=== PATIENT | female | born 1960 | race African-American/Black ===

== ENCOUNTER 2019-07-03 13:18 | Inpatient (IN) | payer OTHER ==
[~2019-07-03] VITALS: Ht 152.4 cm; Wt 68.5 kg
[2019-07-03] MEDS ORDERED: PANTOPRAZOLE 40 MG 10ML VIAL IV STA (13:29)
[2019-07-03] MEDS ORDERED: SODIUM CHLORIDE 0.9% 500ML 500 ML IV STA ×2 (13:29→15:39)
[2019-07-03 14:27] LABS: BASOPHILS # (AUTO) 0.1 (0.0-0.1); EOSINOPHILS # (AUTO) 0.2 (0.0-0.4); EOSINOPHILS % 1.5 % (0.0-6.0); LYMPHOCYTES # (AUTO) 3.5 (1.0-3.2); MEAN CORPUSCULAR HEMOGLOBIN 28.1 pg (28-32); MEAN CORPUSCULAR HGB CONC 34.9 g/dL (31-35); MEAN CORPUSCULAR VOLUME 80.4 fL (81-99); MONOCYTES # (AUTO) 1.9 (0.2-0.8); MONOCYTES % 16.3 % (4.4-11.3); NEUTROPHILS % 50.9 % (38.7-80.0); PLATELET COUNT 153 x10e3/uL (140-360); RED BLOOD COUNT 2.35 x10e6/uL (3.6-5.1); RED CELL DISTRIBUTION WIDTH 21.1 % (11.7-14.4)
[2019-07-03 14:30] LABS: HEMOGLOBIN 6.6 g/dL (12.0-16.0); INR 1.86; PROTHROMBIN TIME 22.8 seconds (11.9-14.5)
[2019-07-03 14:31] LABS: HEMATOCRIT 18.9 % (34.2-44.1); PARTIAL THROMBOPLASTIN TIME 59.9 seconds (23.8-35.5)
[2019-07-03 14:39] LABS: ALBUMIN 1.8 g/dL (3.5-5.0); ALBUMIN/GLOBULIN RATIO 0.4 (0.8-2.0); ANION GAP 12.1 mmol/L (8-16); CALCIUM 8.9 mg/dL (8.4-10.2); CREATININE, SERUM 3.42 mg/dL (0.57-1.11); POTASSIUM 5.1 mmol/L (3.5-5.1)
[2019-07-03 14:45] LABS: CREATINE KINASE MB 11.3 ng/mL (0-5.0)
[2019-07-03] MEDS ORDERED: SODIUM CHLORIDE 0.9% 250ML 250 ML IV ONE (14:45)
[2019-07-03] MEDS ORDERED: ASPIR 8181 MG PO (14:57)
[2019-07-03] MEDS ORDERED: DOCUSATE SODIU100 MG PO (14:58)
[2019-07-03] MEDS ORDERED: CLONIDINE HCL0.1 MG PO (14:58)
[2019-07-03] MEDS ORDERED: ATORVASTATIN CA20 MG PO (14:58)
[2019-07-03] MEDS ORDERED: LOSARTAN POTAS100 MG PO (14:59)
[2019-07-03] MEDS ORDERED: ELIQUIS5 MG PO (14:59)
[2019-07-03] MEDS ORDERED: ONDANSETRON2 MG/1 ML PO (15:00)
[2019-07-03] MEDS ORDERED: METOPROLOL TART25 MG PO (15:00)
[2019-07-03] MEDS ORDERED: POLYETHYLENE GL17 GM PO (15:01)
[2019-07-03] MEDS ORDERED: POTASSIUM CHLO20 ME1 PO (15:02)
[2019-07-03] MEDS ORDERED: RYTARY ER 23.71 EACH PO (15:03)
[2019-07-03] MEDS ORDERED: SPIRONOLACTONE25 MG PO (15:03)
[2019-07-03] MEDS ORDERED: SODIUM CHLORIDE 0.9% 1000ML 1,000 ML IV STA (15:39)
[2019-07-03] MEDS ORDERED: SODIUM CHLORIDE 0.9% 50ML 50 ML ONE (16:00)
[2019-07-03] MEDS ORDERED: IOPAMIDOL 370 MG/ML 200 ML INFUS..BTL INJ ONE (16:00)
--- NOTE | 2019-07-03 17:02 | Diagnostic Imaging Report ---
EXAM: CT Abdomen and Pelvis WITH intravenous contrast INDICATION: Abdominal pain, rectal bleeding COMPARISON: None. TECHNIQUE: Abdomen and pelvis were scanned utilizing a multidetector helical scanner from the lung base to the pubic symphysis after administration of IV contrast. Coronal and sagittal reformations were obtained. Routine protocol was performed. Scan was performed during portal venous phase. IV CONTRAST: 100mL of Isovue 370 ORAL CONTRAST: Water RADIATION DOSE: Total DLP: 316 mGy*cm Dose modulation, iterative reconstruction, and/or weight based adjustment of the mA/kV was utilized to reduce the radiation dose to as low as reasonably achievable. FINDINGS: LOWER THORAX: Catheter tip in the right atrium. HEPATOBILIARY: No focal liver lesion. No biliary ductal dilation. Status post cholecystectomy. SPLEEN: No splenomegaly. PANCREAS: No focal masses or ductal dilatation. ADRENALS: 1.9 cm left adrenal nodule. 1.9 cm right adrenal nodule. KIDNEYS/URETERS: No hydronephrosis or renal calculi. Bilateral simple renal cysts. PELVIC ORGANS/BLADDER: Unremarkable. PERITONEUM / RETROPERITONEUM: No free air or fluid. LYMPH NODES: No lymphadenopathy. VESSELS: Mild atherosclerotic calcifications of the nonaneurysmal abdominal aorta and major branches. GI TRACT: No abnormal bowel thickening. No bowel obstruction. Normal appendix. BONES AND SOFT TISSUES: No acute osseous injury. No suspicious lytic or blastic lesions. Mild diffuse subcutaneous soft tissue edema. IMPRESSION: No acute findings in the abdomen or pelvis. Bilateral adrenal nodules. These nodules are indeterminate based on attenuation but most likely represent benign adenomas. Follow-up adrenal mass protocol is recommended in 12 months. If the nodules are stable at that time, no further follow-up imaging will be necessary. Signed by: Tete Borges MD on 07/03/2019 4:59 PM
--- OUTSIDE RECORDS SUMMARY | 2019-07-03 17:04 | XMS REPORT ---
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 Allergies, Adverse Reactions, Alerts Allergy Name Allergy Type Status Severity Reaction(s) Onset Date Inactive Date Treating Clinician Comments No Known Allergies DA Active U 2017-03-11 00:00:00 Medications This patient has no known medications. Results Test Description Test Time Test Comments Text Results Atomic Results Result Comments AB HEPATITIS A 2019-06-23 07:09:00 AB HEPATITIS A (test code=HAVAB) Negative Negative AB HEPATITIS A [id number] 07:09:00* Test Item Value Reference Range Comments AB HEPATITIS A IGM (test code=HAVMAB) AB HEPATITIS [id number] 07:09:00* Test Item Value Reference Range Comments AB HEPATITIS A (test code=HAVAB) Negative Negative AB HEPATITIS A [id number] 07:09:00* Test Item Value Reference Range Comments AB HEPATITIS A IGM (test code=HAVMAB) Negative Negative Performed At: [facility] [address] [id number] Lucio Augustin MD Ph:[phone] COMPREHENSIVE METABOLIC [id number] 06:11:00* Test Item Value Reference Range Comments SODIUM (test code=NA) 136 mmol/L 134-147 POTASSIUM (test code=K) 3.2 mmol/L 3.4-5.0 CHLORIDE (test code=CL) 103 mmol/L 100-108 CARBON DIOXIDE (test code=CO2) 25 mmol/L 21-32 ANION GAP (test code=GAP) 8.0 GAP calc 4.0-15.0 GLUCOSE (test code=GLU) 114 MG/DL 70-110 BLOOD UREA NITROGEN (test code=BUN) 30 MG/DL 7-18 GLOMERULAR FILTRATION RATE (test code=GFR) 24 estGFR >60 CREATININE (test code=CREAT) 2.6 MG/DL 0.6-1.0 TOTAL PROTEIN (test code=PROT) 6.3 G/DL 6.4-8.2 ALBUMIN (test code=ALB) 1.8 G/DL 3.4-5.0 GLOBULIN (test code=GLOB) 4.5 GM/dL ALBUMIN/GLOBULIN RATIO (test code=A/G) 0.4 RATIO 1.2-2.2 CALCIUM (test code=CA) 8.4 MG/DL 8.5-10.1 BILIRUBIN TOTAL (test code=BILT) 2.50 MG/DL 0.2-1.2 SGOT/AST (test code=AST) 1488 Unit/L 15-37 SGPT/ALT (test code=ALT) 1697 Unit/L 12-78 ALKALINE PHOSPHATASE TOTAL (test code=ALKP) 259 Unit/L 45-117 CBC W/AUTO [id number] 05:52:00* Test Item Value Reference Range Comments WHITE BLOOD CELL (test code=WBC) 7.9 K/mm3 3.5-11.0 RED BLOOD CELL (test code=RBC) 3.13 M/mm3 4.70-6.10 HEMOGLOBIN (test code=HGB) 8.9 G/DL 10.4-14.9 HEMATOCRIT (test code=HCT) 24.5 % 31.5-44.1 MEAN CELL VOLUME (test code=MCV) 78.3 Fl 84.5-98.6 MEAN CELL HGB (test code=MCH) 28.4 pg 27.0-34.2 MEAN CELL HGB CONCETRATION (test code=MCHC) 36.3 G/DL 31.5-34.0 RED CELL DISTRIBUTION WIDTH (test code=RDW) 20.6 SD 11.5-14.5 PLATELET COUNT (test code=PLT) 241.0 K/mm3 150-450 MEAN PLATELET VOLUME (test code=MPV) 10.90 fL 7.0-10.5 NEUTROPHIL % (test code=NT%) 58.5 % 40-76 LYMPHOCYTE % (test code=LY%) 20.0 % 20.5-51.1 MONOCYTE % (test code=MO%) 17.0 % 1.7-9.3 EOSINOPHIL % (test code=EO%) 3.5 % 0.0-6.0 BASOPHIL % (test code=BA%) 1.0 % 0.0-2.0 NEUTROPHIL # (test code=NT#) 4.62 K/mm3 1.8-7.6 LYMPHOCYTE # (test code=LY#) 1.6 K/mm3 0.6-3.2 MONOCYTE # (test code=MO#) 1.3 K/mm3 0.3-1.1 EOSINOPHIL # (test code=EO#) 0.3 K/mm3 0.0-0.4 BASOPHIL # (test code=BA#) 0.1 K/mm3 0.0-0.1 MANUAL DIFF REQUIRED (test code=MDIFF) NO DIFF/SCN CRITERIA - SP FLUORO GUID CTRL ACC [id number] 17:23:00 Name: KATY ESTES [facility] : 1960 Age/S: 59 / F [address] [address] [place] Unit #: [id number] Loc: [place] [address] Phys: Jama Osorio MD Acct: [id number] Dis Date: Status: ADM IN PHONE #: [phone] Exam Date: 06/19/2019 3038 FAX #: Reason: TUNNELED DIALYSIS CATH PLACEMENT EXAMS: CPT: [id number] SP FLUORO GUID CTRL ACC DEV 35800 Fluoro Time: :24 DAP (Gy m2): 45 Air Kerma (mGy): 2 EXAMINATION: TUNNELED CENTRAL VENOUS CATHETER PLACEMENT USING ULTRASOUND AND FLUOROSCOPIC GUIDANCE. LOCATION: S17. HISTORY: LUIS on CKD, hyperkalemia, request is made of tunneled dialysis catheter. COMPARISON: None. SEDATION: Moderate sedation was administered under the attending physician's direction and continuous monitoring by a trained nurse specialist who was independent from those actually performing the procedure. Total monitored intraservice sedation time was 25 minutes. RADIATION DOSE: 2 mGy. TECHNIQUE: The risks, benefits and alternatives were discussed and informed consent was obtained. Prior to beginning the procedure, [place] Protocol was used to confirm the patient's identity and planned procedure. Prior to the procedure, the central veins were evaluated by ultrasound, an image recorded and saved in PACS. Maximum sterile barriers including cap, mask, hand hygiene, sterile gloves, sterile gown, large sterile drape and cutaneous antisepsis were used. The skin over the right internal jugular vein was sterilely prepped, draped and infiltrated with 1% lidocaine. The vein was accessed with a 21 gauge needle using realtime ultrasound guidance. A guidewire and catheter were then passed centrally using fluoroscopic guidance. The intravascular irving th from the access site to the right atrium was then assessed. After infiltrating the skin in the subclavicular region with 1% lidoca ine, a short transverse incision was made and the 24 cm DuraMax was tunnel ed to the internal jugular access site and inserted through a peel-away sh eath. The catheter was flushed with 100U/ml heparin. The incision in the lower neck was closed using 3-0 Vicryl and Dermabond. A sterile dr essing was applied. ESTIMATED BLOOD LOSS: Less than 30 milliliter s. DISCHARGED TO: Recovery and then to inpatient unit. PAGE 1 Signed Report (CONTINUED) Norberto caass: KATY ESTES [facility] : Age/S: 59 / F [address] [facility] Unit #: [id number] Loc: [place] [address] Phys: Jenni Osorio MD Acct: [id number] Dis Da te: Status: ADM IN PHONE #: Exam Date: 06/19/2019 1414 FAX #: Reason: TUNNELED DIALYSIS CATH PLACEMENT EXAMS: CPT: [id number] SP FLUORO GUID CTRL ACC DEV 72534 Fluoro Time: :24 DAP (Gy m2): 45 Air Kerma (mGy): 2 <Continued> CONDITION: Stable. FINDINGS: Ultrasound image shows a patent vein in the lower neck. The final fluoroscopic image demonstrates the catheter with its tip in the right atrium. No complications are seen. IMPRESSION: Successful tunneled catheter placement. PLAN: The catheter is ready for immediate use. When treatment is completed, removal can be scheduled by calling VIR. at 1723 Reported and signed by: Juliocesar Demarco M.D. CC: Jama Osorio MD PAGE 2 Signed Report Name: [place] : 1960 Age/S: 59 / F [address] [address] [place] Unit #: [id number] Loc: [place] [address] Phys: Jama Osorio MD Acct: [id number] Dis Date: Status: ADM IN PHONE #: [phone] Exam Date: 06/19/2019 1415 FAX #: Reason: TUNNELED DIALYSIS CATH PLACEMENT EXAMS: CPT: [id number] SP FLUORO GUID CTRL ACC DEV 60800 Fluoro Time: :24 DAP (Gy m2): 45 Air Kerma (mGy): 2 <Continued> Technologist: Prashanth Rivas RT(R) Trnscb Date/Time: 06/19/2019 (1722) [email or web address] Orig Print D/T: S: 06/19/2019 (1725) PAGE 3 Signed Report CBC W/AUTO [id number] 05:41:00* Test Item Value Reference Range Comments WHITE BLOOD CELL (test code=WBC) 11.0 K/mm3 3.5-11.0 RED BLOOD CELL (test code=RBC) 3.32 M/mm3 4.70-6.10 HEMOGLOBIN (test code=HGB) 9.3 G/DL 10.4-14.9 HEMATOCRIT (test code=HCT) 26.0 % 31.5-44.1 MEAN CELL VOLUME (test code=MCV) 78.3 Fl 84.5-98.6 MEAN CELL HGB (test code=MCH) 28.0 pg 27.0-34.2 MEAN CELL HGB CONCETRATION (test code=MCHC) 35.8 G/DL 31.5-34.0 RED CELL DISTRIBUTION WIDTH (test code=RDW) 20.4 SD 11.5-14.5 PLATELET COUNT (test code=PLT) 261.0 K/mm3 150-450 MEAN PLATELET VOLUME (test code=MPV) 12.00 fL 7.0-10.5 NEUTROPHIL % (test code=NT%) 62.4 % 40-76 LYMPHOCYTE % (test code=LY%) 19.3 % 20.5-51.1 MONOCYTE % (test code=MO%) 14.7 % 1.7-9.3 EOSINOPHIL % (test code=EO%) 3.1 % 0.0-6.0 BASOPHIL % (test code=BA%) 0.5 % 0.0-2.0 NEUTROPHIL # (test code=NT#) 6.84 K/mm3 1.8-7.6 LYMPHOCYTE # (test code=LY#) 2.1 K/mm3 0.6-3.2 MONOCYTE # (test code=MO#) 1.6 K/mm3 0.3-1.1 EOSINOPHIL # (test code=EO#) 0.3 K/mm3 0.0-0.4 BASOPHIL # (test code=BA#) 0.1 K/mm3 0.0-0.1 MANUAL DIFF REQUIRED (test code=MDIFF) NO DIFF/SCN CRITERIA SLIDE REVIEW CONSISTANT WITH AUTO DIFFERENTIAL. CBC W/AUTO [id number] 05:41:00* Test Item Value Reference Range Comments WHITE BLOOD CELL (test code=WBC) 11.0 K/mm3 3.5-11.0 RED BLOOD CELL (test code=RBC) 3.32 M/mm3 4.70-6.10 HEMOGLOBIN (test code=HGB) 9.3 G/DL 10.4-14.9 HEMATOCRIT (test code=HCT) 26.0 % 31.5-44.1 MEAN CELL VOLUME (test code=MCV) 78.3 Fl 84.5-98.6 MEAN CELL HGB (test code=MCH) 28.0 pg 27.0-34.2 MEAN CELL HGB CONCETRATION (test code=MCHC) 35.8 G/DL 31.5-34.0 RED CELL DISTRIBUTION WIDTH (test code=RDW) 20.4 SD 11.5-14.5 PLATELET COUNT (test code=PLT) 261.0 K/mm3 150-450 MEAN PLATELET VOLUME (test code=MPV) 12.00 fL 7.0-10.5 NEUTROPHIL % (test code=NT%) 62.4 % 40-76 LYMPHOCYTE % (test code=LY%) 19.3 % 20.5-51.1 MONOCYTE % (test code=MO%) 14.7 % 1.7-9.3 EOSINOPHIL % (test code=EO%) 3.1 % 0.0-6.0 BASOPHIL % (test code=BA%) 0.5 % 0.0-2.0 NEUTROPHIL # (test code=NT#) 6.84 K/mm3 1.8-7.6 LYMPHOCYTE # (test code=LY#) 2.1 K/mm3 0.6-3.2 MONOCYTE # (test code=MO#) 1.6 K/mm3 0.3-1.1 EOSINOPHIL # (test code=EO#) 0.3 K/mm3 0.0-0.4 BASOPHIL # (test code=BA#) 0.1 K/mm3 0.0-0.1 MANUAL DIFF REQUIRED (test code=MDIFF) NO DIFF/SCN CRITERIA SLIDE REVIEW CONSISTANT WITH AUTO DIFFERENTIAL. RBC [id number] 05:41:00* Test Item Value Reference Range Comments ANISOCYTOSIS (test code=ANISO) TRACE NONE TARGET CELLS (test code=TGT) 1+ ON SCAN NONE PLATELET ESTIMATE (test code=PLTEST) ADEQUATE THOUSAND ADEQUATE PLATELET MORPHOLOGY (test code=PLTMORPH) NORMAL CBC W/AUTO [id number] 05:41:00* Test Item Value Reference Range Comments WHITE BLOOD CELL (test code=WBC) 11.0 K/mm3 3.5-11.0 RED BLOOD CELL (test code=RBC) 3.32 M/mm3 4.70-6.10 HEMOGLOBIN (test code=HGB) 9.3 G/DL 10.4-14.9 HEMATOCRIT (test code=HCT) 26.0 % 31.5-44.1 MEAN CELL VOLUME (test code=MCV) 78.3 Fl 84.5-98.6 MEAN CELL HGB (test code=MCH) 28.0 pg 27.0-34.2 MEAN CELL HGB CONCETRATION (test code=MCHC) 35.8 G/DL 31.5-34.0 RED CELL DISTRIBUTION WIDTH (test code=RDW) 20.4 SD 11.5-14.5 PLATELET COUNT (test code=PLT) 261.0 K/mm3 150-450 MEAN PLATELET VOLUME (test code=MPV) 12.00 fL 7.0-10.5 NEUTROPHIL % (test code=NT%) 62.4 % 40-76 LYMPHOCYTE % (test code=LY%) 19.3 % 20.5-51.1 MONOCYTE % (test code=MO%) 14.7 % 1.7-9.3 EOSINOPHIL % (test code=EO%) 3.1 % 0.0-6.0 BASOPHIL % (test code=BA%) 0.5 % 0.0-2.0 NEUTROPHIL # (test code=NT#) 6.84 K/mm3 1.8-7.6 LYMPHOCYTE # (test code=LY#) 2.1 K/mm3 0.6-3.2 MONOCYTE # (test code=MO#) 1.6 K/mm3 0.3-1.1 EOSINOPHIL # (test code=EO#) 0.3 K/mm3 0.0-0.4 BASOPHIL # (test code=BA#) 0.1 K/mm3 0.0-0.1 MANUAL DIFF REQUIRED (test code=MDIFF) NO DIFF/SCN CRITERIA SLIDE REVIEW CONSISTANT WITH AUTO DIFFERENTIAL. BASIC METABOLIC [id number] 05:33:00* Test Item Value Reference Range Comments SODIUM (test code=NA) 135 mmol/L 134-147 POTASSIUM (test code=K) 4.5 mmol/L 3.4-5.0 CHLORIDE (test code=CL) 104 mmol/L 100-108 CARBON DIOXIDE (test code=CO2) 22 mmol/L 21-32 ANION GAP (test code=GAP) 9.0 GAP calc 4.0-15.0 GLUCOSE (test code=GLU) 125 MG/DL 70-110 BLOOD UREA NITROGEN (test code=BUN) 73 MG/DL 7-18 GLOMERULAR FILTRATION RATE (test code=GFR) 12 estGFR >60 CREATININE (test code=CREAT) 4.7 MG/DL 0.6-1.0 CALCIUM (test code=CA) 8.9 MG/DL 8.5-10.1 COMPREHENSIVE METABOLIC [id number] 05:33:00* Test Item Value Reference Range Comments TOTAL PROTEIN (test code=PROT) 6.5 G/DL 6.4-8.2 ALBUMIN (test code=ALB) 1.8 G/DL 3.4-5.0 GLOBULIN (test code=GLOB) 4.7 GM/dL ALBUMIN/GLOBULIN RATIO (test code=A/G) 0.4 RATIO 1.2-2.2 BILIRUBIN TOTAL (test code=BILT) 2.20 MG/DL 0.2-1.2 SGOT/AST (test code=AST) 1219 Unit/L 15-37 SGPT/ALT (test code=ALT) 1464 Unit/L 12-78 ALKALINE PHOSPHATASE TOTAL (test code=ALKP) 271 Unit/L 45-117 PROTHROMBIN [id number] 05:13:00* Test Item Value Reference Range Comments PT PATIENT (test code=PTP) 21.1 SECONDS 9.3-12.9 INTERNATIONAL NORMAL RATIO (test code=INR) 1.84 INR Unit 0.8-1.2 THROMBOPLASTIN TIME [id number] 05:13:00* Test Item Value Reference Range Comments THROMBOPLASTIN TIME PARTIAL (test code=PTT) 31.9 SECONDS 26-35 CBC W/AUTO [id number] 05:07:00* Test Item Value Reference Range Comments WHITE BLOOD CELL (test code=WBC) 11.0 K/mm3 3.5-11.0 RED BLOOD CELL (test code=RBC) 3.32 M/mm3 4.70-6.10 HEMOGLOBIN (test code=HGB) 9.3 G/DL 10.4-14.9 HEMATOCRIT (test code=HCT) 26.0 % 31.5-44.1 MEAN CELL VOLUME (test code=MCV) 78.3 Fl 84.5-98.6 MEAN CELL HGB (test code=MCH) 28.0 pg 27.0-34.2 MEAN CELL HGB CONCETRATION (test code=MCHC) 35.8 G/DL 31.5-34.0 RED CELL DISTRIBUTION WIDTH (test code=RDW) 20.4 SD 11.5-14.5 PLATELET COUNT (test code=PLT) 261.0 K/mm3 150-450 MEAN PLATELET VOLUME (test code=MPV) 12.00 fL 7.0-10.5 NEUTROPHIL % (test code=NT%) % 40-76 LYMPHOCYTE % (test code=LY%) % 20.5-51.1 MONOCYTE % (test code=MO%) % 1.7-9.3 EOSINOPHIL % (test code=EO%) % 0.0-6.0 BASOPHIL % (test code=BA%) % 0.0-2.0 NEUTROPHIL # (test code=NT#) K/mm3 1.8-7.6 LYMPHOCYTE # (test code=LY#) K/mm3 0.6-3.2 MONOCYTE # (test code=MO#) K/mm3 0.3-1.1 EOSINOPHIL # (test code=EO#) K/mm3 0.0-0.4 BASOPHIL # (test code=BA#) K/mm3 0.0-0.1 MANUAL DIFF REQUIRED (test code=MDIFF) DIFF/SCN CRITERIA PROTHROMBIN [id number] 10:06:00* Test Item Value Reference Range Comments PT PATIENT (test code=PTP) 24.4 SECONDS 9.3-12.9 INTERNATIONAL NORMAL RATIO (test code=INR) 2.13 INR Unit 0.8-1.2 THROMBOPLASTIN TIME [id number] 10:06:00* Test Item Value Reference Range Comments THROMBOPLASTIN TIME PARTIAL (test code=PTT) 32.2 SECONDS 26-35 CBC W/AUTO [id number] 06:03:00* Test Item Value Reference Range Comments WHITE BLOOD CELL (test code=WBC) 11.4 K/mm3 3.5-11.0 RED BLOOD CELL (test code=RBC) 3.47 M/mm3 4.70-6.10 HEMOGLOBIN (test code=HGB) 9.5 G/DL 10.4-14.9 HEMATOCRIT (test code=HCT) 27.1 % 31.5-44.1 MEAN CELL VOLUME (test code=MCV) 78.1 Fl 84.5-98.6 MEAN CELL HGB (test code=MCH) 27.4 pg 27.0-34.2 MEAN CELL HGB CONCETRATION (test code=MCHC) 35.1 G/DL 31.5-34.0 RED CELL DISTRIBUTION WIDTH (test code=RDW) 20.2 SD 11.5-14.5 PLATELET COUNT (test code=PLT) 248.0 K/mm3 150-450 MEAN PLATELET VOLUME (test code=MPV) 11.30 fL 7.0-10.5 NEUTROPHIL % (test code=NT%) 64.2 % 40-76 LYMPHOCYTE % (test code=LY%) 18.0 % 20.5-51.1 MONOCYTE % (test code=MO%) 14.2 % 1.7-9.3 EOSINOPHIL % (test code=EO%) 3.0 % 0.0-6.0 BASOPHIL % (test code=BA%) 0.6 % 0.0-2.0 NEUTROPHIL # (test code=NT#) 7.31 K/mm3 1.8-7.6 LYMPHOCYTE # (test code=LY#) 2.1 K/mm3 0.6-3.2 MONOCYTE # (test code=MO#) 1.6 K/mm3 0.3-1.1 EOSINOPHIL # (test code=EO#) 0.3 K/mm3 0.0-0.4 BASOPHIL # (test code=BA#) 0.1 K/mm3 0.0-0.1 MANUAL DIFF REQUIRED (test code=MDIFF) NO DIFF/SCN CRITERIA SLIDE REVIEW CONSISTANT WITH AUTO DIFFERENTIAL. CBC W/AUTO [id number] 06:03:00* Test Item Value Reference Range Comments WHITE BLOOD CELL (test code=WBC) 11.4 K/mm3 3.5-11.0 RED BLOOD CELL (test code=RBC) 3.47 M/mm3 4.70-6.10 HEMOGLOBIN (test code=HGB) 9.5 G/DL 10.4-14.9 HEMATOCRIT (test code=HCT) 27.1 % 31.5-44.1 MEAN CELL VOLUME (test code=MCV) 78.1 Fl 84.5-98.6 MEAN CELL HGB (test code=MCH) 27.4 pg 27.0-34.2 MEAN CELL HGB CONCETRATION (test code=MCHC) 35.1 G/DL 31.5-34.0 RED CELL DISTRIBUTION WIDTH (test code=RDW) 20.2 SD 11.5-14.5 PLATELET COUNT (test code=PLT) 248.0 K/mm3 150-450 MEAN PLATELET VOLUME (test code=MPV) 11.30 fL 7.0-10.5 NEUTROPHIL % (test code=NT%) 64.2 % 40-76 LYMPHOCYTE % (test code=LY%) 18.0 % 20.5-51.1 MONOCYTE % (test code=MO%) 14.2 % 1.7-9.3 EOSINOPHIL % (test code=EO%) 3.0 % 0.0-6.0 BASOPHIL % (test code=BA%) 0.6 % 0.0-2.0 NEUTROPHIL # (test code=NT#) 7.31 K/mm3 1.8-7.6 LYMPHOCYTE # (test code=LY#) 2.1 K/mm3 0.6-3.2 MONOCYTE # (test code=MO#) 1.6 K/mm3 0.3-1.1 EOSINOPHIL # (test code=EO#) 0.3 K/mm3 0.0-0.4 BASOPHIL # (test code=BA#) 0.1 K/mm3 0.0-0.1 MANUAL DIFF REQUIRED (test code=MDIFF) NO DIFF/SCN CRITERIA SLIDE REVIEW CONSISTANT WITH AUTO DIFFERENTIAL. RBC [id number] 06:03:00* Test Item Value Reference Range Comments ANISOCYTOSIS (test code=ANISO) 1+ NONE MICROCYTOSIS (test code=MICR) 1+ ON SCAN NONE HYPERSEGMENTED POLYS (test code=HYPP) TRACE ON SCAN NONE PLATELET ESTIMATE (test code=PLTEST) ADEQUATE THOUSAND ADEQUATE PLATELET MORPHOLOGY (test code=PLTMORPH) NORMAL CBC W/AUTO [id number] 06:03:00* Test Item Value Reference Range Comments WHITE BLOOD CELL (test code=WBC) 11.4 K/mm3 3.5-11.0 RED BLOOD CELL (test code=RBC) 3.47 M/mm3 4.70-6.10 HEMOGLOBIN (test code=HGB) 9.5 G/DL 10.4-14.9 HEMATOCRIT (test code=HCT) 27.1 % 31.5-44.1 MEAN CELL VOLUME (test code=MCV) 78.1 Fl 84.5-98.6 MEAN CELL HGB (test code=MCH) 27.4 pg 27.0-34.2 MEAN CELL HGB CONCETRATION (test code=MCHC) 35.1 G/DL 31.5-34.0 RED CELL DISTRIBUTION WIDTH (test code=RDW) 20.2 SD 11.5-14.5 PLATELET COUNT (test code=PLT) 248.0 K/mm3 150-450 MEAN PLATELET VOLUME (test code=MPV) 11.30 fL 7.0-10.5 NEUTROPHIL % (test code=NT%) 64.2 % 40-76 LYMPHOCYTE % (test code=LY%) 18.0 % 20.5-51.1 MONOCYTE % (test code=MO%) 14.2 % 1.7-9.3 EOSINOPHIL % (test code=EO%) 3.0 % 0.0-6.0 BASOPHIL % (test code=BA%) 0.6 % 0.0-2.0 NEUTROPHIL # (test code=NT#) 7.31 K/mm3 1.8-7.6 LYMPHOCYTE # (test code=LY#) 2.1 K/mm3 0.6-3.2 MONOCYTE # (test code=MO#) 1.6 K/mm3 0.3-1.1 EOSINOPHIL # (test code=EO#) 0.3 K/mm3 0.0-0.4 BASOPHIL # (test code=BA#) 0.1 K/mm3 0.0-0.1 MANUAL DIFF REQUIRED (test code=MDIFF) NO DIFF/SCN CRITERIA SLIDE REVIEW CONSISTANT WITH AUTO DIFFERENTIAL. BASIC METABOLIC [id number] 05:10:00* Test Item Value Reference Range Comments SODIUM (test code=NA) 134 mmol/L 134-147 POTASSIUM (test code=K) 4.4 mmol/L 3.4-5.0 CHLORIDE (test code=CL) 103 mmol/L 100-108 CARBON DIOXIDE (test code=CO2) 22 mmol/L 21-32 ANION GAP (test code=GAP) 9.0 GAP calc 4.0-15.0 GLUCOSE (test code=GLU) 144 MG/DL 70-110 BLOOD UREA NITROGEN (test code=BUN) 62 MG/DL 7-18 GLOMERULAR FILTRATION RATE (test code=GFR) 12 estGFR >60 CREATININE (test code=CREAT) 4.7 MG/DL 0.6-1.0 CALCIUM (test code=CA) 8.7 MG/DL 8.5-10.1 CBC W/AUTO [id number] 05:06:00* Test Item Value Reference Range Comments WHITE BLOOD CELL (test code=WBC) 11.4 K/mm3 3.5-11.0 RED BLOOD CELL (test code=RBC) 3.47 M/mm3 4.70-6.10 HEMOGLOBIN (test code=HGB) 9.5 G/DL 10.4-14.9 HEMATOCRIT (test code=HCT) 27.1 % 31.5-44.1 MEAN CELL VOLUME (test code=MCV) 78.1 Fl 84.5-98.6 MEAN CELL HGB (test code=MCH) 27.4 pg 27.0-34.2 MEAN CELL HGB CONCETRATION (test code=MCHC) 35.1 G/DL 31.5-34.0 RED CELL DISTRIBUTION WIDTH (test code=RDW) 20.2 SD 11.5-14.5 PLATELET COUNT (test code=PLT) 248.0 K/mm3 150-450 MEAN PLATELET VOLUME (test code=MPV) 11.30 fL 7.0-10.5 NEUTROPHIL % (test code=NT%) % 40-76 LYMPHOCYTE % (test code=LY%) % 20.5-51.1 MONOCYTE % (test code=MO%) % 1.7-9.3 EOSINOPHIL % (test code=EO%) % 0.0-6.0 BASOPHIL % (test code=BA%) % 0.0-2.0 NEUTROPHIL # (test code=NT#) K/mm3 1.8-7.6 LYMPHOCYTE # (test code=LY#) K/mm3 0.6-3.2 MONOCYTE # (test code=MO#) K/mm3 0.3-1.1 EOSINOPHIL # (test code=EO#) K/mm3 0.0-0.4 BASOPHIL # (test code=BA#) K/mm3 0.0-0.1 MANUAL DIFF REQUIRED (test code=MDIFF) DIFF/SCN CRITERIA - US ABDOMEN [id number] 09:24:00 Name: KATY ESTES [facility] : 1960 Age/S: 59 / F [address] [address] [place] Unit #: [id number] Loc: [place] [address] Phys: Theodore Mitchell MD Acct: [id number] Dis Date: Status: ADM IN PHONE #: [phone] Exam Date: 06/17/2019 0830 FAX #: Reason: ELEVATED LFTS, ABDOMINAL PAIN EXAMS: CPT: [id number] US ABDOMEN COMPLETE [id number] EXAMINATION: - US ABDOMEN COMPLETE. LOCATION: S17. HISTORY: Elevated LFTs, abdominal pain, hyperkalemia, CKD. COMPARISON: US renal 06/10/2019. TECHNIQUE: Examination of the liver, spleen, kidneys, pancreas, gallbladder, bile ducts, aorta and inferior vena cava was performed. FINDINGS: The visualized liver parenchyma demonstrates diffusely increased echogenicity. The main portal vein is patent. Small amount of upper abdominal free fluid. There is no intra or extrahepatic biliary ductal dilatation. The common duct measures 4 mm. The gallbladder is surgically absent. The visualized pancreatic head and body appears unremarkable, evaluation of the tail is limited by overlying bowel gas. Spleen is unremarkable in size. The right and left kidney measure 10.1 cm and 8.1 cm respectively. There is no hydronephrosis. 2.1 cm cyst in lower pole of right kidney. 1 cm cyst in lower pole of left kidney. The visualized portions of abdominal aorta and IVC appear unremarkable. IMPRESSION: Cholecystec lewis. Diffusely increased echogenicity of liver parenchyma, no nspecific, most commonly described in the setting of hepatic steatosis v ersus underlying parenchymal process. Small upper abdo peggy free fluid. PAGE 1 Signed Report (CONTINUED) Name: KATY ESTES [place] : 1960 Age/S: 59 / F [id number] [address] [place] Unit #: [id number] Loc: [place] [address] Phys: Theodore Mitchell MD Acct: [id number] Dis Date: Status: ADM IN PHONE #: [phone] Exam Date: 06/17/2019 08 FAX #: Reason: ELEVATED LFTS, ABDOMINAL PAIN EXAMS: CPT: [id number] US ABDOMEN COMPLETE [id number] < Continued> at 0924 Reported and signed by: Juliocesar Demarco M.D. CC: Theodore Mitchell MD; Lizett BENAVIDEZ; Jama Osorio MD Technologist: Renetta Franco [facility] Date/Time: 06/17/2019 (923) [email or web address] PAGE 2 Signed Report Name: KATY ESTES [place] : 1960 Age/S: 59 / F [id number] [address] [place] Unit #: [id number] Loc: [place] [address] Phys: Theodore Mitchell MD Acct: [id number] Dis Date: Status: ADM IN PHONE #: [phone] Exam Date: 06/17/2019 0830 FAX #: Reason: ELEVATED LFTS, ABDOMINAL PAIN EXAMS: CPT: [id number] US ABDOMEN COMPLETE 16401 <Continued> Orig Print D/T: S: 06/17/2019 (926) Probe: PAGE 3 Signed Report COMPREHENSIVE METABOLIC [id number] 06:15:00* Test Item Value Reference Range Comments SODIUM (test code=NA) 134 mmol/L 134-147 POTASSIUM (test code=K) 4.7 mmol/L 3.4-5.0 CHLORIDE (test code=CL) 102 mmol/L 100-108 CARBON DIOXIDE (test code=CO2) 25 mmol/L 21-32 ANION GAP (test code=GAP) 7.0 GAP calc 4.0-15.0 GLUCOSE (test code=GLU) 283 MG/DL 70-110 BLOOD UREA NITROGEN (test code=BUN) 52 MG/DL 7-18 GLOMERULAR FILTRATION RATE (test code=GFR) 14 estGFR >60 CREATININE (test code=CREAT) 4.2 MG/DL 0.6-1.0 TOTAL PROTEIN (test code=PROT) 5.9 G/DL 6.4-8.2 ALBUMIN (test code=ALB) 1.7 G/DL 3.4-5.0 GLOBULIN (test code=GLOB) 4.2 GM/dL ALBUMIN/GLOBULIN RATIO (test code=A/G) 0.4 RATIO 1.2-2.2 CALCIUM (test code=CA) 8.5 MG/DL 8.5-10.1 BILIRUBIN TOTAL (test code=BILT) 1.90 MG/DL 0.2-1.2 SGOT/AST (test code=AST) 996 Unit/L 15-37 SGPT/ALT (test code=ALT) 1142 Unit/L 12-78 ALKALINE PHOSPHATASE TOTAL (test code=ALKP) 267 Unit/L 45-117 [id number] 06:15:00* Test Item Value Reference Range Comments LIPASE (test code=LIP) 4061 Unit/L 114-286 CBC W/AUTO [id number] 06:08:00* Test Item Value Reference Range Comments WHITE BLOOD CELL (test code=WBC) 12.8 K/mm3 3.5-11.0 RED BLOOD CELL (test code=RBC) 3.27 M/mm3 4.70-6.10 HEMOGLOBIN (test code=HGB) 9.1 G/DL 10.4-14.9 HEMATOCRIT (test code=HCT) 25.7 % 31.5-44.1 MEAN CELL VOLUME (test code=MCV) 78.6 Fl 84.5-98.6 MEAN CELL HGB (test code=MCH) 27.8 pg 27.0-34.2 MEAN CELL HGB CONCETRATION (test code=MCHC) 35.4 G/DL 31.5-34.0 RED CELL DISTRIBUTION WIDTH (test code=RDW) 20.0 SD 11.5-14.5 PLATELET COUNT (test code=PLT) 234.0 K/mm3 150-450 MEAN PLATELET VOLUME (test code=MPV) 11.60 fL 7.0-10.5 NEUTROPHIL % (test code=NT%) 70.7 % 40-76 LYMPHOCYTE % (test code=LY%) 15.2 % 20.5-51.1 MONOCYTE % (test code=MO%) 12.1 % 1.7-9.3 EOSINOPHIL % (test code=EO%) 1.5 % 0.0-6.0 BASOPHIL % (test code=BA%) 0.5 % 0.0-2.0 NEUTROPHIL # (test code=NT#) 9.05 K/mm3 1.8-7.6 LYMPHOCYTE # (test code=LY#) 2.0 K/mm3 0.6-3.2 MONOCYTE # (test code=MO#) 1.6 K/mm3 0.3-1.1 EOSINOPHIL # (test code=EO#) 0.2 K/mm3 0.0-0.4 BASOPHIL # (test code=BA#) 0.1 K/mm3 0.0-0.1 MANUAL DIFF REQUIRED (test code=MDIFF) NO DIFF/SCN CRITERIA SLIDE REVIEW CONSISTANT WITH AUTO DIFFERENTIAL. GLUCOSE BEDSIDE [id number] 05:38:00* Test Item Value Reference Range Comments GLUCOSE BEDSIDE TESTING (test code=GLUBED) 254 mg/dL 70-110 GLUCOSE BEDSIDE [id number] 05:38:00* Test Item Value Reference Range Comments GLUCOSE BEDSIDE TESTING (test code=GLUBED) 124 mg/dL 70-110 CBC W/AUTO [id number] 04:16:00* Test Item Value Reference Range Comments WHITE BLOOD CELL (test code=WBC) 12.8 K/mm3 3.5-11.0 RED BLOOD CELL (test code=RBC) 3.27 M/mm3 4.70-6.10 HEMOGLOBIN (test code=HGB) 9.1 G/DL 10.4-14.9 HEMATOCRIT (test code=HCT) 25.7 % 31.5-44.1 MEAN CELL VOLUME (test code=MCV) 78.6 Fl 84.5-98.6 MEAN CELL HGB (test code=MCH) 27.8 pg 27.0-34.2 MEAN CELL HGB CONCETRATION (test code=MCHC) 35.4 G/DL 31.5-34.0 RED CELL DISTRIBUTION WIDTH (test code=RDW) 20.0 SD 11.5-14.5 PLATELET COUNT (test code=PLT) 234.0 K/mm3 150-450 MEAN PLATELET VOLUME (test code=MPV) 11.60 fL 7.0-10.5 NEUTROPHIL % (test code=NT%) % 40-76 LYMPHOCYTE % (test code=LY%) % 20.5-51.1 MONOCYTE % (test code=MO%) % 1.7-9.3 EOSINOPHIL % (test code=EO%) % 0.0-6.0 BASOPHIL % (test code=BA%) % 0.0-2.0 NEUTROPHIL # (test code=NT#) K/mm3 1.8-7.6 LYMPHOCYTE # (test code=LY#) K/mm3 0.6-3.2 MONOCYTE # (test code=MO#) K/mm3 0.3-1.1 EOSINOPHIL # (test code=EO#) K/mm3 0.0-0.4 BASOPHIL # (test code=BA#) K/mm3 0.0-0.1 MANUAL DIFF REQUIRED (test code=MDIFF) DIFF/SCN CRITERIA NEUTROPHIL CYTOPLASMIC [id number] 15:09:00* Test Item Value Reference Range Comments AB ANTI-NEUTROPHIL CYTO C (test code=NEUTCABC) <1:20 titer Neg:<1:20 AB ANTI-NEUTROPHIL CYTO P (test code=NEUTCAB-P) <1:20 titer Neg:<1:20 The presence of positive fluorescence exhibiting P-ANCA orC-ANCA patterns alone is not specific for the diagnosis ofWegener's Granulomatosis (WG) or microscopic polyangiitis.Decisions about treatment should not be based solely onANCA IFA results. The [employer] ANCA Group Consensusrecommends follow up testing of positive sera with both WI-3 and MPO-ANCA enzyme immunoassays. As many as 5% serumsamples are positive only by EIA. Ref. AM J Clin [id number];111:507-513. ATYPICAL ANCA (test code=ANCACOM) <1:20 titer Neg:<1:20 The atypical pANCA pattern has been observed in asignificant percentage of patients with ulcerative colitis,primary sclerosing cholangitis and autoimmune hepatitis.Performed At: [facility] [id number] Sanjai MD Ph:[phone] COMPLEMENT [id number] 15:09:00* Test Item Value Reference Range Comments COMPLEMENT C3 (test code=COMC3) 87 mg/dL 82-167 Performed At: [facility] [id number] Augustin MD Ph:[phone] COMPLEMENT [id number] 15:09:00* Test Item Value Reference Range Comments COMPLEMENT C4 (test code=COMC4) 4 mg/dL 14-44 NEUTROPHIL CYTOPLASMIC [id number] 15:09:00* Test Item Value Reference Range Comments AB ANTI-NEUTROPHIL CYTO C (test code=NEUTCABC) <1:20 titer Neg:<1:20 AB ANTI-NEUTROPHIL CYTO P (test code=NEUTCAB-P) <1:20 titer Neg:<1:20 The presence of positive fluorescence exhibiting P-ANCA orC-ANCA patterns alone is not specific for the diagnosis ofWegener's Granulomatosis (WG) or microscopic polyangiitis.Decisions about treatment should not be based solely onANCA IFA results. The [employer] ANCA [employer] Consensusrecommends follow up testing of positive sera with both WI-3 and MPO-ANCA enzyme immunoassays. As many as 5% serumsamples are positive only by EIA. Ref. AM J Clin [id number];111:507-513. ATYPICAL ANCA (test code=ANCACOM) <1:20 titer Neg:<1:20 The atypical pANCA pattern has been observed in asignificant percentage of patients with ulcerative colitis,primary sclerosing cholangitis and autoimmune hepatitis.Performed At: [facility] [id number] Terry MD Ph:[phone] COMPLEMENT [id number] 15:09:00* Test Item Value Reference Range Comments COMPLEMENT C3 (test code=COMC3) 87 mg/dL 82-167 Performed At: [facility] [id number] Augustin MD Ph:[phone] COMPLEMENT [id number] 15:09:00* Test Item Value Reference Range Comments COMPLEMENT C4 (test code=COMC4) 4 mg/dL 14-44 ANTINUCLEAR ANTIBODIES [id number] 14:08:00* Test Item Value Reference Range Comments ESTELLA TITER (test code=ANATITR) Negative () Negative <1:80 Borderline 1:80 Positive >1:80Performed At: [facility] [id number] Augustin MD Ph:[phone] AG HEPATITIS B [id number] 14:08:00* Test Item Value Reference Range Comments AG HEPATITIS B SURFACE (test code=HBSAG) Negative Negative Performed At: [facility] [id number] Augustin MD Ph:[phone] AB HEPATITIS [id number] 14:08:00* Test Item Value Reference Range Comments AB HEPATITIS C (test code=HCVAB) 0.1 0.0-0.9 INFCE Result Units: s/co ratio Negative: < 0.8 Indeterminate: 0.8 - 0.9 Positive: > 0.9 The CDC recommends that a positive HCV antibody result be followed up with a HCV Nucleic Acid Amplification test (838991). NEUTROPHIL CYTOPLASMIC [id number] 14:08:00* Test Item Value Reference Range Comments AB ANTI-NEUTROPHIL CYTO C (test code=NEUTCABC) <1:20 titer Neg:<1:20 AB ANTI-NEUTROPHIL CYTO P (test code=NEUTCAB-P) <1:20 titer Neg:<1:20 The presence of positive fluorescence exhibiting P-ANCA orC-ANCA patterns alone is not specific for the diagnosis ofWegener's Granulomatosis (WG) or microscopic polyangiitis.Decisions about treatment should not be based solely onANCA IFA results. The [employer] ANCA Group Consensusrecommends follow up testing of positive sera with both WI-3 and MPO-ANCA enzyme immunoassays. As many as 5% serumsamples are positive only by EIA. Ref. AM J Clin [id number];111:507-513. ATYPICAL ANCA (test code=ANCACOM) <1:20 titer Neg:<1:20 The atypical pANCA pattern has been observed in asignificant percentage of patients with ulcerative colitis,primary sclerosing cholangitis and autoimmune hepatitis.Performed At: [facility] [id number] Sanjai MD Ph:[phone] AB DNA DOUBLE [id number] 14:08:00* Test Item Value Reference Range Comments AB DNA DOUBLE STRAND (test code=DNADSAB) 1 IU/mL 0-9 Negative <5 Equivocal 5 - 9 Positive >9Performed At: [facility] [address] [id number] Augustin MD Ph:[phone] COMPLEMENT [id number] 14:08:00* Test Item Value Reference Range Comments COMPLEMENT C3 (test code=COMC3) 67 mg/dL 82-167 Performed At: [facility] [address] [id number] Augustin MD Ph:[phone] COMPLEMENT [id number] 14:08:00* Test Item Value Reference Range Comments COMPLEMENT C4 (test code=COMC4) 3 mg/dL 14-44 NEUTROPHIL CYTOPLASMIC [id number] 08:09:00* Test Item Value Reference Range Comments AB ANTI-NEUTROPHIL CYTO C (test code=NEUTCABC) AB ANTI-NEUTROPHIL CYTO P (test code=NEUTCAB-P) ATYPICAL ANCA (test code=ANCACOM) COMPLEMENT [id number] 08:09:00* Test Item Value Reference Range Comments COMPLEMENT C3 (test code=COMC3) COMPLEMENT [id number] 08:09:00* Test Item Value Reference Range Comments COMPLEMENT C4 (test code=COMC4) 4 mg/dL 14-44 NEUTROPHIL CYTOPLASMIC [id number] 08:09:00* Test Item Value Reference Range Comments AB ANTI-NEUTROPHIL CYTO C (test code=NEUTCABC) AB ANTI-NEUTROPHIL CYTO P (test code=NEUTCAB-P) ATYPICAL ANCA (test code=ANCACOM) COMPLEMENT [id number] 08:09:00* Test Item Value Reference Range Comments COMPLEMENT C3 (test code=COMC3) 87 mg/dL 82-167 Performed At: [facility] [id number] Kyle L MD Ph:[phone] COMPLEMENT [id number] 08:09:00* Test Item Value Reference Range Comments COMPLEMENT C4 (test code=COMC4) 4 mg/dL 14-44 GLUCOSE BEDSIDE [id number] 07:26:00* Test Item Value Reference Range Comments GLUCOSE BEDSIDE TESTING (test code=GLUBED) 135 mg/dL 70-110 CBC W/AUTO [id number] 04:42:00* Test Item Value Reference Range Comments WHITE BLOOD CELL (test code=WBC) 13.7 K/mm3 3.5-11.0 RED BLOOD CELL (test code=RBC) 3.35 M/mm3 4.70-6.10 HEMOGLOBIN (test code=HGB) 9.1 G/DL 10.4-14.9 HEMATOCRIT (test code=HCT) 26.0 % 31.5-44.1 MEAN CELL VOLUME (test code=MCV) 77.6 Fl 84.5-98.6 MEAN CELL HGB (test code=MCH) 27.2 pg 27.0-34.2 MEAN CELL HGB CONCETRATION (test code=MCHC) 35.0 G/DL 31.5-34.0 RED CELL DISTRIBUTION WIDTH (test code=RDW) 19.5 SD 11.5-14.5 PLATELET COUNT (test code=PLT) 202.0 K/mm3 150-450 MEAN PLATELET VOLUME (test code=MPV) 10.40 fL 7.0-10.5 MANUAL DIFF REQUIRED (test code=MDIFF) YES DIFF/SCN CRITERIA WBC [id number] 04:42:00* Test Item Value Reference Range Comments SEGMENTED NEUTROPHILS (test code=SEG) % 40-75 LYMPHOCYTE (test code=LYMPH) % 18.7-40.6 CBC W/AUTO [id number] 04:42:00* Test Item Value Reference Range Comments WHITE BLOOD CELL (test code=WBC) 13.7 K/mm3 3.5-11.0 RED BLOOD CELL (test code=RBC) 3.35 M/mm3 4.70-6.10 HEMOGLOBIN (test code=HGB) 9.1 G/DL 10.4-14.9 HEMATOCRIT (test code=HCT) 26.0 % 31.5-44.1 MEAN CELL VOLUME (test code=MCV) 77.6 Fl 84.5-98.6 MEAN CELL HGB (test code=MCH) 27.2 pg 27.0-34.2 MEAN CELL HGB CONCETRATION (test code=MCHC) 35.0 G/DL 31.5-34.0 RED CELL DISTRIBUTION WIDTH (test code=RDW) 19.5 SD 11.5-14.5 PLATELET COUNT (test code=PLT) 202.0 K/mm3 150-450 MEAN PLATELET VOLUME (test code=MPV) 10.40 fL 7.0-10.5 MANUAL DIFF REQUIRED (test code=MDIFF) YES DIFF/SCN CRITERIA WBC [id number] 04:42:00* Test Item Value Reference Range Comments SEGMENTED NEUTROPHILS (test code=SEG) 78 % 40-75 LYMPHOCYTE (test code=LYMPH) 13 % 18.7-40.6 MONOCYTE (test code=MON) 8 % 3.8-11.4 EOSINOPHIL (test code=EOS) 1 % 0.0-4.1 ANISOCYTOSIS (test code=ANISO) 1+ NONE MICROCYTOSIS (test code=MICR) 1+ ON SCAN NONE TARGET CELLS (test code=TGT) 3+ ON SCAN NONE SCHISTOCYTES (test code=CONRAD) 1+ ON SCAN NONE PLATELET ESTIMATE (test code=PLTEST) ADEQUATE THOUSAND ADEQUATE PLATELET MORPHOLOGY (test code=PLTMORPH) NORMAL CBC W/AUTO [id number] 04:42:00* Test Item Value Reference Range Comments WHITE BLOOD CELL (test code=WBC) 13.7 K/mm3 3.5-11.0 RED BLOOD CELL (test code=RBC) 3.35 M/mm3 4.70-6.10 HEMOGLOBIN (test code=HGB) 9.1 G/DL 10.4-14.9 HEMATOCRIT (test code=HCT) 26.0 % 31.5-44.1 MEAN CELL VOLUME (test code=MCV) 77.6 Fl 84.5-98.6 MEAN CELL HGB (test code=MCH) 27.2 pg 27.0-34.2 MEAN CELL HGB CONCETRATION (test code=MCHC) 35.0 G/DL 31.5-34.0 RED CELL DISTRIBUTION WIDTH (test code=RDW) 19.5 SD 11.5-14.5 PLATELET COUNT (test code=PLT) 202.0 K/mm3 150-450 MEAN PLATELET VOLUME (test code=MPV) 10.40 fL 7.0-10.5 MANUAL DIFF REQUIRED (test code=MDIFF) YES DIFF/SCN CRITERIA WBC [id number] 04:42:00* Test Item Value Reference Range Comments SEGMENTED NEUTROPHILS (test code=SEG) % 40-75 LYMPHOCYTE (test code=LYMPH) % 18.7-40.6 COMPREHENSIVE METABOLIC [id number] 04:34:00* Test Item Value Reference Range Comments SODIUM (test code=NA) 137 mmol/L 134-147 POTASSIUM (test code=K) 4.5 mmol/L 3.4-5.0 CHLORIDE (test code=CL) 104 mmol/L 100-108 CARBON DIOXIDE (test code=CO2) 25 mmol/L 21-32 ANION GAP (test code=GAP) 8.0 GAP calc 4.0-15.0 GLUCOSE (test code=GLU) 155 MG/DL 70-110 BLOOD UREA NITROGEN (test code=BUN) 35 MG/DL 7-18 GLOMERULAR FILTRATION RATE (test code=GFR) 19 estGFR >60 CREATININE (test code=CREAT) 3.2 MG/DL 0.6-1.0 TOTAL PROTEIN (test code=PROT) 6.5 G/DL 6.4-8.2 ALBUMIN (test code=ALB) 1.9 G/DL 3.4-5.0 GLOBULIN (test code=GLOB) 4.6 GM/dL ALBUMIN/GLOBULIN RATIO (test code=A/G) 0.4 RATIO 1.2-2.2 CALCIUM (test code=CA) 8.5 MG/DL 8.5-10.1 BILIRUBIN TOTAL (test code=BILT) 2.10 MG/DL 0.2-1.2 SGOT/AST (test code=AST) 992 Unit/L 15-37 SGPT/ALT (test code=ALT) 1114 Unit/L 12-78 ALKALINE PHOSPHATASE TOTAL (test code=ALKP) 304 Unit/L 45-117 CBC W/AUTO [id number] 04:22:00* Test Item Value Reference Range Comments WHITE BLOOD CELL (test code=WBC) 13.7 K/mm3 3.5-11.0 RED BLOOD CELL (test code=RBC) 3.35 M/mm3 4.70-6.10 HEMOGLOBIN (test code=HGB) 9.1 G/DL 10.4-14.9 HEMATOCRIT (test code=HCT) 26.0 % 31.5-44.1 MEAN CELL VOLUME (test code=MCV) 77.6 Fl 84.5-98.6 MEAN CELL HGB (test code=MCH) 27.2 pg 27.0-34.2 MEAN CELL HGB CONCETRATION (test code=MCHC) 35.0 G/DL 31.5-34.0 RED CELL DISTRIBUTION WIDTH (test code=RDW) 19.5 SD 11.5-14.5 PLATELET COUNT (test code=PLT) 202.0 K/mm3 150-450 MEAN PLATELET VOLUME (test code=MPV) 10.40 fL 7.0-10.5 NEUTROPHIL % (test code=NT%) % 40-76 LYMPHOCYTE % (test code=LY%) % 20.5-51.1 MONOCYTE % (test code=MO%) % 1.7-9.3 EOSINOPHIL % (test code=EO%) % 0.0-6.0 BASOPHIL % (test code=BA%) % 0.0-2.0 NEUTROPHIL # (test code=NT#) K/mm3 1.8-7.6 LYMPHOCYTE # (test code=LY#) K/mm3 0.6-3.2 MONOCYTE # (test code=MO#) K/mm3 0.3-1.1 EOSINOPHIL # (test code=EO#) K/mm3 0.0-0.4 BASOPHIL # (test code=BA#) K/mm3 0.0-0.1 MANUAL DIFF REQUIRED (test code=MDIFF) DIFF/SCN CRITERIA CBC W/AUTO [id number] 06:35:00* Test Item Value Reference Range Comments WHITE BLOOD CELL (test code=WBC) 17.8 K/mm3 3.5-11.0 RED BLOOD CELL (test code=RBC) 3.46 M/mm3 4.70-6.10 HEMOGLOBIN (test code=HGB) 9.4 G/DL 10.4-14.9 HEMATOCRIT (test code=HCT) 26.8 % 31.5-44.1 MEAN CELL VOLUME (test code=MCV) 77.5 Fl 84.5-98.6 MEAN CELL HGB (test code=MCH) 27.2 pg 27.0-34.2 MEAN CELL HGB CONCETRATION (test code=MCHC) 35.1 G/DL 31.5-34.0 RED CELL DISTRIBUTION WIDTH (test code=RDW) 19.0 SD 11.5-14.5 PLATELET COUNT (test code=PLT) 190.0 K/mm3 150-450 NEUTROPHIL % (test code=NT%) 72.4 % 40-76 LYMPHOCYTE % (test code=LY%) 14.1 % 20.5-51.1 MONOCYTE % (test code=MO%) 11.1 % 1.7-9.3 EOSINOPHIL % (test code=EO%) 2.2 % 0.0-6.0 BASOPHIL % (test code=BA%) 0.2 % 0.0-2.0 NEUTROPHIL # (test code=NT#) 12.90 K/mm3 1.8-7.6 LYMPHOCYTE # (test code=LY#) 2.5 K/mm3 0.6-3.2 MONOCYTE # (test code=MO#) 2.0 K/mm3 0.3-1.1 EOSINOPHIL # (test code=EO#) 0.4 K/mm3 0.0-0.4 BASOPHIL # (test code=BA#) 0.0 K/mm3 0.0-0.1 MANUAL DIFF REQUIRED (test code=MDIFF) NO DIFF/SCN CRITERIA SLIDE REVIEW CONSISTANT WITH AUTO DIFFERENTIAL. CBC W/AUTO [id number] 06:35:00* Test Item Value Reference Range Comments WHITE BLOOD CELL (test code=WBC) 17.8 K/mm3 3.5-11.0 RED BLOOD CELL (test code=RBC) 3.46 M/mm3 4.70-6.10 HEMOGLOBIN (test code=HGB) 9.4 G/DL 10.4-14.9 HEMATOCRIT (test code=HCT) 26.8 % 31.5-44.1 MEAN CELL VOLUME (test code=MCV) 77.5 Fl 84.5-98.6 MEAN CELL HGB (test code=MCH) 27.2 pg 27.0-34.2 MEAN CELL HGB CONCETRATION (test code=MCHC) 35.1 G/DL 31.5-34.0 RED CELL DISTRIBUTION WIDTH (test code=RDW) 19.0 SD 11.5-14.5 PLATELET COUNT (test code=PLT) 190.0 K/mm3 150-450 NEUTROPHIL % (test code=NT%) 72.4 % 40-76 LYMPHOCYTE % (test code=LY%) 14.1 % 20.5-51.1 MONOCYTE % (test code=MO%) 11.1 % 1.7-9.3 EOSINOPHIL % (test code=EO%) 2.2 % 0.0-6.0 BASOPHIL % (test code=BA%) 0.2 % 0.0-2.0 NEUTROPHIL # (test code=NT#) 12.90 K/mm3 1.8-7.6 LYMPHOCYTE # (test code=LY#) 2.5 K/mm3 0.6-3.2 MONOCYTE # (test code=MO#) 2.0 K/mm3 0.3-1.1 EOSINOPHIL # (test code=EO#) 0.4 K/mm3 0.0-0.4 BASOPHIL # (test code=BA#) 0.0 K/mm3 0.0-0.1 MANUAL DIFF REQUIRED (test code=MDIFF) NO DIFF/SCN CRITERIA SLIDE REVIEW CONSISTANT WITH AUTO DIFFERENTIAL. RBC [id number] 06:35:00* Test Item Value Reference Range Comments PLATELET ESTIMATE (test code=PLTEST) ADEQUATE THOUSAND ADEQUATE PLATELET MORPHOLOGY (test code=PLTMORPH) NORMAL CBC W/AUTO [id number] 06:35:00* Test Item Value Reference Range Comments WHITE BLOOD CELL (test code=WBC) 17.8 K/mm3 3.5-11.0 RED BLOOD CELL (test code=RBC) 3.46 M/mm3 4.70-6.10 HEMOGLOBIN (test code=HGB) 9.4 G/DL 10.4-14.9 HEMATOCRIT (test code=HCT) 26.8 % 31.5-44.1 MEAN CELL VOLUME (test code=MCV) 77.5 Fl 84.5-98.6 MEAN CELL HGB (test code=MCH) 27.2 pg 27.0-34.2 MEAN CELL HGB CONCETRATION (test code=MCHC) 35.1 G/DL 31.5-34.0 RED CELL DISTRIBUTION WIDTH (test code=RDW) 19.0 SD 11.5-14.5 PLATELET COUNT (test code=PLT) 190.0 K/mm3 150-450 NEUTROPHIL % (test code=NT%) 72.4 % 40-76 LYMPHOCYTE % (test code=LY%) 14.1 % 20.5-51.1 MONOCYTE % (test code=MO%) 11.1 % 1.7-9.3 EOSINOPHIL % (test code=EO%) 2.2 % 0.0-6.0 BASOPHIL % (test code=BA%) 0.2 % 0.0-2.0 NEUTROPHIL # (test code=NT#) 12.90 K/mm3 1.8-7.6 LYMPHOCYTE # (test code=LY#) 2.5 K/mm3 0.6-3.2 MONOCYTE # (test code=MO#) 2.0 K/mm3 0.3-1.1 EOSINOPHIL # (test code=EO#) 0.4 K/mm3 0.0-0.4 BASOPHIL # (test code=BA#) 0.0 K/mm3 0.0-0.1 MANUAL DIFF REQUIRED (test code=MDIFF) NO DIFF/SCN CRITERIA SLIDE REVIEW CONSISTANT WITH AUTO DIFFERENTIAL. CBC W/AUTO [id number] 06:04:00* Test Item Value Reference Range Comments WHITE BLOOD CELL (test code=WBC) 17.8 K/mm3 3.5-11.0 RED BLOOD CELL (test code=RBC) 3.46 M/mm3 4.70-6.10 HEMOGLOBIN (test code=HGB) 9.4 G/DL 10.4-14.9 HEMATOCRIT (test code=HCT) 26.8 % 31.5-44.1 MEAN CELL VOLUME (test code=MCV) 77.5 Fl 84.5-98.6 MEAN CELL HGB (test code=MCH) 27.2 pg 27.0-34.2 MEAN CELL HGB CONCETRATION (test code=MCHC) 35.1 G/DL 31.5-34.0 RED CELL DISTRIBUTION WIDTH (test code=RDW) 19.0 SD 11.5-14.5 PLATELET COUNT (test code=PLT) 190.0 K/mm3 150-450 NEUTROPHIL % (test code=NT%) % 40-76 LYMPHOCYTE % (test code=LY%) % 20.5-51.1 MONOCYTE % (test code=MO%) % 1.7-9.3 EOSINOPHIL % (test code=EO%) % 0.0-6.0 BASOPHIL % (test code=BA%) % 0.0-2.0 NEUTROPHIL # (test code=NT#) K/mm3 1.8-7.6 LYMPHOCYTE # (test code=LY#) K/mm3 0.6-3.2 MONOCYTE # (test code=MO#) K/mm3 0.3-1.1 EOSINOPHIL # (test code=EO#) K/mm3 0.0-0.4 BASOPHIL # (test code=BA#) K/mm3 0.0-0.1 MANUAL DIFF REQUIRED (test code=MDIFF) DIFF/SCN CRITERIA BASIC METABOLIC [id number] 05:57:00* Test Item Value Reference Range Comments SODIUM (test code=NA) 136 mmol/L 134-147 POTASSIUM (test code=K) 3.9 mmol/L 3.4-5.0 CHLORIDE (test code=CL) 103 mmol/L 100-108 CARBON DIOXIDE (test code=CO2) 23 mmol/L 21-32 ANION GAP (test code=GAP) 10.0 GAP calc 4.0-15.0 GLUCOSE (test code=GLU) 195 MG/DL 70-110 BLOOD UREA NITROGEN (test code=BUN) 43 MG/DL 7-18 GLOMERULAR FILTRATION RATE (test code=GFR) 15 estGFR >60 CREATININE (test code=CREAT) 4.0 MG/DL 0.6-1.0 CALCIUM (test code=CA) 8.1 MG/DL 8.5-10.1 CBC W/AUTO [id number] 06:15:00* Test Item Value Reference Range Comments WHITE BLOOD CELL (test code=WBC) 16.5 K/mm3 3.5-11.0 RED BLOOD CELL (test code=RBC) 3.75 M/mm3 4.70-6.10 HEMOGLOBIN (test code=HGB) 10.2 G/DL 10.4-14.9 HEMATOCRIT (test code=HCT) 28.5 % 31.5-44.1 MEAN CELL VOLUME (test code=MCV) 76.0 Fl 84.5-98.6 MEAN CELL HGB (test code=MCH) 27.2 pg 27.0-34.2 MEAN CELL HGB CONCETRATION (test code=MCHC) 35.8 G/DL 31.5-34.0 RED CELL DISTRIBUTION WIDTH (test code=RDW) 18.7 SD 11.5-14.5 PLATELET COUNT (test code=PLT) 176.0 K/mm3 150-450 NEUTROPHIL % (test code=NT%) 73.2 % 40-76 LYMPHOCYTE % (test code=LY%) 13.7 % 20.5-51.1 MONOCYTE % (test code=MO%) 10.1 % 1.7-9.3 EOSINOPHIL % (test code=EO%) 2.8 % 0.0-6.0 BASOPHIL % (test code=BA%) 0.2 % 0.0-2.0 NEUTROPHIL # (test code=NT#) 12.05 K/mm3 1.8-7.6 LYMPHOCYTE # (test code=LY#) 2.3 K/mm3 0.6-3.2 MONOCYTE # (test code=MO#) 1.7 K/mm3 0.3-1.1 EOSINOPHIL # (test code=EO#) 0.5 K/mm3 0.0-0.4 BASOPHIL # (test code=BA#) 0.0 K/mm3 0.0-0.1 MANUAL DIFF REQUIRED (test code=MDIFF) NO DIFF/SCN CRITERIA SLIDE REVIEW CONSISTANT WITH AUTO DIFFERENTIAL. RBC [id number] 06:15:00* Test Item Value Reference Range Comments PLATELET ESTIMATE (test code=PLTEST) ADEQUATE THOUSAND ADEQUATE PLATELET MORPHOLOGY (test code=PLTMORPH) NORMAL CBC W/AUTO [id number] 06:14:00* Test Item Value Reference Range Comments WHITE BLOOD CELL (test code=WBC) 16.5 K/mm3 3.5-11.0 RED BLOOD CELL (test code=RBC) 3.75 M/mm3 4.70-6.10 HEMOGLOBIN (test code=HGB) 10.2 G/DL 10.4-14.9 HEMATOCRIT (test code=HCT) 28.5 % 31.5-44.1 MEAN CELL VOLUME (test code=MCV) 76.0 Fl 84.5-98.6 MEAN CELL HGB (test code=MCH) 27.2 pg 27.0-34.2 MEAN CELL HGB CONCETRATION (test code=MCHC) 35.8 G/DL 31.5-34.0 RED CELL DISTRIBUTION WIDTH (test code=RDW) 18.7 SD 11.5-14.5 PLATELET COUNT (test code=PLT) 176.0 K/mm3 150-450 NEUTROPHIL % (test code=NT%) 73.2 % 40-76 LYMPHOCYTE % (test code=LY%) 13.7 % 20.5-51.1 MONOCYTE % (test code=MO%) 10.1 % 1.7-9.3 EOSINOPHIL % (test code=EO%) 2.8 % 0.0-6.0 BASOPHIL % (test code=BA%) 0.2 % 0.0-2.0 NEUTROPHIL # (test code=NT#) 12.05 K/mm3 1.8-7.6 LYMPHOCYTE # (test code=LY#) 2.3 K/mm3 0.6-3.2 MONOCYTE # (test code=MO#) 1.7 K/mm3 0.3-1.1 EOSINOPHIL # (test code=EO#) 0.5 K/mm3 0.0-0.4 BASOPHIL # (test code=BA#) 0.0 K/mm3 0.0-0.1 MANUAL DIFF REQUIRED (test code=MDIFF) NO DIFF/SCN CRITERIA SLIDE REVIEW CONSISTANT WITH AUTO DIFFERENTIAL. CBC W/AUTO [id number] 06:14:00* Test Item Value Reference Range Comments WHITE BLOOD CELL (test code=WBC) 16.5 K/mm3 3.5-11.0 RED BLOOD CELL (test code=RBC) 3.75 M/mm3 4.70-6.10 HEMOGLOBIN (test code=HGB) 10.2 G/DL 10.4-14.9 HEMATOCRIT (test code=HCT) 28.5 % 31.5-44.1 MEAN CELL VOLUME (test code=MCV) 76.0 Fl 84.5-98.6 MEAN CELL HGB (test code=MCH) 27.2 pg 27.0-34.2 MEAN CELL HGB CONCETRATION (test code=MCHC) 35.8 G/DL 31.5-34.0 RED CELL DISTRIBUTION WIDTH (test code=RDW) 18.7 SD 11.5-14.5 PLATELET COUNT (test code=PLT) 176.0 K/mm3 150-450 NEUTROPHIL % (test code=NT%) 73.2 % 40-76 LYMPHOCYTE % (test code=LY%) 13.7 % 20.5-51.1 MONOCYTE % (test code=MO%) 10.1 % 1.7-9.3 EOSINOPHIL % (test code=EO%) 2.8 % 0.0-6.0 BASOPHIL % (test code=BA%) 0.2 % 0.0-2.0 NEUTROPHIL # (test code=NT#) 12.05 K/mm3 1.8-7.6 LYMPHOCYTE # (test code=LY#) 2.3 K/mm3 0.6-3.2 MONOCYTE # (test code=MO#) 1.7 K/mm3 0.3-1.1 EOSINOPHIL # (test code=EO#) 0.5 K/mm3 0.0-0.4 BASOPHIL # (test code=BA#) 0.0 K/mm3 0.0-0.1 MANUAL DIFF REQUIRED (test code=MDIFF) NO DIFF/SCN CRITERIA SLIDE REVIEW CONSISTANT WITH AUTO DIFFERENTIAL. BASIC METABOLIC [id number] 05:42:00* Test Item Value Reference Range Comments SODIUM (test code=NA) 134 mmol/L 134-147 POTASSIUM (test code=K) 4.6 mmol/L 3.4-5.0 CHLORIDE (test code=CL) 100 mmol/L 100-108 CARBON DIOXIDE (test code=CO2) 23 mmol/L 21-32 ANION GAP (test code=GAP) 11.0 GAP calc 4.0-15.0 GLUCOSE (test code=GLU) 143 MG/DL 70-110 BLOOD UREA NITROGEN (test code=BUN) 69 MG/DL 7-18 GLOMERULAR FILTRATION RATE (test code=GFR) 10 estGFR >60 CREATININE (test code=CREAT) 5.6 MG/DL 0.6-1.0 CALCIUM (test code=CA) 8.1 MG/DL 8.5-10.1 [id number] 05:42:00* Test Item Value Reference Range Comments PHOSPHOROUS (test code=PHOS) 5.9 MG/DL 2.5-4.9 [id number] 05:42:00* Test Item Value Reference Range Comments MAGNESIUM (test code=MAG) 2.3 MG/DL 1.8-2.4 CBC W/AUTO [id number] 05:37:00* Test Item Value Reference Range Comments WHITE BLOOD CELL (test code=WBC) 16.5 K/mm3 3.5-11.0 RED BLOOD CELL (test code=RBC) 3.75 M/mm3 4.70-6.10 HEMOGLOBIN (test code=HGB) 10.2 G/DL 10.4-14.9 HEMATOCRIT (test code=HCT) 28.5 % 31.5-44.1 MEAN CELL VOLUME (test code=MCV) 76.0 Fl 84.5-98.6 MEAN CELL HGB (test code=MCH) 27.2 pg 27.0-34.2 MEAN CELL HGB CONCETRATION (test code=MCHC) 35.8 G/DL 31.5-34.0 RED CELL DISTRIBUTION WIDTH (test code=RDW) 18.7 SD 11.5-14.5 PLATELET COUNT (test code=PLT) 176.0 K/mm3 150-450 NEUTROPHIL % (test code=NT%) % 40-76 LYMPHOCYTE % (test code=LY%) % 20.5-51.1 MONOCYTE % (test code=MO%) % 1.7-9.3 EOSINOPHIL % (test code=EO%) % 0.0-6.0 BASOPHIL % (test code=BA%) % 0.0-2.0 NEUTROPHIL # (test code=NT#) K/mm3 1.8-7.6 LYMPHOCYTE # (test code=LY#) K/mm3 0.6-3.2 MONOCYTE # (test code=MO#) K/mm3 0.3-1.1 EOSINOPHIL # (test code=EO#) K/mm3 0.0-0.4 BASOPHIL # (test code=BA#) K/mm3 0.0-0.1 MANUAL DIFF REQUIRED (test code=MDIFF) DIFF/SCN CRITERIA UR SODIUM [id number] 14:08:00* Test Item Value Reference Range Comments UR SODIUM RANDOM (test code=BENI) 27 MEQ/L () The Reference Range and Method Performance specificationshave not been established for this fluid. The test resultshould be correlated into the clinical context forinterpretation. UR POTASSIUM [id number] 14:08:00* Test Item Value Reference Range Comments UR POTASSIUM RANDOM (test code=KU) 67.8 MEQ/L () The Reference Range and Method Performance specificationshave not been established for this fluid. The test resultshould be correlated into the clinical context forinterpretation. UR CHLORIDE [id number] 14:08:00* Test Item Value Reference Range Comments UR CHLORIDE RANDOM (test code=CLU) < 20 mmol/L Not Estab. Performed At: [facility] [address] [id number] Augustin MD Ph:[phone] UR PROTEIN [id number] 14:08:00* Test Item Value Reference Range Comments UR PROTEIN TOTAL (test code=PROTU) 321.6 MG/DL 0.0-12.0 UR CREATININE [id number] 14:08:00* Test Item Value Reference Range Comments UR CREATININE RANDOM (test code=CREATU) 195.0 MG/DL 30-125 UR OSMOLALITY [id number] 14:08:00* Test Item Value Reference Range Comments UR OSMOLALITY RANDOM (test code=OSMOU) 323 () INFCE Result Units: mOsmol/kg 24 hr : 300 - 900 Random: 50 - 1400 After 12hr fluid restriction: >850Performed At: [facility] [address] [id number] Augustin MD Ph:[phone] UR SODIUM [id number] 12:08:00* Test Item Value Reference Range Comments UR SODIUM RANDOM (test code=BENI) 27 MEQ/L () The Reference Range and Method Performance specificationshave not been established for this fluid. The test resultshould be correlated into the clinical context forinterpretation. UR POTASSIUM [id number] 12:08:00* Test Item Value Reference Range Comments UR POTASSIUM RANDOM (test code=KU) 67.8 MEQ/L () The Reference Range and Method Performance specificationshave not been established for this fluid. The test resultshould be correlated into the clinical context forinterpretation. UR CHLORIDE [id number] 12:08:00* Test Item Value Reference Range Comments UR CHLORIDE RANDOM (test code=CLU) mmol/L >10 UR PROTEIN [id number] 12:08:00* Test Item Value Reference Range Comments UR PROTEIN TOTAL (test code=PROTU) 321.6 MG/DL 0.0-12.0 UR CREATININE [id number] 12:08:00* Test Item Value Reference Range Comments UR CREATININE RANDOM (test code=CREATU) 195.0 MG/DL 30-125 UR OSMOLALITY [id number] 12:08:00* Test Item Value Reference Range Comments UR OSMOLALITY RANDOM (test code=OSMOU) 323 () INFCE Result Units: mOsmol/kg 24 hr : 300 - 900 Random: 50 - 1400 After 12hr fluid restriction: >850Performed At: [facility] [address] [id number] Augustin MD Ph:[phone] ANTINUCLEAR ANTIBODIES [id number] 10:08:00* Test Item Value Reference Range Comments ESTELLA TITER (test code=ANATITR) Negative () Negative <1:80 Borderline 1:80 Positive >1:80Performed At: [facility] [id number] Augustin MD Ph:[phone] AG HEPATITIS B [id number] 10:08:00* Test Item Value Reference Range Comments AG HEPATITIS B SURFACE (test code=HBSAG) Negative Negative Performed At: [address] [id number] Augustin MD Ph:[phone] AB HEPATITIS [id number] 10:08:00* Test Item Value Reference Range Comments AB HEPATITIS C (test code=HCVAB) 0.1 0.0-0.9 INFCE Result Units: s/co ratio Negative: < 0.8 Indeterminate: 0.8 - 0.9 Positive: > 0.9 The CDC recommends that a positive HCV antibody result be followed up with a HCV Nucleic Acid Amplification test (468876). NEUTROPHIL CYTOPLASMIC [id number] 10:08:00* Test Item Value Reference Range Comments AB ANTI-NEUTROPHIL CYTO C (test code=NEUTCABC) AB ANTI-NEUTROPHIL CYTO P (test code=NEUTCAB-P) ATYPICAL ANCA (test code=ANCACOM) AB DNA DOUBLE [id number] 10:08:00* Test Item Value Reference Range Comments AB DNA DOUBLE STRAND (test code=DNADSAB) 1 IU/mL 0-9 Negative <5 Equivocal 5 - 9 Positive >9Performed At: [address] [id number] Augustin MD Ph:[phone] COMPLEMENT [id number] 10:08:00* Test Item Value Reference Range Comments COMPLEMENT C3 (test code=COMC3) 67 mg/dL 82-167 Performed At: [address] [id number] Augustin MD Ph:[phone] COMPLEMENT [id number] 10:08:00* Test Item Value Reference Range Comments COMPLEMENT C4 (test code=COMC4) 3 mg/dL 14-44 ANTINUCLEAR ANTIBODIES [id number] 09:09:00* Test Item Value Reference Range Comments ESTELLA TITER (test code=ANATITR) AG HEPATITIS B [id number] 09:09:00* Test Item Value Reference Range Comments AG HEPATITIS B SURFACE (test code=HBSAG) Negative Negative Performed At: [address] [id number] Augustin MD Ph:[phone] AB HEPATITIS [id number] 09:09:00* Test Item Value Reference Range Comments AB HEPATITIS C (test code=HCVAB) 0.1 0.0-0.9 INFCE Result Units: s/co ratio Negative: < 0.8 Indeterminate: 0.8 - 0.9 Positive: > 0.9 The CDC recommends that a positive HCV antibody result be followed up with a HCV Nucleic Acid Amplification test (779475). NEUTROPHIL CYTOPLASMIC [id number] 09:09:00* Test Item Value Reference Range Comments AB ANTI-NEUTROPHIL CYTO C (test code=NEUTCABC) AB ANTI-NEUTROPHIL CYTO P (test code=NEUTCAB-P) ATYPICAL ANCA (test code=ANCACOM) AB DNA DOUBLE [id number] 09:09:00* Test Item Value Reference Range Comments AB DNA DOUBLE STRAND (test code=DNADSAB) 1 IU/mL 0-9 Negative <5 Equivocal 5 - 9 Positive >9Performed At: [address] [id number] Augustin MD Ph:[phone] COMPLEMENT [id number] 09:09:00* Test Item Value Reference Range Comments COMPLEMENT C3 (test code=COMC3) 67 mg/dL 82-167 Performed At: [facility] [id number] Augustin MD Ph:[phone] COMPLEMENT [id number] 09:09:00* Test Item Value Reference Range Comments COMPLEMENT C4 (test code=COMC4) 3 mg/dL 14-44 ANTINUCLEAR ANTIBODIES [id number] 06:08:00* Test Item Value Reference Range Comments ESTELLA TITER (test code=ANATITR) AG HEPATITIS B [id number] 06:08:00* Test Item Value Reference Range Comments AG HEPATITIS B SURFACE (test code=HBSAG) Negative Negative Performed At: [address] [id number] Kyle L MD Ph:[phone] AB HEPATITIS [id number] 06:08:00* Test Item Value Reference Range Comments AB HEPATITIS C (test code=HCVAB) 0.1 0.0-0.9 INFCE Result Units: s/co ratio Negative: < 0.8 Indeterminate: 0.8 - 0.9 Positive: > 0.9 The CDC recommends that a positive HCV antibody result be followed up with a HCV Nucleic Acid Amplification test (506994). NEUTROPHIL CYTOPLASMIC [id number] 06:08:00* Test Item Value Reference Range Comments AB ANTI-NEUTROPHIL CYTO C (test code=NEUTCABC) AB ANTI-NEUTROPHIL CYTO P (test code=NEUTCAB-P) ATYPICAL ANCA (test code=ANCACOM) AB DNA DOUBLE [id number] 06:08:00* Test Item Value Reference Range Comments AB DNA DOUBLE STRAND (test code=DNADSAB) COMPLEMENT [id number] 06:08:00* Test Item Value Reference Range Comments COMPLEMENT C3 (test code=COMC3) COMPLEMENT [id number] 06:08:00* Test Item Value Reference Range Comments COMPLEMENT C4 (test code=COMC4) 3 mg/dL 14-44 ANTINUCLEAR ANTIBODIES [id number] 06:08:00* Test Item Value Reference Range Comments ESTELLA TITER (test code=ANATITR) AG HEPATITIS B [id number] 06:08:00* Test Item Value Reference Range Comments AG HEPATITIS B SURFACE (test code=HBSAG) Negative Negative Performed At: [facility] [address] [id number] Kyle L MD Ph:[phone] AB HEPATITIS [id number] 06:08:00* Test Item Value Reference Range Comments AB HEPATITIS C (test code=HCVAB) 0.1 0.0-0.9 INFCE Result Units: s/co ratio Negative: < 0.8 Indeterminate: 0.8 - 0.9 Positive: > 0.9 The CDC recommends that a positive HCV antibody result be followed up with a HCV Nucleic Acid Amplification test (376396). NEUTROPHIL CYTOPLASMIC [id number] 06:08:00* Test Item Value Reference Range Comments AB ANTI-NEUTROPHIL CYTO C (test code=NEUTCABC) AB ANTI-NEUTROPHIL CYTO P (test code=NEUTCAB-P) ATYPICAL ANCA (test code=ANCACOM) AB DNA DOUBLE [id number] 06:08:00* Test Item Value Reference Range Comments AB DNA DOUBLE STRAND (test code=DNADSAB) COMPLEMENT [id number] 06:08:00* Test Item Value Reference Range Comments COMPLEMENT C3 (test code=COMC3) 67 mg/dL 82-167 Performed At: [facility] [address] [id number] Augustin MD Ph:[phone] COMPLEMENT [id number] 06:08:00* Test Item Value Reference Range Comments COMPLEMENT C4 (test code=COMC4) 3 mg/dL 14-44 CBC W/AUTO [id number] 05:55:00* Test Item Value Reference Range Comments WHITE BLOOD CELL (test code=WBC) 17.6 K/mm3 3.5-11.0 RED BLOOD CELL (test code=RBC) 3.87 M/mm3 4.70-6.10 HEMOGLOBIN (test code=HGB) 10.5 G/DL 10.4-14.9 HEMATOCRIT (test code=HCT) 29.3 % 31.5-44.1 MEAN CELL VOLUME (test code=MCV) 75.7 Fl 84.5-98.6 MEAN CELL HGB (test code=MCH) 27.1 pg 27.0-34.2 MEAN CELL HGB CONCETRATION (test code=MCHC) 35.8 G/DL 31.5-34.0 RED CELL DISTRIBUTION WIDTH (test code=RDW) 18.6 SD 11.5-14.5 PLATELET COUNT (test code=PLT) 179.0 K/mm3 150-450 NEUTROPHIL % (test code=NT%) 73.8 % 40-76 LYMPHOCYTE % (test code=LY%) 13.5 % 20.5-51.1 MONOCYTE % (test code=MO%) 10.6 % 1.7-9.3 EOSINOPHIL % (test code=EO%) 1.8 % 0.0-6.0 BASOPHIL % (test code=BA%) 0.3 % 0.0-2.0 NEUTROPHIL # (test code=NT#) 12.99 K/mm3 1.8-7.6 LYMPHOCYTE # (test code=LY#) 2.4 K/mm3 0.6-3.2 MONOCYTE # (test code=MO#) 1.9 K/mm3 0.3-1.1 EOSINOPHIL # (test code=EO#) 0.3 K/mm3 0.0-0.4 BASOPHIL # (test code=BA#) 0.1 K/mm3 0.0-0.1 MANUAL DIFF REQUIRED (test code=MDIFF) NO DIFF/SCN CRITERIA SLIDE REVIEW CONSISTANT WITH AUTO DIFFERENTIAL. BASIC METABOLIC [id number] 05:47:00* Test Item Value Reference Range Comments SODIUM (test code=NA) 135 mmol/L 134-147 POTASSIUM (test code=K) 4.3 mmol/L 3.4-5.0 CHLORIDE (test code=CL) 101 mmol/L 100-108 CARBON DIOXIDE (test code=CO2) 23 mmol/L 21-32 ANION GAP (test code=GAP) 11.0 GAP calc 4.0-15.0 GLUCOSE (test code=GLU) 181 MG/DL 70-110 BLOOD UREA NITROGEN (test code=BUN) 51 MG/DL 7-18 GLOMERULAR FILTRATION RATE (test code=GFR) 13 estGFR >60 CREATININE (test code=CREAT) 4.6 MG/DL 0.6-1.0 CALCIUM (test code=CA) 8.0 MG/DL 8.5-10.1 CBC W/AUTO [id number] 05:38:00* Test Item Value Reference Range Comments WHITE BLOOD CELL (test code=WBC) 17.6 K/mm3 3.5-11.0 RED BLOOD CELL (test code=RBC) 3.87 M/mm3 4.70-6.10 HEMOGLOBIN (test code=HGB) 10.5 G/DL 10.4-14.9 HEMATOCRIT (test code=HCT) 29.3 % 31.5-44.1 MEAN CELL VOLUME (test code=MCV) 75.7 Fl 84.5-98.6 MEAN CELL HGB (test code=MCH) 27.1 pg 27.0-34.2 MEAN CELL HGB CONCETRATION (test code=MCHC) 35.8 G/DL 31.5-34.0 RED CELL DISTRIBUTION WIDTH (test code=RDW) 18.6 SD 11.5-14.5 PLATELET COUNT (test code=PLT) 179.0 K/mm3 150-450 NEUTROPHIL % (test code=NT%) % 40-76 LYMPHOCYTE % (test code=LY%) % 20.5-51.1 MONOCYTE % (test code=MO%) % 1.7-9.3 EOSINOPHIL % (test code=EO%) % 0.0-6.0 BASOPHIL % (test code=BA%) % 0.0-2.0 NEUTROPHIL # (test code=NT#) K/mm3 1.8-7.6 LYMPHOCYTE # (test code=LY#) K/mm3 0.6-3.2 MONOCYTE # (test code=MO#) K/mm3 0.3-1.1 EOSINOPHIL # (test code=EO#) K/mm3 0.0-0.4 BASOPHIL # (test code=BA#) K/mm3 0.0-0.1 MANUAL DIFF REQUIRED (test code=MDIFF) DIFF/SCN CRITERIA ANTINUCLEAR ANTIBODIES [id number] 04:07:00* Test Item Value Reference Range Comments ESTELLA TITER (test code=ANATITR) AG HEPATITIS B [id number] 04:07:00* Test Item Value Reference Range Comments AG HEPATITIS B SURFACE (test code=HBSAG) SCREEN NEGATIVE AB HEPATITIS [id number] 04:07:00* Test Item Value Reference Range Comments AB HEPATITIS C (test code=HCVAB) 0.1 0.0-0.9 INFCE Result Units: s/co ratio Negative: < 0.8 Indeterminate: 0.8 - 0.9 Positive: > 0.9 The CDC recommends that a positive HCV antibody result be followed up with a HCV Nucleic Acid Amplification test (794813). NEUTROPHIL CYTOPLASMIC [id number] 04:07:00* Test Item Value Reference Range Comments AB ANTI-NEUTROPHIL CYTO C (test code=NEUTCABC) AB ANTI-NEUTROPHIL CYTO P (test code=NEUTCAB-P) ATYPICAL ANCA (test code=ANCACOM) AB DNA DOUBLE [id number] 04:07:00* Test Item Value Reference Range Comments AB DNA DOUBLE STRAND (test code=DNADSAB) COMPLEMENT [id number] 04:07:00* Test Item Value Reference Range Comments COMPLEMENT C3 (test code=COMC3) COMPLEMENT [id number] 04:07:00* Test Item Value Reference Range Comments COMPLEMENT C4 (test code=COMC4) ANTINUCLEAR ANTIBODIES [id number] 04:07:00* Test Item Value Reference Range Comments ESTELLA TITER (test code=ANATITR) AG HEPATITIS B [id number] 04:07:00* Test Item Value Reference Range Comments AG HEPATITIS B SURFACE (test code=HBSAG) Negative Negative Performed At: [facility] [id number] Kyle L MD Ph:[phone] AB HEPATITIS [id number] 04:07:00* Test Item Value Reference Range Comments AB HEPATITIS C (test code=HCVAB) 0.1 0.0-0.9 INFCE Result Units: s/co ratio Negative: < 0.8 Indeterminate: 0.8 - 0.9 Positive: > 0.9 The CDC recommends that a positive HCV antibody result be followed up with a HCV Nucleic Acid Amplification test (158386). NEUTROPHIL CYTOPLASMIC [id number] 04:07:00* Test Item Value Reference Range Comments AB ANTI-NEUTROPHIL CYTO C (test code=NEUTCABC) AB ANTI-NEUTROPHIL CYTO P (test code=NEUTCAB-P) ATYPICAL ANCA (test code=ANCACOM) AB DNA DOUBLE [id number] 04:07:00* Test Item Value Reference Range Comments AB DNA DOUBLE STRAND (test code=DNADSAB) COMPLEMENT [id number] 04:07:00* Test Item Value Reference Range Comments COMPLEMENT C3 (test code=COMC3) COMPLEMENT [id number] 04:07:00* Test Item Value Reference Range Comments COMPLEMENT C4 (test code=COMC4) UR SODIUM [id number] 20:27:00* Test Item Value Reference Range Comments UR SODIUM RANDOM (test code=BENI) 27 MEQ/L The Reference Range and Method Performance specificationshave not been established for this fluid. The test resultshould be correlated into the clinical context forinterpretation. UR POTASSIUM [id number] 20:27:00* Test Item Value Reference Range Comments UR POTASSIUM RANDOM (test code=KU) 67.8 MEQ/L The Reference Range and Method Performance specificationshave not been established for this fluid. The test resultshould be correlated into the clinical context forinterpretation. UR SODIUM [id number] 20:27:00* Test Item Value Reference Range Comments UR SODIUM RANDOM (test code=BENI) 27 MEQ/L () The Reference Range and Method Performance specificationshave not been established for this fluid. The test resultshould be correlated into the clinical context forinterpretation. UR POTASSIUM [id number] 20:27:00* Test Item Value Reference Range Comments UR POTASSIUM RANDOM (test code=KU) 67.8 MEQ/L () The Reference Range and Method Performance specificationshave not been established for this fluid. The test resultshould be correlated into the clinical context forinterpretation. UR CHLORIDE [id number] 20:27:00* Test Item Value Reference Range Comments UR CHLORIDE RANDOM (test code=CLU) mmol/L >10 UR PROTEIN [id number] 20:27:00* Test Item Value Reference Range Comments UR PROTEIN TOTAL (test code=PROTU) 321.6 MG/DL 0.0-12.0 UR CREATININE [id number] 20:27:00* Test Item Value Reference Range Comments UR CREATININE RANDOM (test code=CREATU) 195.0 MG/DL 30-125 UR OSMOLALITY [id number] 20:27:00* Test Item Value Reference Range Comments UR OSMOLALITY RANDOM (test code=OSMOU) mOsm/KG - XR CHEST 1 [id number] 12:17:00 Name: KATY ESTES [facility] : 1960 Age/S: 59 / F [address] [facility] Unit #: [id number] Loc: [place] [id number] Phys: Rachel Henley MD Acct: [id number] Dis Date: Status: ADM IN PHONE #: [phone] Exam Date: 06/11/2019 1125 FAX #: Reason: VOMITING ON BIPAP EXAMS: CPT: [id number] XR CHEST 1 V 16124 Fluoro Time: DAP (Gy m2): Air Kerma (mGy): Site ID: [id number] EXAMINATION: - XR CHEST 1 V. HISTORY: VOMITING ON BIPAP. COMPARISON: June 09, 2019. Findings: There are mild bibasilar infiltrates improved on the left and slightly worse on the right side.. The heart size is normal. There is no effusion or pneumothorax. The mediastinum and tamiko appear unremarkable. Impression: Mild bibasilar infiltrates. at 1217 Reported and signed by: Sanchez Rodriges MD CC: Rachel Henley MD; Jama Osorio MD PAGE 1 Signed Report Name: KATY ESTES [place] : 1960 Age/S: 59 / F [address] [place] Unit #: [id number] Loc: [place] [address] Phys: Rachel Henley MD Acct: [id number] Dis Date: Status: ADM IN PHONE #: [phone] Exam Date: 06/11/2019 112 FAX #: Reason: VOMITING ON BIPAP EXAMS: CPT: [id number] XR CHEST 1 V 94192 Fluoro Time: DAP (Gy m2): Air Kerma (mGy): <Continued> Technologist: Deidre Velez, RT(R) Trnscb Date/Time: 06/11/2019 (1217) tOTTO Orig Print D/T: S: 06/11/2019 (2319) PAGE 2 Signed Report AB HEPATITIS B [id number] 07:10:00* Test Item Value Reference Range Comments AB HEPATITIS B SURFACE (test code=HBSAB) <3.1 mIU/mL Immunity>9.9 Status of Immunity Anti-HBs Level Inconsistent with Immunity 0.0 - 9.9Consistent with Immunity >9.9Performed At: [facility] [address] [id number] Lucio Augustin MD Ph:[phone] BASIC METABOLIC [id number] 06:26:00* Test Item Value Reference Range Comments SODIUM (test code=NA) 135 mmol/L 134-147 POTASSIUM (test code=K) 5.1 mmol/L 3.4-5.0 CHLORIDE (test code=CL) 104 mmol/L 100-108 CARBON DIOXIDE (test code=CO2) 21 mmol/L 21-32 ANION GAP (test code=GAP) 10.0 GAP calc 4.0-15.0 GLUCOSE (test code=GLU) 143 MG/DL 70-110 BLOOD UREA NITROGEN (test code=BUN) 75 MG/DL 7-18 GLOMERULAR FILTRATION RATE (test code=GFR) 9 estGFR >60 CREATININE (test code=CREAT) 6.1 MG/DL 0.6-1.0 CALCIUM (test code=CA) 8.3 MG/DL 8.5-10.1 CBC W/AUTO [id number] 06:23:00* Test Item Value Reference Range Comments WHITE BLOOD CELL (test code=WBC) 15.8 K/mm3 3.5-11.0 RED BLOOD CELL (test code=RBC) 4.18 M/mm3 4.70-6.10 HEMOGLOBIN (test code=HGB) 11.4 G/DL 10.4-14.9 HEMATOCRIT (test code=HCT) 31.1 % 31.5-44.1 MEAN CELL VOLUME (test code=MCV) 74.4 Fl 84.5-98.6 MEAN CELL HGB (test code=MCH) 27.3 pg 27.0-34.2 MEAN CELL HGB CONCETRATION (test code=MCHC) 36.7 G/DL 31.5-34.0 RED CELL DISTRIBUTION WIDTH (test code=RDW) 18.6 SD 11.5-14.5 PLATELET COUNT (test code=PLT) 148.0 K/mm3 150-450 NEUTROPHIL % (test code=NT%) 68.7 % 40-76 LYMPHOCYTE % (test code=LY%) 16.0 % 20.5-51.1 MONOCYTE % (test code=MO%) 13.4 % 1.7-9.3 EOSINOPHIL % (test code=EO%) 1.7 % 0.0-6.0 BASOPHIL % (test code=BA%) 0.2 % 0.0-2.0 NEUTROPHIL # (test code=NT#) 10.88 K/mm3 1.8-7.6 LYMPHOCYTE # (test code=LY#) 2.5 K/mm3 0.6-3.2 MONOCYTE # (test code=MO#) 2.1 K/mm3 0.3-1.1 EOSINOPHIL # (test code=EO#) 0.3 K/mm3 0.0-0.4 BASOPHIL # (test code=BA#) 0.0 K/mm3 0.0-0.1 MANUAL DIFF REQUIRED (test code=MDIFF) NO DIFF/SCN CRITERIA SLIDE REVIEW CONSISTANT WITH AUTO DIFFERENTIAL.PLATELET COUNT REVIEWED AND VERIFIED. CBC W/AUTO [id number] 06:12:00* Test Item Value Reference Range Comments WHITE BLOOD CELL (test code=WBC) 15.8 K/mm3 3.5-11.0 RED BLOOD CELL (test code=RBC) 4.18 M/mm3 4.70-6.10 HEMOGLOBIN (test code=HGB) 11.4 G/DL 10.4-14.9 HEMATOCRIT (test code=HCT) 31.1 % 31.5-44.1 MEAN CELL VOLUME (test code=MCV) 74.4 Fl 84.5-98.6 MEAN CELL HGB (test code=MCH) 27.3 pg 27.0-34.2 MEAN CELL HGB CONCETRATION (test code=MCHC) 36.7 G/DL 31.5-34.0 RED CELL DISTRIBUTION WIDTH (test code=RDW) 18.6 SD 11.5-14.5 PLATELET COUNT (test code=PLT) 148.0 K/mm3 150-450 NEUTROPHIL % (test code=NT%) % 40-76 LYMPHOCYTE % (test code=LY%) % 20.5-51.1 MONOCYTE % (test code=MO%) % 1.7-9.3 EOSINOPHIL % (test code=EO%) % 0.0-6.0 BASOPHIL % (test code=BA%) % 0.0-2.0 NEUTROPHIL # (test code=NT#) K/mm3 1.8-7.6 LYMPHOCYTE # (test code=LY#) K/mm3 0.6-3.2 MONOCYTE # (test code=MO#) K/mm3 0.3-1.1 EOSINOPHIL # (test code=EO#) K/mm3 0.0-0.4 BASOPHIL # (test code=BA#) K/mm3 0.0-0.1 MANUAL DIFF REQUIRED (test code=MDIFF) DIFF/SCN CRITERIA PARATHYROID HORMONE [id number] 19:20:00* Test Item Value Reference Range Comments PARATHYROID HORMONE INTACT (test code=PARAI) 458 PG/ML 26-72 UR SODIUM [id number] 18:26:00* Test Item Value Reference Range Comments UR SODIUM RANDOM (test code=BENI) MEQ/L UR POTASSIUM [id number] 18:26:00* Test Item Value Reference Range Comments UR POTASSIUM RANDOM (test code=KU) mmol/L >0 UR CHLORIDE [id number] 18:26:00* Test Item Value Reference Range Comments UR CHLORIDE RANDOM (test code=CLU) mmol/L >10 UR PROTEIN [id number] 18:26:00* Test Item Value Reference Range Comments UR PROTEIN TOTAL (test code=PROTU) 321.6 MG/DL 0.0-12.0 UR CREATININE [id number] 18:26:00* Test Item Value Reference Range Comments UR CREATININE RANDOM (test code=CREATU) 195.0 MG/DL 30-125 UR OSMOLALITY [id number] 18:26:00* Test Item Value Reference Range Comments UR OSMOLALITY RANDOM (test code=OSMOU) mOsm/KG - CT HEAD/BRAIN W/O [id number] 18:16:00 Name: KATY ESTES [facility] : 1960 Age/S: 59 / F [address] [place] Unit #: [id number] Loc: [place] [address] Phys: Jama Osorio MD Acct: [id number] Dis Date: Status: ADM IN PHONE #: [phone] Exam Date: 06/10/2019 8225 FAX #: Reason: AMS EXAMS: CPT: [id number] CT HEAD/BRAIN W/O CONT 09036 Examination: Head CT without contrast Location code: H60 Comparison: None Technique: Axial contiguous images through the brain were obtained without contrast media. All CT scans are performed using radiation dose reduction technique. Technical factors are evaluated and adjusted to insure appropriate moderation of exposure. Automated dose management technology is applied to adjust the radiation dose to minimize exposure while achieving a diagnostic quality image. Discussion: Clinical history is remarkable for change in mental status. There is no evidence of hydrocephalus, midline shift, extra-axial fluid collection, hemorrhage, acute infarction, or space-occupying mass lesion. The monzon-white matter differentiation is preserved. Chronic periventr icular small vessel ischemic changes identified. Old small lacunar infarc t is identified in the left basal ganglia. The calvarium and the p aranasal sinuses are within normal limits. Impression: 1. Chronic periventricular small vessel ischemic changes. 2. Small lacunar infarct involving the left basal ganglia. Electronical ly Signed by Saima Crandall on 06/10/2019 at 1816 Repor adelaida and signed by: Jerardo Crandall M.D. CC: Jama Osorio MD Technologist:Kevin Gaspar, RT(R)(CT); Stan CTDI: DLP: Trnscb Date/Time: 06/10/2019 (1815) [email or web address] Orig Print D/T: S: 06/10/2019 (1818) PAGE 1 Signed Report LACTIC [id number] 17:57:00* Test Item Value Reference Range Comments LACTIC ACID (test code=LACT) 1.8 mmol/L 0.4-2.0 [id number] 17:57:00* Test Item Value Reference Range Comments PHOSPHOROUS (test code=PHOS) 5.8 MG/DL 2.5-4.9 - US RETROPERITONEAL [id number] 16:56:00 Name: KATY ESTES [place] : 1960 Age/S: 59 / F [address] [place] Unit #: [id number] Loc: [place] [address] Phys: oJse Santoyo MD Acct: [id number] Dis Date: Status: ADM IN PHONE #: [phone] Exam Date: 06/10/2019 1631 FAX #: Reason: Luis on CKD EXAMS: CPT: [id number] US RETROPERITONEAL COM [id number] Site ID: [id number] EXAMINATION: - US RETROPERITONEAL COM. HISTORY: Luis on CKD COMPARISON: None. TECHNIQUE: Routine renal ultrasound was performed. FINDINGS: The right kidney measures 8 cm, and the left kidney measures 8.9 cm in length. Cortical echogenicity and thi ckness are within normal limits. No hydronephrosis. Simple cysts are seen up to 2.2 cm in the lower pole of the right kidney and 0.9 cm in the left kidney. The urinary bladder is decompressed with a Fischer's cathet er. IMPRESSION: No hydronephrosis. E lectronically Signed by Sanchez Rodriges MD on 06/10/2019 at 1656 Reported and signed by: Sanchez Rodriges MD CC: Jose Kelley MD; Jama Osorio MD Technologist: Keyla Albarran Trntxb Date/Time: 06/10/2019 (1656) Jose PAGE 1 Signed Report Name: KATY ESTES [place] : 1960 Age/S: 59 / F [id number] [address] [place] Unit #: [id number] Loc: [place] [address] Phys: Jose Santoyo MD Acct: [id number] Dis Date: Status: ADM IN PHONE #: [phone] Exam Date: 06/10/2019 1631 FAX #: Reason: Luis on CKD EXAMS: CPT: [id number] US RETROPERITONEAL [facility] [id number] <Continued> Orig Print D/T: S: 06/10/2019 (3420) Probe: PAGE 2 Signed Report BASIC METABOLIC [id number] 15:45:00* Test Item Value Reference Range Comments SODIUM (test code=NA) 136 mmol/L 134-147 POTASSIUM (test code=K) 4.6 mmol/L 3.4-5.0 CHLORIDE (test code=CL) 105 mmol/L 100-108 CARBON DIOXIDE (test code=CO2) 21 mmol/L 21-32 ANION GAP (test code=GAP) 10.0 GAP calc 4.0-15.0 GLUCOSE (test code=GLU) 155 MG/DL 70-110 BLOOD UREA NITROGEN (test code=BUN) 62 MG/DL 7-18 GLOMERULAR FILTRATION RATE (test code=GFR) 12 estGFR >60 CREATININE (test code=CREAT) 4.8 MG/DL 0.6-1.0 CALCIUM (test code=CA) 8.0 MG/DL 8.5-10.1 RESPIRATORY VIRUS PANEL [id number] 11:14:00* Test Item Value Reference Range Comments RSV A PCR (test code=RSV A) Negative Negative RSV B PCR (test code=RSV B) Negative Negative INFLUENZA A (test code=FLUAPCR) Negative Negative INFLUENZA A SUBTYPE H1 (test code=FLUAH1) Negative Negative INFLUENZA A SUBTYPE H3 (test code=FLUAH3) Negative Negative INFLUENZA B (test code=FLUBPCR) Negative Negative PARAINFLUENZA TYPE 1 PCR (test code=PIF1) Negative Negative PARAINFLUENZA TYPE 2 PCR (test code=PIF2) Negative Negative PARAINFLUENZA TYPE 3 PCR (test code=PIF3) Negative Negative PARAINFLUENZA TYPE 4 PCR (test code=PIF4) Negative Negative RHINOVIRUS PCR (test code=RHINO) Negative Negative METAPNEUMOVIRUS PCR (test code=METAPNEU) Negative Negative ADENOVIRUS PCR (test code=ADENOPCR) Negative Negative BORDETELLA PERTUSSIS DNA PCR (test code=BORDPERDNA) Negative Negative B PARAPERTUSSIS BY PCR (test code=BPARAPCR) Negative Negative BORDETELLA HOLMESII (test code=BORDHOLM) Negative Negative Testing was performed using nucleic acid amplificationincluding Bordetella parapertussis/brochiseptica, Bordetella holmesii, and Bordetella pertussis. RVP RESULT COMMENT (test code=RVPCOMM) RVP Comment Comment Testing was performed using nucleic acid amplificationincluding influenza A, influenza A H1, influenza A H3,influenza B, RSV-A, RSV-B, Adenovirus, HumanMetapneumovirus, Parainfluenza 1,2,3 and 4, Rhinovirus, Bordetella parapertussis/brochiseptica, Bordetella holmesii, and Bordetella pertussis. RESPIRATORY VIRUS PANEL [id number] 11:14:00* Test Item Value Reference Range Comments RSV A PCR (test code=RSV A) Negative Negative RSV B PCR (test code=RSV B) Negative Negative INFLUENZA A PCR (test code=FLUAPCR) Negative Negative INFLUENZA B PCR (test code=FLUBPCR) Negative Negative PARAINFLUENZA TYPE 1 PCR (test code=PIF1) Negative Negative PARAINFLUENZA TYPE 2 PCR (test code=PIF2) Negative Negative PARAINFLUENZA TYPE 3 PCR (test code=PIF3) Negative Negative PARAINFLUENZA TYPE 4 PCR (test code=PIF4) Negative Negative RHINOVIRUS PCR (test code=RHINO) Negative Negative METAPNEUMOVIRUS PCR (test code=METAPNEU) Negative Negative ADENOVIRUS PCR (test code=ADENOPCR) Negative Negative BORDETELLA PERTUSSIS DNA PCR (test code=BORDPERDNA) Negative Negative B PARAPERTUSSIS BY PCR (test code=BPARAPCR) Negative Negative AG HEPATITIS B [id number] 06:08:00* Test Item Value Reference Range Comments AG HEPATITIS B SURFACE (test code=HBSAG) Negative Negative AB HEPATITIS B [id number] 06:08:00* Test Item Value Reference Range Comments AB HEPATITIS B CORE (test code=HBCAB) AG HEPATITIS B [id number] 06:08:00* Test Item Value Reference Range Comments AG HEPATITIS B SURFACE (test code=HBSAG) Negative Negative AB HEPATITIS B [id number] 06:08:00* Test Item Value Reference Range Comments AB HEPATITIS B CORE (test code=HBCAB) Negative Negative Performed At: [facility] [address] [id number] Kyle L MD Ph:[phone] CBC W/AUTO [id number] 06:06:00* Test Item Value Reference Range Comments WHITE BLOOD CELL (test code=WBC) 13.3 K/mm3 3.5-11.0 RED BLOOD CELL (test code=RBC) 4.05 M/mm3 4.70-6.10 HEMOGLOBIN (test code=HGB) 10.9 G/DL 10.4-14.9 HEMATOCRIT (test code=HCT) 29.6 % 31.5-44.1 MEAN CELL VOLUME (test code=MCV) 73.1 Fl 84.5-98.6 MEAN CELL HGB (test code=MCH) 26.9 pg 27.0-34.2 MEAN CELL HGB CONCETRATION (test code=MCHC) 36.8 G/DL 31.5-34.0 RED CELL DISTRIBUTION WIDTH (test code=RDW) 18.1 SD 11.5-14.5 PLATELET COUNT (test code=PLT) 124.0 K/mm3 150-450 NEUTROPHIL % (test code=NT%) 65.9 % 40-76 LYMPHOCYTE % (test code=LY%) 14.0 % 20.5-51.1 MONOCYTE % (test code=MO%) 17.3 % 1.7-9.3 EOSINOPHIL % (test code=EO%) 2.6 % 0.0-6.0 BASOPHIL % (test code=BA%) 0.2 % 0.0-2.0 NEUTROPHIL # (test code=NT#) 8.77 K/mm3 1.8-7.6 LYMPHOCYTE # (test code=LY#) 1.9 K/mm3 0.6-3.2 MONOCYTE # (test code=MO#) 2.3 K/mm3 0.3-1.1 EOSINOPHIL # (test code=EO#) 0.3 K/mm3 0.0-0.4 BASOPHIL # (test code=BA#) 0.0 K/mm3 0.0-0.1 MANUAL DIFF REQUIRED (test code=MDIFF) NO DIFF/SCN CRITERIA SLIDE REVIEW CONSISTANT WITH AUTO DIFFERENTIAL.PLATELET COUNT REVIEWED AND VERIFIED. BASIC METABOLIC [id number] 05:47:00* Test Item Value Reference Range Comments SODIUM (test code=NA) 135 mmol/L 134-147 POTASSIUM (test code=K) 5.6 mmol/L 3.4-5.0 CHLORIDE (test code=CL) 106 mmol/L 100-108 CARBON DIOXIDE (test code=CO2) 18 mmol/L 21-32 ANION GAP (test code=GAP) 11.0 GAP calc 4.0-15.0 GLUCOSE (test code=GLU) 173 MG/DL 70-110 BLOOD UREA NITROGEN (test code=BUN) 86 MG/DL 7-18 GLOMERULAR FILTRATION RATE (test code=GFR) 9 estGFR >60 CREATININE (test code=CREAT) 6.3 MG/DL 0.6-1.0 CALCIUM (test code=CA) 7.9 MG/DL 8.5-10.1 [id number] 05:47:00* Test Item Value Reference Range Comments PHOSPHOROUS (test code=PHOS) 6.5 MG/DL 2.5-4.9 [id number] 05:47:00* Test Item Value Reference Range Comments MAGNESIUM (test code=MAG) 2.4 MG/DL 1.8-2.4 CBC W/AUTO [id number] 05:37:00* Test Item Value Reference Range Comments WHITE BLOOD CELL (test code=WBC) 13.3 K/mm3 3.5-11.0 RED BLOOD CELL (test code=RBC) 4.05 M/mm3 4.70-6.10 HEMOGLOBIN (test code=HGB) 10.9 G/DL 10.4-14.9 HEMATOCRIT (test code=HCT) 29.6 % 31.5-44.1 MEAN CELL VOLUME (test code=MCV) 73.1 Fl 84.5-98.6 MEAN CELL HGB (test code=MCH) 26.9 pg 27.0-34.2 MEAN CELL HGB CONCETRATION (test code=MCHC) 36.8 G/DL 31.5-34.0 RED CELL DISTRIBUTION WIDTH (test code=RDW) 18.1 SD 11.5-14.5 PLATELET COUNT (test code=PLT) 124.0 K/mm3 150-450 NEUTROPHIL % (test code=NT%) % 40-76 LYMPHOCYTE % (test code=LY%) % 20.5-51.1 MONOCYTE % (test code=MO%) % 1.7-9.3 EOSINOPHIL % (test code=EO%) % 0.0-6.0 BASOPHIL % (test code=BA%) % 0.0-2.0 NEUTROPHIL # (test code=NT#) K/mm3 1.8-7.6 LYMPHOCYTE # (test code=LY#) K/mm3 0.6-3.2 MONOCYTE # (test code=MO#) K/mm3 0.3-1.1 EOSINOPHIL # (test code=EO#) K/mm3 0.0-0.4 BASOPHIL # (test code=BA#) K/mm3 0.0-0.1 MANUAL DIFF REQUIRED (test code=MDIFF) DIFF/SCN CRITERIA BASIC METABOLIC [id number] 10:36:00* Test Item Value Reference Range Comments SODIUM (test code=NA) 137 mmol/L 134-147 POTASSIUM (test code=K) 4.8 mmol/L 3.4-5.0 CHLORIDE (test code=CL) 109 mmol/L 100-108 CARBON DIOXIDE (test code=CO2) 20 mmol/L 21-32 ANION GAP (test code=GAP) 8.0 GAP calc 4.0-15.0 GLUCOSE (test code=GLU) 141 MG/DL 70-110 BLOOD UREA NITROGEN (test code=BUN) 69 MG/DL 7-18 GLOMERULAR FILTRATION RATE (test code=GFR) 11 estGFR >60 CREATININE (test code=CREAT) 5.0 MG/DL 0.6-1.0 CALCIUM (test code=CA) 7.5 MG/DL 8.5-10.1 [id number] 07:26:00* Test Item Value Reference Range Comments TROPONIN-I (test code=TROPI) 0.770 NG/ML 0.000-0.045 Negative: </=0.045 Positive: >/=0.046 Correlation with serial results, other cardiac markers, and clinical findings is necessary to determine the clinical significance of this result. Quantitative results using different methodologies should not be compared to one another as numerical results may varyby method. Completed by Nursing: [id number] 04:13:00* Test Item Value Reference Range Comments TROPONIN-I (test code=TROPI) 0.739 NG/ML 0.000-0.045 Negative: </=0.045 Positive: >/=0.046 Correlation with serial results, other cardiac markers, and clinical findings is necessary to determine the clinical significance of this result. Quantitative results using different methodologies should not be compared to one another as numerical results may varyby method. Completed by Nursing: NOBASIC METABOLIC [id number] 04:06:00* Test Item Value Reference Range Comments SODIUM (test code=NA) 133 mmol/L 134-147 POTASSIUM (test code=K) 8.1 mmol/L 3.4-5.0 CHLORIDE (test code=CL) 113 mmol/L 100-108 CARBON DIOXIDE (test code=CO2) 9 mmol/L 21-32 ANION GAP (test code=GAP) 11.0 GAP calc 4.0-15.0 GLUCOSE (test code=GLU) 227 MG/DL 70-110 BLOOD UREA NITROGEN (test code=BUN) 134 MG/DL 7-18 GLOMERULAR FILTRATION RATE (test code=GFR) 6 estGFR >60 CREATININE (test code=CREAT) 8.3 MG/DL 0.6-1.0 CALCIUM (test code=CA) 7.5 MG/DL 8.5-10.1 UA RFLX MICR CULT IF [id number] 02:33:00* Test Item Value Reference Range Comments UA COLOR (test code=COLU) YELLOW discript YEL/STRAW UA APPEARANCE (test code=APPU) TURBID discript CLEAR UA GLUCOSE DIPSTICK (test code=DGLUU) NEGATIVE mg/dL NEG UA BILIRUBIN DIPSTICK (test code=BILU) NEGATIVE mg/dL NEG UA KETONE DIPSTICK (test code=KETU) NEGATIVE mg/dL NEG UA SPECIFIC GRAVITY (test code=SGU) 1.020 SG 1.005-1.030 UA BLOOD DIPSTICK (test code=OLIVIA) 3+ mg/DL NEG UA PH DIPSTICK (test code=CARIN) <=5.0 pH UNITS 5.0-7.0 UA PROTEIN DIPSTICK (test code=PROU) 2+ mg/dL NEG UA UROBILINIOGEN DIPSTICK (test code=URO) 0.2 mg/dL <2.0 UA NITRITE DIPSTICK (test code=ELIZABETH) NEGATIVE SCREEN NEG UA LEUKOCYTE ESTERASE DIPSTICK (test code=LEUU) NEGATIVE Leuk/mcL NEGATIVE UA CULTURE NEEDED? (test code=UACULT) Criteria Culture CHK SOURCE OF URINE: CLEAN CATCHIndication for culture: Delirium-if no other src UA RFLX MICR CULT IF [id number] 02:33:00* Test Item Value Reference Range Comments UA COLOR (test code=COLU) YELLOW discript YEL/STRAW UA APPEARANCE (test code=APPU) TURBID discript CLEAR UA GLUCOSE DIPSTICK (test code=DGLUU) NEGATIVE mg/dL NEG UA BILIRUBIN DIPSTICK (test code=BILU) NEGATIVE mg/dL NEG UA KETONE DIPSTICK (test code=KETU) NEGATIVE mg/dL NEG UA SPECIFIC GRAVITY (test code=SGU) 1.020 SG 1.005-1.030 UA BLOOD DIPSTICK (test code=OLIVIA) 3+ mg/DL NEG UA PH DIPSTICK (test code=CARIN) <=5.0 pH UNITS 5.0-7.0 UA PROTEIN DIPSTICK (test code=PROU) 2+ mg/dL NEG UA UROBILINIOGEN DIPSTICK (test code=URO) 0.2 mg/dL <2.0 UA NITRITE DIPSTICK (test code=ELIZABETH) NEGATIVE SCREEN NEG UA LEUKOCYTE ESTERASE DIPSTICK (test code=LEUU) NEGATIVE Leuk/mcL NEGATIVE UA WBC (test code=WBCU) 1-3 #WBC/HPF 0-3 UA RBC (test code=RBCU) 0-1 #RBC/HPF 0-3 UA BACTERIA (test code=BACU) 4+ /HPF NONE-TRACE UA SQUAMOUS CELLS (test code=SQU) TRACE /HPF NONE UA CULTURE NEEDED? (test code=UACULT) NO, WBC<10 Criteria Culture CHK SOURCE OF URINE: CLEAN CATCHIndication for culture: Delirium-if no other src CBC W/AUTO [id number] 02:01:00* Test Item Value Reference Range Comments WHITE BLOOD CELL (test code=WBC) 16.1 K/mm3 3.5-11.0 RED BLOOD CELL (test code=RBC) 4.47 M/mm3 4.70-6.10 HEMOGLOBIN (test code=HGB) 12.1 G/DL 10.4-14.9 HEMATOCRIT (test code=HCT) 32.3 % 31.5-44.1 MEAN CELL VOLUME (test code=MCV) 72.3 Fl 84.5-98.6 MEAN CELL HGB (test code=MCH) 27.1 pg 27.0-34.2 MEAN CELL HGB CONCETRATION (test code=MCHC) 37.5 G/DL 31.5-34.0 RED CELL DISTRIBUTION WIDTH (test code=RDW) 17.8 SD 11.5-14.5 PLATELET COUNT (test code=PLT) 161.0 K/mm3 150-450 NEUTROPHIL % (test code=NT%) 76.4 % 40-76 LYMPHOCYTE % (test code=LY%) 10.8 % 20.5-51.1 MONOCYTE % (test code=MO%) 12.0 % 1.7-9.3 EOSINOPHIL % (test code=EO%) 0.7 % 0.0-6.0 BASOPHIL % (test code=BA%) 0.1 % 0.0-2.0 NEUTROPHIL # (test code=NT#) 12.30 K/mm3 1.8-7.6 LYMPHOCYTE # (test code=LY#) 1.7 K/mm3 0.6-3.2 MONOCYTE # (test code=MO#) 1.9 K/mm3 0.3-1.1 EOSINOPHIL # (test code=EO#) 0.1 K/mm3 0.0-0.4 BASOPHIL # (test code=BA#) 0.0 K/mm3 0.0-0.1 MANUAL DIFF REQUIRED (test code=MDIFF) NO DIFF/SCN CRITERIA SLIDE REVIEW CONSISTANT WITH AUTO DIFFERENTIAL. [id number] 02:00:00* Test Item Value Reference Range Comments TROPONIN-I (test code=TROPI) 0.766 NG/ML 0.000-0.045 Negative: </=0.045 Positive: >/=0.046 Correlation with serial results, other cardiac markers, and clinical findings is necessary to determine the clinical significance of this result. Quantitative results using different methodologies should not be compared to one another as numerical results may varyby method. Completed by Nursing: NOCOMPREHENSIVE METABOLIC [id number] 01:30:00* Test Item Value Reference Range Comments SODIUM (test code=NA) 131 mmol/L 134-147 POTASSIUM (test code=K) 8.6 mmol/L 3.4-5.0 CHLORIDE (test code=CL) 110 mmol/L 100-108 CARBON DIOXIDE (test code=CO2) 9 mmol/L 21-32 ANION GAP (test code=GAP) 12.0 GAP calc 4.0-15.0 GLUCOSE (test code=GLU) 123 MG/DL 70-110 BLOOD UREA NITROGEN (test code=BUN) 140 MG/DL 7-18 GLOMERULAR FILTRATION RATE (test code=GFR) 6 estGFR >60 CREATININE (test code=CREAT) 8.9 MG/DL 0.6-1.0 TOTAL PROTEIN (test code=PROT) 7.6 G/DL 6.4-8.2 ALBUMIN (test code=ALB) 2.6 G/DL 3.4-5.0 GLOBULIN (test code=GLOB) 5.0 GM/dL ALBUMIN/GLOBULIN RATIO (test code=A/G) 0.5 RATIO 1.2-2.2 CALCIUM (test code=CA) 8.3 MG/DL 8.5-10.1 BILIRUBIN TOTAL (test code=BILT) 1.90 MG/DL 0.2-1.2 SGOT/AST (test code=AST) 1006 Unit/L 15-37 SGPT/ALT (test code=ALT) 270 Unit/L 12-78 ALKALINE PHOSPHATASE TOTAL (test code=ALKP) 357 Unit/L 45-117 [id number] 01:30:00* Test Item Value Reference Range Comments MAGNESIUM (test code=MAG) 3.1 MG/DL 1.8-2.4 NT PRO-BRAIN NATRIURETIC [id number] 01:30:00* Test Item Value Reference Range Comments NT PRO-BRAIN NATRIURETIC PEPTI (test code=PROBNP) 909 PG/ML 0-100 LACTIC [id number] 01:27:00* Test Item Value Reference Range Comments LACTIC ACID (test code=LACT) 1.5 mmol/L 0.4-2.0 - XR CHEST 1 [id number] 01:12:00 Name: KATY ESTES [facility] : 1960 Age/S: 59 / F [address] [address] [place] Unit #: [id number] Loc: [place] [address] Phys: Angela Cummings MD Acct: [id number] Dis Date: Status: REG PHONE #: [phone] Exam Date: 06/09/2019 0108 FAX #: Reason: Suspected Sepsis EXAMS: CPT: [id number] XR CHEST 1 V 78054 Fluoro Time: DAP (Gy m2): Air Kerma (mGy): EXAMINATION: - XR CHEST 1 V LOCATION: 1 INDICATION/CLINICAL HISTORY: Suspected Sepsis COMPARISON: Chest x-ray 03/13/2017. TECHNIQUE: Frontal view of the chest. FINDINGS: Cardiomediastinal silhouette: Cardiac silhouette is normal in size. There is mild aortic arch atherosclerotic calcification. Pulmonary vasculature: Not congested. Lungs/pleura: New patchy left basilar consolidation. Linear densities in the right lung base may reflect atelectasis or infiltrates. No pneumothorax or pleural effusion. Upper abdomen: Cholecystectomy clips in the right upper quadrant. No subdiaphragmatic free air. Regional osseous structures: Intact. IMPRESSION: Left basilar consolidation which may reflect pneumonia in the appropriate clinical setting. at 0112 Reported and signed by: Saeid Boyer M.D. CC: Angela Cummings MD PAGE 1 Signed Report Name: KATY ESTES [place] : 1960 Age/S: 59 / F [address] [address] [place] [place] Unit #: [id number] Loc: [place] [address] Phys: Angela Cummings MD Acct: [id number] Dis Date: Status: REG ER PHONE #: [phone] Exam Date: 06/09/2019 0108 FAX #: Reason: Suspected Sepsis EXAMS: CPT: [id number] XR CHEST 1 V [id number] Fluoro Time: DAP (Gy m2): Air Kerma (mGy): <Continued> Technologist: Brady Roy, RT(R)(CT) Trnscb Date/Time: 06/09/2019 (011) t.SDR.TH15 Orig Print D/T: S: 06/09/2019 (0115) PAGE 2 Signed Report CBC W/AUTO [id number] 01:07:00* Test Item Value Reference Range Comments WHITE BLOOD CELL (test code=WBC) 16.1 K/mm3 3.5-11.0 RED BLOOD CELL (test code=RBC) 4.47 M/mm3 4.70-6.10 HEMOGLOBIN (test code=HGB) 12.1 G/DL 10.4-14.9 HEMATOCRIT (test code=HCT) 32.3 % 31.5-44.1 MEAN CELL VOLUME (test code=MCV) 72.3 Fl 84.5-98.6 MEAN CELL HGB (test code=MCH) 27.1 pg 27.0-34.2 MEAN CELL HGB CONCETRATION (test code=MCHC) 37.5 G/DL 31.5-34.0 RED CELL DISTRIBUTION WIDTH (test code=RDW) 17.8 SD 11.5-14.5 PLATELET COUNT (test code=PLT) 161.0 K/mm3 150-450 NEUTROPHIL % (test code=NT%) % 40-76 LYMPHOCYTE % (test code=LY%) % 20.5-51.1 MONOCYTE % (test code=MO%) % 1.7-9.3 EOSINOPHIL % (test code=EO%) % 0.0-6.0 BASOPHIL % (test code=BA%) % 0.0-2.0 NEUTROPHIL # (test code=NT#) K/mm3 1.8-7.6 LYMPHOCYTE # (test code=LY#) K/mm3 0.6-3.2 MONOCYTE # (test code=MO#) K/mm3 0.3-1.1 EOSINOPHIL # (test code=EO#) K/mm3 0.0-0.4 BASOPHIL # (test code=BA#) K/mm3 0.0-0.1 MANUAL DIFF REQUIRED (test code=MDIFF) DIFF/SCN CRITERIA PROTEIN ELECTROPHORESIS [id number] 15:14:00* Test Item Value Reference Range Comments TOTAL PROTEIN (test code=PROTE) 5.8 g/dL 6.0-8.5 ALBUMIN (test code=ALBE) 2.9 g/dL 2.9-4.4 [id number]-3-[id number] (test code=A1G) 0.2 g/dL 0.0-0.4 [id number]-1-[id number] (test code=A2G) 0.6 g/dL 0.4-1.0 BETA GLOBULIN (test code=BG) 0.8 g/dL 0.7-1.3 GAMMA GLOBULIN (test code=GG) 1.3 g/dL 0.4-1.8 M-SPIKE,SERUM (test code=MSPIKES) Not Observed g/dL Not Observed GLOBULIN ELECT (test code=GLOBE) 2.9 g/dL 2.2-3.9 ALBUMIN/GLOBULIN RATIO (test code=AGE) 1.0 0.7-1.7 PROT.ELECTROPH.INTERPRETATION (test code=ELEINT) Comment () Protein electrophoresis scan will follow via computer,mail, or parimutuel clerk delivery.Performed At: [facility] [address] [id number] Kyle L MD Ph:[phone] At: DA [facility] [address] [facility] [address] [place], [place] [id number] CN MD Ph:[phone] BASIC METABOLIC [id number] 05:27:00* Test Item Value Reference Range Comments SODIUM (test code=NA) 145 mmol/L 134-147 POTASSIUM (test code=K) 4.3 mmol/L 3.4-5.0 CHLORIDE (test code=CL) 112 mmol/L 100-108 CARBON DIOXIDE (test code=CO2) 28 mmol/L 21-32 ANION GAP (test code=GAP) 5.0 GAP calc 4.0-15.0 GLUCOSE (test code=GLU) 92 MG/DL 70-110 BLOOD UREA NITROGEN (test code=BUN) 23 MG/DL 7-18 GLOMERULAR FILTRATION RATE (test code=GFR) 37 estGFR >60 CREATININE (test code=CREAT) 1.8 MG/DL 0.6-1.0 CALCIUM (test code=CA) 8.4 MG/DL 8.5-10.1 CBC W/AUTO [id number] 05:21:00* Test Item Value Reference Range Comments WHITE BLOOD CELL (test code=WBC) 4.8 K/mm3 3.5-11.0 RED BLOOD CELL (test code=RBC) 3.95 M/mm3 4.70-6.10 HEMOGLOBIN (test code=HGB) 11.1 G/DL 10.4-14.9 HEMATOCRIT (test code=HCT) 32.1 % 31.5-44.1 MEAN CELL VOLUME (test code=MCV) 81.3 Fl 84.5-98.6 MEAN CELL HGB (test code=MCH) 28.1 pg 27.0-34.2 MEAN CELL HGB CONCETRATION (test code=MCHC) 34.6 G/DL 31.5-34.0 RED CELL DISTRIBUTION WIDTH (test code=RDW) 16.0 SD 11.5-14.5 PLATELET COUNT (test code=PLT) 266.0 K/mm3 150-450 MEAN PLATELET VOLUME (test code=MPV) 9.80 fL 7.0-10.5 NEUTROPHIL % (test code=NT%) 41.6 % 40-76 LYMPHOCYTE % (test code=LY%) 38.4 % 20.5-51.1 MONOCYTE % (test code=MO%) 13.9 % 1.7-9.3 EOSINOPHIL % (test code=EO%) 5.7 % 0.0-6.0 BASOPHIL % (test code=BA%) 0.4 % 0.0-2.0 NEUTROPHIL # (test code=NT#) 1.98 K/mm3 1.8-7.6 LYMPHOCYTE # (test code=LY#) 1.8 K/mm3 0.6-3.2 MONOCYTE # (test code=MO#) 0.7 K/mm3 0.3-1.1 EOSINOPHIL # (test code=EO#) 0.3 K/mm3 0.0-0.4 BASOPHIL # (test code=BA#) 0.0 K/mm3 0.0-0.1 MANUAL DIFF REQUIRED (test code=MDIFF) NO DIFF/SCN CRITERIA - US RETRO [id number] 15:37:00 Name: KATY ESTES : 1960 Age/S: 58 / F [address] [address] [place] Unit #: [id number] Loc: [place] [address] Phys: Sayra Schultz MD Acct: [id number] Dis Date: Status: ADM IN PHONE #: [phone] Exam Date: 06/03/2018 1410 FAX #: Reason: LUIS on CKD-III EXAMS: CPT: [id number] US RETRO LTD 75500 EXAM: RENAL ULTRASOUND INDICATION: LUIS on CKD-III COMPARISON: None available TECHNIQUE: Routine grayscale and color Doppler ultrasound examination of the kidneys was obtained. FINDINGS: The right kidney measures 8.9 x 3.8 x 4.7 cm and the left kidney measures 8.7 x 4.1 x 4.3 cm. The kidneys are normal in appearance with normal cortical thickness and cortical echogenicity. There are small cysts within the inferior right kidney measuring 1.5 x 1.5 x 1.5 cm and mid left kidney measuring 0.8 x 0.9 x 0.9 cm. No hydronephrosis or nephrolithiasis. The urinary bladder is normal in appearance. IMPRESSION: Simple renal cysts noted within both kidneys. No hydronephrosis. LOCATION: A1 at 1537 Reported and signed by: Hailey Burton M.D. CC: Sayra Schultz MD; Theodore Mitchell MD Technologist: Keyla Albarran [facility] Date/Time: 06/03/2018 (1537) 16 PAGE 1 Signed Report Name: KATY ESTES : 1960 Age/S: 58 / F [address] [address] [place] [place] Unit #: [id number] Loc: [place] [address] Phys: Sayra Schultz MD Acct: [id number] Dis Date: Status: ADM IN PHONE #: [phone] Exam Date: 06/03/2018 1410 FAX #: Reason: LUIS on CKD-III EXAMS: CPT: [id number] RETRO LTD [id number] <Continued > Orig Print D/T: S: 06/03/2018 (8159) Probe: PAGE 2 Signed Report UR SODIUM [id number] 12:58:00* Test Item Value Reference Range Comments UR SODIUM RANDOM (test code=BENI) 20 MEQ/L The Reference Range and Method Performance specificationshave not been established for this fluid. The test resultshould be correlated into the clinical context forinterpretation. URINALYSIS [id number] 12:58:00* Test Item Value Reference Range Comments UA COLOR (test code=COLU) YELLOW DESCRIPT YELLOW UA APPEARANCE (test code=APPU) CLEAR DESCRIPT CLEAR UA GLUCOSE DIPSTICK (test code=DGLUU) NEGATIVE mg/dL NEG UA BILIRUBIN DIPSTICK (test code=BILU) NEGATIVE mg/dL NEG UA KETONE DIPSTICK (test code=KETU) NEGATIVE mg/dL NEG UA SPECIFIC GRAVITY (test code=SGU) 1.010 SG 1.005-1.030 UA BLOOD DIPSTICK (test code=OLIVIA) NEGATIVE mg/DL NEG UA PH DIPSTICK (test code=CARIN) 6.5 pH UNITS 5.0-7.0 UA PROTEIN DIPSTICK (test code=PROU) 2+ mg/dL NEG UA UROBILINIOGEN DIPSTICK (test code=URO) NORMAL mg/dL <2.0 UA NITRITE DIPSTICK (test code=ELIZABETH) NEGATIVE SCREEN NEG UA LEUKOCYTE ESTERASE DIPSTICK (test code=LEUU) TRACE Leuk/mcL NEGATIVE UA WBC (test code=WBCU) 1-3 #WBC/HPF 0-3 UA RBC (test code=RBCU) NONE SEEN #RBC/HPF 0-3 UA BACTERIA (test code=BACU) 1+ /HPF NONE-TRACE UR SODIUM [id number] 12:58:00* Test Item Value Reference Range Comments UR SODIUM RANDOM (test code=BENI) 20 MEQ/L () The Reference Range and Method Performance specificationshave not been established for this fluid. The test resultshould be correlated into the clinical context forinterpretation. UR PROTEIN [id number] 12:58:00* Test Item Value Reference Range Comments UR PROTEIN TOTAL (test code=PROTU) 255.7 MG/DL 0.0-12.0 UR CREATININE [id number] 12:58:00* Test Item Value Reference Range Comments UR CREATININE RANDOM (test code=CREATU) 256.0 MG/DL 30-125 URINALYSIS [id number] 06:59:00* Test Item Value Reference Range Comments UA COLOR (test code=COLU) YELLOW DESCRIPT YELLOW UA APPEARANCE (test code=APPU) CLEAR DESCRIPT CLEAR UA GLUCOSE DIPSTICK (test code=DGLUU) NEGATIVE mg/dL NEG UA BILIRUBIN DIPSTICK (test code=BILU) NEGATIVE mg/dL NEG UA KETONE DIPSTICK (test code=KETU) NEGATIVE mg/dL NEG UA SPECIFIC GRAVITY (test code=SGU) 1.010 SG 1.005-1.030 UA BLOOD DIPSTICK (test code=OLIVIA) NEGATIVE mg/DL NEG UA PH DIPSTICK (test code=CARIN) 6.5 pH UNITS 5.0-7.0 UA PROTEIN DIPSTICK (test code=PROU) 2+ mg/dL NEG UA UROBILINIOGEN DIPSTICK (test code=URO) NORMAL mg/dL <2.0 UA NITRITE DIPSTICK (test code=ELIZABETH) NEGATIVE SCREEN NEG UA LEUKOCYTE ESTERASE DIPSTICK (test code=LEUU) TRACE Leuk/mcL NEGATIVE UA WBC (test code=WBCU) 1-3 #WBC/HPF 0-3 UA RBC (test code=RBCU) NONE SEEN #RBC/HPF 0-3 UA BACTERIA (test code=BACU) 1+ /HPF NONE-TRACE UR SODIUM [id number] 06:59:00* Test Item Value Reference Range Comments UR SODIUM RANDOM (test code=BENI) MEQ/L UR PROTEIN [id number] 06:59:00* Test Item Value Reference Range Comments UR PROTEIN TOTAL (test code=PROTU) 255.7 MG/DL 0.0-12.0 UR CREATININE [id number] 06:59:00* Test Item Value Reference Range Comments UR CREATININE RANDOM (test code=CREATU) 256.0 MG/DL 30-125 URINALYSIS [id number] 04:45:00* Test Item Value Reference Range Comments UA COLOR (test code=COLU) YELLOW DESCRIPT YELLOW UA APPEARANCE (test code=APPU) CLEAR DESCRIPT CLEAR UA GLUCOSE DIPSTICK (test code=DGLUU) NEGATIVE mg/dL NEG UA BILIRUBIN DIPSTICK (test code=BILU) NEGATIVE mg/dL NEG UA KETONE DIPSTICK (test code=KETU) NEGATIVE mg/dL NEG UA SPECIFIC GRAVITY (test code=SGU) 1.010 SG 1.005-1.030 UA BLOOD DIPSTICK (test code=OLIVIA) NEGATIVE mg/DL NEG UA PH DIPSTICK (test code=CARIN) 6.5 pH UNITS 5.0-7.0 UA PROTEIN DIPSTICK (test code=PROU) 2+ mg/dL NEG UA UROBILINIOGEN DIPSTICK (test code=URO) NORMAL mg/dL <2.0 UA NITRITE DIPSTICK (test code=ELIZABETH) NEGATIVE SCREEN NEG UA LEUKOCYTE ESTERASE DIPSTICK (test code=LEUU) TRACE Leuk/mcL NEGATIVE UR SODIUM [id number] 04:45:00* Test Item Value Reference Range Comments UR SODIUM RANDOM (test code=BENI) MEQ/L UR PROTEIN [id number] 04:45:00* Test Item Value Reference Range Comments UR PROTEIN TOTAL (test code=PROTU) 255.7 MG/DL 0.0-12.0 UR CREATININE [id number] 04:45:00* Test Item Value Reference Range Comments UR CREATININE RANDOM (test code=CREATU) 256.0 MG/DL 30-125 URINALYSIS [id number] 04:33:00* Test Item Value Reference Range Comments UA COLOR (test code=COLU) YELLOW DESCRIPT YELLOW UA APPEARANCE (test code=APPU) CLEAR DESCRIPT CLEAR UA GLUCOSE DIPSTICK (test code=DGLUU) NEGATIVE mg/dL NEG UA BILIRUBIN DIPSTICK (test code=BILU) NEGATIVE mg/dL NEG UA KETONE DIPSTICK (test code=KETU) NEGATIVE mg/dL NEG UA SPECIFIC GRAVITY (test code=SGU) 1.010 SG 1.005-1.030 UA BLOOD DIPSTICK (test code=OLIVIA) NEGATIVE mg/DL NEG UA PH DIPSTICK (test code=CARIN) 6.5 pH UNITS 5.0-7.0 UA PROTEIN DIPSTICK (test code=PROU) 2+ mg/dL NEG UA UROBILINIOGEN DIPSTICK (test code=URO) NORMAL mg/dL <2.0 UA NITRITE DIPSTICK (test code=ELIZABETH) NEGATIVE SCREEN NEG UA LEUKOCYTE ESTERASE DIPSTICK (test code=LEUU) TRACE Leuk/mcL NEGATIVE UR SODIUM [id number] 04:33:00* Test Item Value Reference Range Comments UR SODIUM RANDOM (test code=BENI) MEQ/L UR PROTEIN [id number] 04:33:00* Test Item Value Reference Range Comments UR PROTEIN TOTAL (test code=PROTU) MG/DL 0.0-12.0 UR CREATININE [id number] 04:33:00* Test Item Value Reference Range Comments UR CREATININE RANDOM (test code=CREATU) MG/DL 30-125 RENAL FUNCTION [id number] 04:04:00* Test Item Value Reference Range Comments SODIUM (test code=NA) 145 mmol/L 134-147 POTASSIUM (test code=K) 3.3 mmol/L 3.4-5.0 CHLORIDE (test code=CL) 111 mmol/L 100-108 CARBON DIOXIDE (test code=CO2) 26 mmol/L 21-32 GLUCOSE (test code=GLU) 109 MG/DL 70-110 BLOOD UREA NITROGEN (test code=BUN) 27 MG/DL 7-18 GLOMERULAR FILTRATION RATE (test code=GFR) 30 estGFR >60 CREATININE (test code=CREAT) 2.2 MG/DL 0.6-1.0 ALBUMIN (test code=ALB) 2.6 G/DL 3.4-5.0 CALCIUM (test code=CA) 8.5 MG/DL 8.5-10.1 PHOSPHOROUS (test code=PHOS) 3.7 MG/DL 2.5-4.9 URIC [id number] 04:04:00* Test Item Value Reference Range Comments URIC ACID (test code=URIC) 6.7 MG/DL 2.6-6.0 [id number] 04:04:00* Test Item Value Reference Range Comments MAGNESIUM (test code=MAG) 2.2 MG/DL 1.8-2.4 CBC W/AUTO [id number] 03:44:00* Test Item Value Reference Range Comments WHITE BLOOD CELL (test code=WBC) 4.6 K/mm3 3.5-11.0 RED BLOOD CELL (test code=RBC) 3.97 M/mm3 4.70-6.10 HEMOGLOBIN (test code=HGB) 11.2 G/DL 10.4-14.9 HEMATOCRIT (test code=HCT) 32.1 % 31.5-44.1 MEAN CELL VOLUME (test code=MCV) 80.9 Fl 84.5-98.6 MEAN CELL HGB (test code=MCH) 28.2 pg 27.0-34.2 MEAN CELL HGB CONCETRATION (test code=MCHC) 34.9 G/DL 31.5-34.0 RED CELL DISTRIBUTION WIDTH (test code=RDW) 15.9 SD 11.5-14.5 PLATELET COUNT (test code=PLT) 280.0 K/mm3 150-450 MEAN PLATELET VOLUME (test code=MPV) 9.50 fL 7.0-10.5 NEUTROPHIL % (test code=NT%) 47.9 % 40-76 LYMPHOCYTE % (test code=LY%) 32.7 % 20.5-51.1 MONOCYTE % (test code=MO%) 14.4 % 1.7-9.3 EOSINOPHIL % (test code=EO%) 4.8 % 0.0-6.0 BASOPHIL % (test code=BA%) 0.2 % 0.0-2.0 NEUTROPHIL # (test code=NT#) 2.20 K/mm3 1.8-7.6 LYMPHOCYTE # (test code=LY#) 1.5 K/mm3 0.6-3.2 MONOCYTE # (test code=MO#) 0.7 K/mm3 0.3-1.1 EOSINOPHIL # (test code=EO#) 0.2 K/mm3 0.0-0.4 BASOPHIL # (test code=BA#) 0.0 K/mm3 0.0-0.1 MANUAL DIFF REQUIRED (test code=MDIFF) NO DIFF/SCN CRITERIA CPK-MB [id number] 19:40:00* Test Item Value Reference Range Comments CREATINE KINASE (CK) (test code=CK) 96 Unit/L 26-192 CKMB (test code=CKMBT) 1.8 NG/ML 0.0-4.9 RELATIVE % INDEX (test code=REL%) 1.8 % 0.0-2.5 Completed by Nursing: [id number] 19:40:00* Test Item Value Reference Range Comments TROPONIN-I (test code=TROPI) 0.080 NG/ML 0.000-0.045 Negative: </=0.045 Positive: >/=0.046 Correlation with serial results, other cardiac markers, and clinical findings is necessary to determine the clinical significance of this result. Quantitative results using different methodologies should not be compared to one another as numerical results may varyby method. Completed by Nursing: NOCPK-MB [id number] 13:12:00* Test Item Value Reference Range Comments CREATINE KINASE (CK) (test code=CK) 113 Unit/L 26-192 CKMB (test code=CKMBT) 1.9 NG/ML 0.0-4.9 RELATIVE % INDEX (test code=REL%) 1.6 % 0.0-2.5 Completed by Nursing: [id number] 13:12:00* Test Item Value Reference Range Comments TROPONIN-I (test code=TROPI) 0.066 NG/ML 0.000-0.045 Negative: </=0.045 Positive: >/=0.046 Correlation with serial results, other cardiac markers, and clinical findings is necessary to determine the clinical significance of this result. Quantitative results using different methodologies should not be compared to one another as numerical results may varyby method. Completed by Nursing: KAYLA SALCIDO NE [id number] 11:54:00* Test Item Value Reference Range Comments CREATINE KINASE (CK) (test code=CK) 105 Unit/L 26-192 TROPONIN-I (test code=TROPI) 0.078 NG/ML 0.000-0.045 Negative: </=0.045 Positive: >/=0.046 Correlation with serial results, other cardiac markers, and clinical findings is necessary to determine the clinical significance of this result. Quantitative results using different methodologies should not be compared to one another as numerical results may varyby method. COMPREHENSIVE METABOLIC [id number] 05:03:00* Test Item Value Reference Range Comments SODIUM (test code=NA) 143 mmol/L 134-147 POTASSIUM (test code=K) 3.4 mmol/L 3.4-5.0 CHLORIDE (test code=CL) 109 mmol/L 100-108 CARBON DIOXIDE (test code=CO2) 26 mmol/L 21-32 ANION GAP (test code=GAP) 8.0 GAP calc 4.0-15.0 GLUCOSE (test code=GLU) 110 MG/DL 70-110 BLOOD UREA NITROGEN (test code=BUN) 22 MG/DL 7-18 GLOMERULAR FILTRATION RATE (test code=GFR) 28 estGFR >60 CREATININE (test code=CREAT) 2.3 MG/DL 0.6-1.0 TOTAL PROTEIN (test code=PROT) 6.6 G/DL 6.4-8.2 ALBUMIN (test code=ALB) 2.7 G/DL 3.4-5.0 GLOBULIN (test code=GLOB) 3.9 GM/dL ALBUMIN/GLOBULIN RATIO (test code=A/G) 0.7 RATIO 1.2-2.2 CALCIUM (test code=CA) 8.7 MG/DL 8.5-10.1 BILIRUBIN TOTAL (test code=BILT) 0.30 MG/DL 0.2-1.2 SGOT/AST (test code=AST) 12 Unit/L 15-37 SGPT/ALT (test code=ALT) 14 Unit/L 12-78 ALKALINE PHOSPHATASE TOTAL (test code=ALKP) 90 Unit/L 45-117 Comment: FASTING IN AMLIPID PROFILE (CORONARY RISK)2018-06-02 05:03:00* Test Item Value Reference Range Comments TRIGLYCERIDES (test code=TRIG) 82 MG/DL 0-150 CHOLESTEROL (test code=CHOL) 165 MG/DL 133-200 CHOLESTEROL/HDL RATIO (test code=CHOLHDL) 2.58 RATIO >0 HDL CHOLESTEROL (test code=HDL) 64 MG/DL 40-59 NON-HDL CHOLESTEROL (test code=NHDL) 101 mg/dL <130 LIPOPROTEIN LDL (test code=LDL) 91 MG/DL 0-129 LDL/HDL (test code=LDL/HDL) 1.42 Ratio 1.48-3.22 Avg Comment: FASTING IN [facility] W/AUTO [id number] 04:55:00* Test Item Value Reference Range Comments WHITE BLOOD CELL (test code=WBC) 4.8 K/mm3 3.5-11.0 RED BLOOD CELL (test code=RBC) 4.19 M/mm3 4.70-6.10 HEMOGLOBIN (test code=HGB) 11.9 G/DL 10.4-14.9 HEMATOCRIT (test code=HCT) 33.3 % 31.5-44.1 MEAN CELL VOLUME (test code=MCV) 79.5 Fl 84.5-98.6 MEAN CELL HGB (test code=MCH) 28.4 pg 27.0-34.2 MEAN CELL HGB CONCETRATION (test code=MCHC) 35.7 G/DL 31.5-34.0 RED CELL DISTRIBUTION WIDTH (test code=RDW) 15.6 SD 11.5-14.5 PLATELET COUNT (test code=PLT) 303.0 K/mm3 150-450 MEAN PLATELET VOLUME (test code=MPV) 9.40 fL 7.0-10.5 NEUTROPHIL % (test code=NT%) 52.1 % 40-76 LYMPHOCYTE % (test code=LY%) 32.2 % 20.5-51.1 MONOCYTE % (test code=MO%) 12.8 % 1.7-9.3 EOSINOPHIL % (test code=EO%) 2.7 % 0.0-6.0 BASOPHIL % (test code=BA%) 0.2 % 0.0-2.0 NEUTROPHIL # (test code=NT#) 2.47 K/mm3 1.8-7.6 LYMPHOCYTE # (test code=LY#) 1.5 K/mm3 0.6-3.2 MONOCYTE # (test code=MO#) 0.6 K/mm3 0.3-1.1 EOSINOPHIL # (test code=EO#) 0.1 K/mm3 0.0-0.4 BASOPHIL # (test code=BA#) 0.0 K/mm3 0.0-0.1 MANUAL DIFF REQUIRED (test code=MDIFF) NO DIFF/SCN CRITERIA - MRI BRAIN W/O [id number] 22:14:00 FAX: Theodore Mitchell MD [phone] Camps: PM St: [facility]: [facility] Age/S: 58/F [address] [address] [place] Unit #: [id number] Loc: L.ICU0 [place] [address] Phys: Theodore Mitchell MD Acct: [id number] Dis Date: Status: ADM IN PHONE #: [phone] Exam Date: 06/01/2018 1530 FAX #: Reason: ISCHEMIC STROKE EXAMS: CPT: [id number] MRI BRAIN W/O CONTRAST 32283 Location: T 18 MRI BRAIN: 06/01/18 COMPARISON EXAM: MRA assessment of the he ad and neck of 06/01/[address] exam of 05/31/18. The exam is also warren ng correlated with remote head CT exam of 03/11/17 TECHNIQUE : MRI examination of the brain without contrast was performed on a high fi eld magnet . Multiplanar and multisequence technique utilized. CLINICAL HISTORY: Ischemic stroke. FINDINGS: No positive mass-effect, midline shift, extra-axial collection, or acute intracranial hemorrhage seen. No acute territorial infarction is seen. There is no intra or extra-axial masses. Assessment of skull base unremark able. There is no acute restriction or acute vascular insult on DW I 1000 B imaging. On gradient echo imaging there are numerou s tiny punctate areas of magnetic susceptibility artifact. These extensive ly involve the thalami but also was seen within the white matter and in th e basal ganglia. The may be due to tiny areas of hypertensive hemorrhage versus amyloid angiopathy. Patient noted to have significant confluent chronic microvascular changes in the supratentorium particular the frontal lobes. As noted on the prior head CT exams there is atrophy stated age. Old peripheral infarct in the right thalamus. Atrophy involving both cerebellar hemispheres. Do not see a subacute area of infarction. No chronic areas of large territorial infarction. Tiny old lacunar infarcts in the thalami. . Normal signal void in the basilar artery and carotid siphons are seen. PAGE 1 Signed Report (CONTINUED) FAX: Theodore Mitchell MD [phone] Camps: PM St: ADM Name: KATY ESTES [place] : 1960 Age/S: 58/F [address] [address] [facility] Unit #: [id number] Loc: L.ICU0 [place] [address] Phys: Theodore Mitchell MD Acct: [id number] Dis Date: Status: ADM IN PHONE #: [phone] Exam Date: 06/01/2018 1530 FAX #: Reason: ISCHEMIC STROKE EXAMS: CPT: [id number] MRI BRAIN W/O CONTRAST 19901 <Continued> IMPRESSION: No acute vascular insult is seen in this patient. There is atrophy for stated age with significant but chronic-appearing confluent microvascular changes in the supratentorium.. There are multiple tiny punctate areas of old hemorrhage possibly due to prior hypertensive microhemorrhage versus amyloid angiopathy. No acute hemorrhage is seen. Multiple small old lacunar infarcts identified as noted above without large territorial infarction at 4944 Reported and signed by: Mag Michael M.D. CC: Theodore Mitchell MD Technologist: RT Jessica(R)(MR) Transcribed Date/Time/By: 06/01/2018 (2213) :[email or web address] Orig Print D/T: S: 06/01/2018 (5657) PAGE 2 Signed Report - MRA NECK W/O [id number] 17:17:00 FAX: Theodore Mitchell MD [phone] Camps: PM St: ADM Name: KATY RAHMAN [place] : 1 Age/S: 58/F [address] [address] [place] Unit #: [id number] Loc: L.ICU0 [place] [address] Phys: Theodore Mitchell MD Acct: [id number] Dis Date: Status: ADM IN PHONE #: [phone] Exam Date: 06/01/2018 1545 FAX #: Reason: CVA EXAMS: CPT: [id number] MRA NECK W/O CONT 14578 CLINICAL INFORMATION: CVA evalua tion. Dictation location: J9 COMPARISON: No prior Technique: Srkk-wu-siwfgj study was viewed in the rotating frame of reference. Findings: Motion artifact reduces sensitivity of some of the scan slices. All stenoses are estimated using NACSET criteria . Carotid circulation: Stairstep artifact from breathing or swallo wing partially obscures the carotid system. Both common carotid arteries and bifurcations appear patent with adequate internal and external ca rotid runoff. Vertebral circulation: The vertebral arteries are co dominant and patent to the formation of the basilar artery. IMPRESSION: 1. Moderate motion artifact reduces sensitivity of the sca n. 2. No hemodynamically significant lesion identified. at 1717 Reported and signed by: Manny Jay M.D. CC: Theodore Mitchell MD Technologist: RT Jessica(R)(MR) Transcribed Date/Time/By: 06/01/2018 (4564) :Alam Delia Orig Print D/T: S: 06/01/2018 (8611) PAGE 1 Signed Report - MRA HEAD [id number] 17:15:00 FAX: Theodore Mitchell MD [phone] Camps: PM St: ADM Name: KATY RAHMAN [place] : 1 Age/S: 58/F [address] [address] Unit #: [id number] Loc: L.ICU0 [place] [address] Phys: Theodore Mitchell MD Acct: [id number] Dis Date: Status: ADM IN PHONE #: [phone] Exam Date: 06/01/2018 1530 FAX #: Reason: CVA EXAMS: CPT: [id number] MRA HEAD W/CONT 28885 CLINICAL INFORMATION: CVA.. Dictation Location: B2 COMPARISON: Head CT 05/31/2018 reported no acute finding Technique: Slzm-nk-calsia study was viewed in the rotating and tumbled frame of reference. FINDINGS: Anterior circulation: The carotid arteries, bifurcations, and the anterior and middle cerebral runoff appears unremarkable. The region of the an terior communicating artery appeared unremarkable. Posterior circu lation: Posterior communicating arteries are present. The vertebral arteri es, basilar artery and bifurcation, and the posterior cerebral and superio r cerebellar runoff appeared maintained. IMPRESSION: No aneurysm or hemodynamically significant lesion identified. Electronically Signed by Saima Jay on at 9835 Reported and signed by: Micah Jay M.D. CC: Theodore Mitchell MD Technologist: RT Jessica(R)(MR) Transcribed Date/Time/By: 06/01/2018 (1607) :MarthaV Orig Print D/T: S: 06/01/2018 (2086) PAGE 1 Signed Report GLUCOSE BEDSIDE [id number] 12:17:00* Test Item Value Reference Range Comments GLUCOSE BEDSIDE TESTING (test code=GLUBED) 108 mg/dL 70-110 BASIC METABOLIC [id number] 05:40:00* Test Item Value Reference Range Comments SODIUM (test code=NA) 142 mmol/L 134-147 POTASSIUM (test code=K) 3.1 mmol/L 3.4-5.0 CHLORIDE (test code=CL) 111 mmol/L 100-108 CARBON DIOXIDE (test code=CO2) 25 mmol/L 21-32 ANION GAP (test code=GAP) 6.0 GAP calc 4.0-15.0 GLUCOSE (test code=GLU) 98 MG/DL 70-110 BLOOD UREA NITROGEN (test code=BUN) 19 MG/DL 7-18 GLOMERULAR FILTRATION RATE (test code=GFR) 37 estGFR >60 CREATININE (test code=CREAT) 1.8 MG/DL 0.6-1.0 CALCIUM (test code=CA) 8.8 MG/DL 8.5-10.1 CBC W/AUTO [id number] 05:28:00* Test Item Value Reference Range Comments WHITE BLOOD CELL (test code=WBC) 4.6 K/mm3 3.5-11.0 RED BLOOD CELL (test code=RBC) 4.12 M/mm3 4.70-6.10 HEMOGLOBIN (test code=HGB) 11.7 G/DL 10.4-14.9 HEMATOCRIT (test code=HCT) 32.8 % 31.5-44.1 MEAN CELL VOLUME (test code=MCV) 79.6 Fl 84.5-98.6 MEAN CELL HGB (test code=MCH) 28.4 pg 27.0-34.2 MEAN CELL HGB CONCETRATION (test code=MCHC) 35.7 G/DL 31.5-34.0 RED CELL DISTRIBUTION WIDTH (test code=RDW) 15.5 SD 11.5-14.5 PLATELET COUNT (test code=PLT) 300.0 K/mm3 150-450 MEAN PLATELET VOLUME (test code=MPV) 9.40 fL 7.0-10.5 NEUTROPHIL % (test code=NT%) 56.9 % 40-76 LYMPHOCYTE % (test code=LY%) 26.8 % 20.5-51.1 MONOCYTE % (test code=MO%) 11.5 % 1.7-9.3 EOSINOPHIL % (test code=EO%) 4.6 % 0.0-6.0 BASOPHIL % (test code=BA%) 0.2 % 0.0-2.0 NEUTROPHIL # (test code=NT#) 2.61 K/mm3 1.8-7.6 LYMPHOCYTE # (test code=LY#) 1.2 K/mm3 0.6-3.2 MONOCYTE # (test code=MO#) 0.5 K/mm3 0.3-1.1 EOSINOPHIL # (test code=EO#) 0.2 K/mm3 0.0-0.4 BASOPHIL # (test code=BA#) 0.0 K/mm3 0.0-0.1 MANUAL DIFF REQUIRED (test code=MDIFF) NO DIFF/SCN CRITERIA RULE OUT NE [id number] 02:07:00* Test Item Value Reference Range Comments CREATINE KINASE (CK) (test code=CK) 180 Unit/L 26-192 TROPONIN-I (test code=TROPI) 0.065 NG/ML 0.000-0.045 Negative: </=0.045 Positive: >/=0.046 Correlation with serial results, other cardiac markers, and clinical findings is necessary to determine the clinical significance of this result. Quantitative results using different methodologies should not be compared to one another as numerical results may varyby method. CPK-MB [id number] 23:07:00* Test Item Value Reference Range Comments CREATINE KINASE (CK) (test code=CK) 180 Unit/L 26-192 CKMB (test code=CKMBT) 3.4 NG/ML 0.0-4.9 RELATIVE % INDEX (test code=REL%) 1.8 % 0.0-2.5 Completed by Nursing: [id number] 23:07:00* Test Item Value Reference Range Comments TROPONIN-I (test code=TROPI) 0.057 NG/ML 0.000-0.045 Negative: </=0.045 Positive: >/=0.046 Correlation with serial results, other cardiac markers, and clinical findings is necessary to determine the clinical significance of this result. Quantitative results using different methodologies should not be compared to one another as numerical results may varyby method. Completed by Nursing: NOPROTHROMBIN [id number] 18:45:00* Test Item Value Reference Range Comments PT PATIENT (test code=PTP) 11.7 SECONDS 9.3-12.9 INTERNATIONAL NORMAL RATIO (test code=INR) 1.02 INR Unit 0.8-1.2 THROMBOPLASTIN TIME [id number] 18:45:00* Test Item Value Reference Range Comments THROMBOPLASTIN TIME PARTIAL (test code=PTT) 33.0 SECONDS 26-35 TROPONIN I [id number] 18:43:00* Test Item Value Reference Range Comments TROPONIN I RAPID (test code=TROPIRAP) 0.04 ng/mL 0.00-0.08 - The use of serial sampling and testing protocol is a recommended practice- An elevated troponin level alone is often not sufficient for diagnosis of myocardial infarction. CBC W/O [id number] 18:34:00* Test Item Value Reference Range Comments WHITE BLOOD CELL (test code=WBC) 5.4 K/mm3 3.5-11.0 RED BLOOD CELL (test code=RBC) 4.22 M/mm3 4.70-6.10 HEMOGLOBIN (test code=HGB) 11.9 G/DL 10.4-14.9 HEMATOCRIT (test code=HCT) 33.8 % 31.5-44.1 MEAN CELL VOLUME (test code=MCV) 80.1 Fl 84.5-98.6 MEAN CELL HGB (test code=MCH) 28.2 pg 27.0-34.2 MEAN CELL HGB CONCETRATION (test code=MCHC) 35.2 G/DL 31.5-34.0 RED CELL DISTRIBUTION WIDTH (test code=RDW) 15.7 SD 11.5-14.5 PLATELET COUNT (test code=PLT) 317.0 K/mm3 150-450 MEAN PLATELET VOLUME (test code=MPV) 9.60 fL 7.0-10.5 CHEMISTRY 8 [id number] 18:32:00* Test Item Value Reference Range Comments ISTAT-SODIUM (test code=NAP) mmol/L 135-146 ISTAT-POTASSIUM (test code=KP) mmol/L 3.5-4.9 ISTAT-CHLORIDE (test code=CLP) mmol/L 98-109 ISTAT-CARBON DIOXIDE (test code=ISTAT-CO2) mmol/L 24-29 ISTAT CALCIUM IONIZED (test code=ISTAT-ALEM) mmol/L 1.12-1.32 ISTAT-GLUCOSE (test code=GLUP) mg/dL 70-105 ISTAT-BUN (test code=BUNP) mg/dL 8-26 BEDSIDE CREATININE (test code=CREATBED) mg/dL 0.6-1.3 GLOMERULAR FILTRATION RATE POC (test code=GFRBED) 28 51-120 CHEMISTRY 8 [id number] 18:32:00* Test Item Value Reference Range Comments ISTAT-SODIUM (test code=NAP) 143 mmol/L 135-146 ISTAT-POTASSIUM (test code=KP) 3.7 mmol/L 3.5-4.9 ISTAT-CHLORIDE (test code=CLP) 103 mmol/L 98-109 ISTAT-CARBON DIOXIDE (test code=ISTAT-CO2) 27 mmol/L 24-29 ISTAT CALCIUM IONIZED (test code=ISTAT-ALEM) 1.23 mmol/L 1.12-1.32 ISTAT-GLUCOSE (test code=GLUP) 130 mg/dL 70-105 ISTAT-BUN (test code=BUNP) 23 mg/dL 8-26 BEDSIDE CREATININE (test code=CREATBED) 2.3 mg/dL 0.6-1.3 GLOMERULAR FILTRATION RATE POC (test code=GFRBED) 28 51-120 - CT HEAD/BRAIN W/O [id number] 18:30:00 Name: KATY ESTES [facility] : 1960 Age/S: 58 / F [address] [address] [place] Unit #: [id number] Loc: [place] [address] Phys: Sabrina Grove MD Acct: [id number] Dis Date: Status: PRE ER PHONE #: [phone] Exam Date: 05/31/2018 5353 FAX #: Reason: Code Stroke EXAMS: CPT: [id number] CT HEAD/BRAIN W/O CONT 34516 Location: T18 CT head, 05/31/18 COMPARISON EXAMS:Head CT exam of 03/11/17 TECHNIQUE: CT examination of the brain was performed without contrast on a helical scanner. Scanning conducted from skull base to vertex in the axial plane acquiring contiguous 5mm slice thickness . The examination was performed on a [facility] at helical CT scanner utilizing low-dose radiation technique. Automatic exposure control timing was utilized to minimize radiation dose. CLINICAL HISTORY: Code stroke FINDINGS: There is atrophy for stated age with significant but chronic-appearing microvascular changes having a confluent appearance in the supratentorium. Atrophy also seen of both cerebellar hemispheres involving both lateral hemispheres. These findings appear similar to the prior exam performed in February 2017 without evolving space-occupying process or definite acute area of infarction. There is no evolving midline shift or int racranial hemorrhages seen. In particular, no subarachnoid hemorrhage is i dentified. No intra or extra-axial masses. Bone windows unremarkable. No s ignificant sinus disease is noted. No acute territorial infarction is seen . IMPRESSION: Atrophy and significant chronic microvascular changes. No definite evolving territorial infarction, spac e-occupying processes or intracranial hemorrhage Findings have been discussed with the Dr Grove in the emergency ro om on 05/31/18 at 6:29 PM. at 1830 Reported and signed by: Mag billy M.D. PAGE 1 Signed Report ( CONTINUED) Name: KATY ESTES : 1960 Age/S: 58 / F [address] [address] [place] U nit #: [id number] Loc: [place] [address] Phys: Sabrina Grove MD Acct: [id number] Dis Date: Status: PRE ER PHONE #: [phone] Exam Date: 05/31/2018 1811 FAX #: Reason: Code Stroke EXAMS: CPT: [id number] CT HEAD/BRAIN W/O CONT [id number] <Continued> CC: Sabrina Grove MD Technologist:Wilner Torrez, RT(R)(MR) CTDI: DLP: Trnscb Date/Time: 05/31/2018 (1829) t.[email or web address] Orig Print D/T: S: 05/31/2018 (1833) CTDI: DLP: PAGE 2 Signed Report RAD, SHOULDER, COMPLETE (MIN 2 VIEWS), [id number] 10:34:00Reason for exam:->FALLIs the patient ?->NoShould this be performed at the bedside?->NoFINAL REPORT Radiograph of the left shoulder Reason for exam: FALL Comparison: No priors Discussion: There is mild degenerative change at the left AC joint, and left glenohumeral joint. No displaced fracture, or di slocation is identified. Visualized soft tissues are unremarkable. Impressions: No acute osseous abnormality is identified. Signed: León Mcpherson Verified Date/Time: 05/22/2018 10:34:18 Reading Location: [facility]
[2019-07-03 18:16] LABS: CREATINE KINASE MB 9.9 ng/mL (0-5.0)
[2019-07-03] MEDS ORDERED: VITAMIN D35000 UNI2 PO (20:41)
[2019-07-04] VITALS (11 sets, daily range): BP systolic 107–137; BP diastolic 66–95
[2019-07-04] MEDS ORDERED: ONDANSETRON HCL INJ 2MG/ML 2ML 2 MG/ML VIAL IV PRN (00:30)
[2019-07-04] MEDS ORDERED: ACETAMINOPHEN 325 MG TAB PO PRN (00:30)
[2019-07-04] MEDS ORDERED: SODIUM CHLORIDE 0.9% 1000ML 1,000 ML ONE (00:49)
[2019-07-04] MEDS: SODIUM CHLORIDE 0.9% 1000ML 1,000 ML IV SCH ×3 (00:49→21:15)
[2019-07-04 05:23] LABS: HEMOGLOBIN 7.4 g/dL (12.0-16.0)
[2019-07-04 05:33] LABS: HEMATOCRIT 21.1 % (34.2-44.1)
[2019-07-04] MEDS ORDERED: RYTARY PO SCH (06:00)
[2019-07-04] MEDS: CLONIDINE HCL 0.1 MG TAB PO SCH ×3 (06:00→21:24)
[2019-07-04] MEDS ORDERED: [UNRECOGNIZED DRUG - OTHER] PO SCH (06:00)
[2019-07-04] MEDS: PANTOPRAZOLE 40 MG 10ML VIAL IV SCH ×2 (08:07→21:15)
[2019-07-04] MEDS: LOSARTAN POTASSIUM 100 MG TAB PO SCH (08:29)
[2019-07-04] MEDS: METOPROLOL TARTRATE 25 MG TAB PO SCH ×2 (08:29→21:15)
[2019-07-04] MEDS ORDERED: PANTOPRAZOLE 40 MG 10ML VIAL IV SCH (09:00)
[2019-07-04] MEDS ORDERED: SODIUM CHLORIDE 0.9% 250ML 250 ML IV NR (09:15)
[2019-07-04 09:51] LABS: BASOPHILS # (AUTO) 0.1 (0.0-0.1); BASOPHILS % 1.2 % (0.0-1.0); EOSINOPHILS # (AUTO) 0.4 (0.0-0.4); EOSINOPHILS % 3.1 % (0.0-6.0); HEMOGLOBIN 7.4 g/dL (12.0-16.0); LYMPHOCYTES # (AUTO) 3.7 (1.0-3.2); LYMPHOCYTES % 33.2 % (18.0-39.1); MEAN CORPUSCULAR HEMOGLOBIN 28.4 pg (28-32); MEAN CORPUSCULAR HGB CONC 35.4 g/dL (31-35); MEAN CORPUSCULAR VOLUME 80.1 fL (81-99); MONOCYTES # (AUTO) 2.1 (0.2-0.8); MONOCYTES % 18.9 % (4.4-11.3); NEUTROPHILS # (AUTO) 4.9 (2.1-6.9); NEUTROPHILS % 43.3 % (38.7-80.0); PLATELET COUNT 121 x10e3/uL (140-360); RED BLOOD COUNT 2.61 x10e6/uL (3.6-5.1); RED CELL DISTRIBUTION WIDTH 18.2 % (11.7-14.4)
[2019-07-04 09:57] LABS: HEMATOCRIT 20.9 % (34.2-44.1)
[2019-07-04 10:09] LABS: ALBUMIN 1.7 g/dL (3.5-5.0); ALBUMIN/GLOBULIN RATIO 0.4 (0.8-2.0); ANION GAP 10.5 mmol/L (8-16); CALCIUM 8.7 mg/dL (8.4-10.2); CREATININE, SERUM 3.98 mg/dL (0.57-1.11); POTASSIUM 4.5 mmol/L (3.5-5.1)
--- NOTE | 2019-07-04 10:36 | History and Physical ---
CHIEF COMPLAINT: "I have rectal bleeding." HISTORY OF PRESENT ILLNESS: This is a 59-year-old woman, who presents to [facility] Emergency Room with a 2-day history of bloody stools. The patient is on Eliquis and aspirin therapy. The patient states a month ago she had a stroke and since then it affected her memory. The patient was actually transferred from a local care home facility, namely the [facility] to [facility] because of rectal bleeding. In the emergency room, the patient was found to have a hemoglobin 6.6 g/dL; the patient was transfused 2 units of packed red blood cells, then today at 7.4 g/dL. Also, in the emergency room, the patient is found to have potassium 5.1. BUN and creatinine were 19 and 3.42 respectively. The patient has end-stage renal disease and undergoes hemodialysis 3 times a week. The patient's AST and ALT on admission were 689 and 471 respectively. Alkaline phosphatase level was 265. Creatine kinase level was 907 yesterday. Bilirubin is elevated at 3.3. Albumin was low at 1.8. On admission, she underwent a CT of the abdomen and pelvis with contrast that did not reveal any acute findings, but did reveal evidence of previous cholecystectomy. A 12-lead EKG performed in the emergency room, revealed a normal sinus rhythm. REVIEW OF SYSTEMS: GENERAL: Weight is stable. The patient states she has been more forgetful since her stroke a month ago. Denies any fever or chills. HEENT: No headaches. No visual changes. CARDIOVASCULAR/RESPIRATORY: Denies any chest pain, short of breath, or cough. GI: Complains of bloody stools for the last 2 days. Denies abdominal pain. : No UTI symptoms. The patient states urinates minimally since she is on dialysis. NEUROMUSCULAR: No limb weakness or numbness, but the patient states she has not walked in at least a month since her stroke. ALLERGIES: NO KNOWN DRUG ALLERGIES. PAST MEDICAL HISTORY: 1. Cerebrovascular disease (recent stroke). 2. Parkinson disease. 3. Mild cognitive impairment. 4. Paroxysmal atrial fibrillation. 5. Hypertensive heart disease. 6. End-stage renal disease. 7. Dyslipidemia. 8. Anemia, secondary to chronic kidney disease. 9. Chronic constipation, resolved. FAMILY HISTORY: Multiple members hypertensive heart disease, but no family members with end-stage renal disease. SOCIAL HISTORY: This woman is single. She lives with adult niece. She is disabled. No history of tobacco or alcohol use. The patient was hospitalized at [facility] for a week and then transferred to [facility] according to the patient. SURGICAL HISTORY: 1. Cholecystectomy. 2. Right subclavian hemodialysis catheter placement. MEDICATIONS: 1. Apixaban 5 mg b.i.d. 2. Aspirin 81 mg daily. 3. Atorvastatin 80 mg at bedtime. 4. Carbidopa/levodopa 23.75/95 one q.6 hours. 5. Vitamin D3 5000 units daily. 6. Clonidine 0.1 q.8 hours. 7. Colace 100 mg daily. 8. Losartan 100 mg daily. 9. Metoprolol tartrate 25 mg b.i.d. 10. Ondansetron 4 mg q.4 hours p.r.n. nausea, vomiting. 11. Polyethylene glycol 17 g daily. 12. Potassium chloride 20 mEq b.i.d. 13. Spironolactone 25 mg b.i.d. PHYSICAL EXAMINATION: GENERAL: She is awake, alert, and oriented. Seems to get confused easily, but she is very pleasant and cooperative. She does not appeared to be in any distress. VITAL SIGNS: Height 5 feet 0 inches, weight 135 pounds, BMI 26. Blood pressure is 120/80, pulse 76, respiratory rate 16, oxygen 99%, and temperature 98.7. INTEGUMENT: Skin is warm and dry. Slight pallor. No jaundice or diaphoresis. HEENT: Anicteric sclerae. Moist mucous membranes. NECK: Supple. CARDIOVASCULAR: Distant heart sounds. Regular rate and rhythm with a holosystolic murmur 4/6 intensity. S3 gallop appreciated. LUNGS: No rales. No rhonchi or wheezes. ABDOMEN: Soft. Normal bowel sounds. Nontender. EXTREMITIES: No deformity. NEUROLOGIC: She is bedbound. She seems to have right facial drooping, but no other focal deficits appreciated. DIAGNOSES: 1. Upxff-lf-uuolkiv anemia, secondary to gastrointestinal bleeding. 2. Acute gastrointestinal bleeding. 3. End-stage renal disease. 4. Hypertensive heart disease. 5. Rhabdomyolysis. 6. Obstructive jaundice. 7. Elevated hepatic transaminases. 8. Elevated troponin I level. 9. Parkinson disease. 10. Cerebrovascular accident (history of recent stroke according to the patient). PLAN: 1. Hold aspirin and apixaban since the patient having acute gastrointestinal bleeding. 2. Transfused another 2 units packed red blood cells. 3. Consult Nephrology since the patient will need hemodialysis today. 4. Consult Cardiology since she has had elevated troponin I levels. 5. Consult Gastroenterology for acute gastrointestinal bleeding. 6. We will hold spironolactone, losartan, and potassium chloride since the patient has mild hyperkalemia. 7. Restart carbidopa/levodopa for Parkinson disease. 8. Hold atorvastatin since the patient has elevated hepatic transaminases. 9. Order chest x-ray. 10. We will follow creatine kinase level. 11. Follow hemoglobin/hematocrit. 12. We will obtain records from [facility]. I spent 45 minutes in the care of this patient. MD JOHN Bangura/DANII /[id number] MTDD
--- NOTE | 2019-07-04 10:54 | Diagnostic Imaging Report ---
EXAMINATION: CHEST SINGLE (PORTABLE) INDICATION: ESRD and possible non elevated ST myocardial infarction COMPARISON: None FINDINGS: TUBES and LINES: Right IJ tunneled hemodialysis catheter terminates at the cavoatrial junction. LUNGS: Low lung volumes with central vascular congestion and mild interstitial opacities. No evidence of lobar pneumonia. PLEURA: No pleural effusion or pneumothorax. HEART AND MEDIASTINUM: The cardiomediastinal silhouette is unremarkable. There are atherosclerotic calcifications within the aorta. BONES AND SOFT TISSUES: No acute osseous lesion. Soft tissues are unremarkable. UPPER ABDOMEN: No free air under the diaphragm. IMPRESSION: Mild pulmonary interstitial edema. Signed by: Dr. Rush Crandall MD on 07/04/2019 10:50 AM
--- NOTE | 2019-07-04 11:20 | Consultation ---
DATE OF CONSULTATION: 07/04/2019 Nephrology Consultation Note REASON FOR CONSULTATION: ESRD. REFERRING PHYSICIAN: ER physician. HISTORY OF PRESENT ILLNESS: This is a 59-year-old female with past medical history of ESRD on hemodialysis on Saturday, , Saturday schedule with last dialysis two days ago; hypertension, was admitted with bleeding from rectum. Her hemoglobin was noted to be 6.6. At the time of my examination, she appeared in no acute distress and denied any headache, blurring of vision, chest pain, shortness of breath, cough, phlegm, fever, chills, abdominal pain, skin rash, joint pains, or any focal weakness, but did complain of bleeding for a couple of days now. PAST MEDICAL AND SURGICAL HISTORY: As above. PERSONAL AND SOCIAL HISTORY: No history of alcohol or tobacco. CURRENT MEDICATIONS: See the medication sheet that was reviewed. PHYSICAL EXAMINATION: GENERAL: She appeared in no acute distress. VITAL SIGNS: Blood pressure was 119/78, respirations 16, heart rate 75, temperature 98.7. HEENT: Head was atraumatic and normocephalic. Pupils were reactive to light. Mouth, oral mucosa was moist. NECK: Supple. CHEST: Revealed fair air entry. HEART: S1 and S2. ABDOMEN: Soft. Bowel sounds were positive. EXTREMITIES: Trace edema. TOUR ESCORT: She was awake and alert. Cranial nerves are intact. There was no gross motor deficit noted. LABS: White cell count 11.2, hemoglobin 7.4, it was 6.6 yesterday, hematocrit 20.9, platelets 121. Sodium 140, potassium 4.5, chloride 112, CO2 of 22, BUN 27, creatinine 3.9. IMPRESSION: 1. End-stage renal disease, on hemodialysis on Saturday, , Saturday schedule with no evidence of volume overload or hyperkalemia. 2. Gastrointestinal bleed with anemia. PLAN: Strict I's and O's. Hepatitis surface antigen, CBC and BMP in a.m. Epogen 10,000 units subcu after dialysis later today. She will be dialyzed for 3-1/2 hours. 140 sodium, 35 bicarbonate, 2 potassium, 2.5 calcium, 350-400 blood flow, 700-800 dialysis flow with UF of about 2 L as tolerated. She will also receive 2 units of packed RBCs on dialysis. Further recommendations to follow. Thank you for the consultation. MD NYA Cabrera /[id number]
[2019-07-04] MEDS: CARBIDOPA PO SCH ×3 (12:00→23:52)
[2019-07-04] MEDS: LEVODOPA PO SCH ×3 (12:00→23:52)
[2019-07-04 12:34] LABS: EOSINOPHILS % (MANUAL) 2 % (0-7); LYMPHOCYTES % (MANUAL) 30 % (19-48); MONOCYTES % (MANUAL) 15 % (3.4-9.0); NEUTROPHILS % (MANUAL) 53 % (40-74)
[2019-07-04] MEDS ORDERED: HEPARIN 500 UNITS/5ML MDV INJ PRN (15:15)
[2019-07-04] MEDS ORDERED: EPOETIN ALFA-EPBX 10,000 UNIT/ML VIAL SC SCH (18:00)
[2019-07-04 18:42] LABS: HEMOGLOBIN 10.8 g/dL (12.0-16.0)
[2019-07-04 18:58] LABS: INR 1.44; PROTHROMBIN TIME 18.5 seconds (11.9-14.5)
--- NOTE | 2019-07-04 19:07 | Consultation ---
DATE OF CONSULTATION: 07/04/2019 Cardiology Consultation REQUESTING PHYSICIAN: Tomas Perez MD REASON FOR CONSULTATION: Elevated troponin. HISTORY OF PRESENT ILLNESS: This is a 59-year-old woman with recent cerebrovascular accident, paroxysmal atrial fibrillation, hypertensive heart disease, hyperlipidemia, end-stage renal disease, on hemodialysis, who was transferred to [facility] due to rectal bleeding. In the ER, she was found to have a hemoglobin of 6.6, AST of 689, ALT of 471, and alkaline phosphatase of 265. Troponin was mildly elevated at 0.549 for which Cardiology is consulted for evaluation. The patient denies any chest pain, palpitations, or lightheadedness. She does report shortness of breath, but denies any fever or chills. REVIEW OF SYSTEMS: Negative except as per HPI. PAST MEDICAL HISTORY: 1. History of recent cerebrovascular accident. 2. Paroxysmal atrial fibrillation. 3. Hypertensive heart disease. 4. Hyperlipidemia. 5. End-stage renal disease, on hemodialysis. PAST SURGICAL HISTORY: 1. Cholecystectomy. 2. Dialysis catheter insertion. ALLERGIES: PLEASE SEE EMR. MEDICATIONS: Please see medication list. SOCIAL HISTORY: No tobacco or alcohol use. PHYSICAL EXAMINATION: VITAL SIGNS: Temperature 97.8 degrees, pulse 107, respiratory rate 20, blood pressure 123/95, and oxygen saturation 100% on room air. GENERAL: Awake, alert, well developed, well nourished, in no acute distress. HEENT: Normocephalic, atraumatic. Pupils are equal. No scleral icterus. NECK: Supple. No thyromegaly or cervical lymphadenopathy. No carotid bruits. LUNGS: Clear to auscultation bilaterally. No wheezes or crackles. CARDIOVASCULAR: Normal rate, regular rhythm. Normal S1, S2. ABDOMEN: Soft, nontender. EXTREMITIES: No edema. SKIN: Intact. LABORATORY DATA: WBC 11.25, hemoglobin 7.4, hematocrit 20.9, and platelets 121. Sodium 140, potassium 4.5, chloride 112, CO2 of 22, BUN 27, and creatinine 3.98. Troponin I 0.570. EKG normal sinus rhythm with prolonged QT. Chest x-ray, mild pulmonary interstitial edema. IMPRESSION: 1. Elevated troponin. 2. Mtmnk-xm-tdcogdf anemia, secondary to gastrointestinal bleeding. 3. Acute gastrointestinal bleeding. 4. Paroxysmal atrial fibrillation. 5. Hypertensive heart disease. 6. Hyperlipidemia. 7. End-stage renal disease, on hemodialysis. 8. Elevated LFTs. 9. History of cerebrovascular accident. RECOMMENDATIONS: Given the patient's acute bleeding. Hold anti-platelet therapy and anticoagulation. The patient's elevated troponin is not consistent with ACS, possibly secondary to acute anemia as well as end-stage renal disease. Obtain echocardiogram. Transfuse patient. Further evaluation of bleeding per GI. Check BNP. The patient would likely benefit from further ultrafiltration, given finding of pulmonary edema on chest x-ray. Volume management per Nephrology due to dialysis. Continue atorvastatin and metoprolol. Thank you for this consult. We will continue to follow. Sherly Avila MD ABS/MODL /[id number]
[2019-07-04 19:19] LABS: BLOOD UREA NITROGEN 12 mg/dL (7-26); BUN/CREATININE RATIO 6 (6-25); CARBON DIOXIDE 21 mmol/L (22-29); CHLORIDE 98 mmol/L (98-107); CREATININE, SERUM 2.08 mg/dL (0.57-1.11); EST GLOMERULAR FILTRATION RATE 30 ML/MIN (60-); GLUCOSE 60 mg/dL (74-118); SODIUM 138 mmol/L (136-145)
[2019-07-04 20:02] LABS: POTASSIUM > 10.0 mmol/L (3.5-5.1)
[2019-07-04 20:04] LABS: CALCIUM < 2.0 mg/dL (8.4-10.2)
[2019-07-04] MEDS ORDERED: ATORVASTATIN 20 MG TAB PO SCH (21:00)
[2019-07-04 22:13] LABS: ANION GAP 11.4 mmol/L (8-16); CALCIUM 8.3 mg/dL (8.4-10.2); CREATININE, SERUM 2.3 mg/dL (0.57-1.11); POTASSIUM 3.4 mmol/L (3.5-5.1)
[2019-07-04] MEDS ORDERED: DEXTROSE 50% SYRINGE 50 ML IV STA (23:05)
[2019-07-04] MEDS ORDERED: POTASSIUM CHLORIDE 20 MEQ TAB CR PO STA (23:05)
[2019-07-05] VITALS (10 sets, daily range): BP systolic 112–132; BP diastolic 70–90
[2019-07-05 00:13] LABS: HEMATOCRIT 27.7 % (34.2-44.1); HEMOGLOBIN 9.9 g/dL (12.0-16.0)
[2019-07-05] MEDS: LEVODOPA PO SCH ×4 (05:26→23:16)
[2019-07-05] MEDS: CARBIDOPA PO SCH ×4 (05:26→23:16)
[2019-07-05] MEDS: CLONIDINE HCL 0.1 MG TAB PO SCH ×3 (05:26→21:11)
[2019-07-05 06:17] LABS: HEMATOCRIT 25.9 % (34.2-44.1)
[2019-07-05 06:45] LABS: ALBUMIN 1.7 g/dL (3.5-5.0); ALBUMIN/GLOBULIN RATIO 0.4 (0.8-2.0); ANION GAP 10.7 mmol/L (8-16); CALCIUM 8.3 mg/dL (8.4-10.2); CREATININE, SERUM 2.75 mg/dL (0.57-1.11); POTASSIUM 3.7 mmol/L (3.5-5.1)
[2019-07-05 07:46] LABS: INR 1.55; PROTHROMBIN TIME 19.6 seconds (11.9-14.5)
[2019-07-05 08:28] LABS: FERRITIN 1867.69 ng/mL (4.63-204.00)
[2019-07-05] MEDS: PANTOPRAZOLE 40 MG 10ML VIAL IV SCH ×2 (09:00→21:11)
--- NOTE | 2019-07-05 09:44 | Progress Note ---
DATE: 07/05/2019 CHIEF COMPLAINT/HISTORY OF PRESENT ILLNESS: This is a 59-year-old woman, whose primary treating diagnosis is acute gastrointestinal bleeding. Nursing staff states that the patient had obvious bloody stools this morning. The patient has been transfused a total of 4 units of blood during this hospitalization. Hemoglobin today is 9 g/dL, last night it was 10.8 g/dL. The patient's BUN and creatinine today is 17 and 2.75 respectively. The patient is a dialysis patient. Serum iron 178 today. TIBC is 206. Percent iron saturation is 86. The patient's ferritin level is 1867. AST and ALT 506 and 102 respectively. Alkaline phosphatase 199. Creatine kinase levels 927. Troponin I level 0.545. The patient underwent chest x-ray yesterday on July 04, 2019, which revealed mild pulmonary interstitial edema. REVIEW OF SYSTEMS: As per HPI. PHYSICAL EXAMINATION: GENERAL: She is somnolent, but arousable. She looks very weak. She does not appear to be any acute respiratory distress. VITAL SIGNS: Blood pressure 110/72, pulse is 68, respiratory rate 16, temperature 98.9, and oxygen saturation 98% on room air. INTEGUMENT: Skin is warm and dry. She has slight pallor. She has slight jaundice. HEENT: Anicteric sclerae with moist mucous membranes. NECK: Supple. CARDIOVASCULAR: Distant heart sounds. Regular rate and rhythm with an S3 gallop. LUNGS: Ty faintly coarse breath sounds bilaterally. ABDOMEN: Benign. EXTREMITIES: No edema or deformity. NEUROLOGIC: She is bedbound. DIAGNOSES: 1. Acute gastrointestinal bleeding. 2. End-stage renal disease. 3. Rhabdomyolysis. 4. Paroxysmal atrial fibrillation. 5. History of cerebrovascular accident. 6. Obstructive jaundice. PLAN: 1. Agree with MRCP because the patient has obstructive jaundice. 2. Follow hemoglobin and hematocrit. 3. We will hold all anticoagulation medications. I spent 25 minutes in the care of this patient. MD JOHN Bangura/DANII /[id number] ELIZABETH
[2019-07-05] MEDS: LOSARTAN POTASSIUM 100 MG TAB PO SCH (10:00)
[2019-07-05] MEDS: METOPROLOL TARTRATE 25 MG TAB PO SCH ×2 (10:00→21:11)
--- NOTE | 2019-07-05 10:43 | Diagnostic Imaging Report ---
EXAM: MRI of the abdomen without contrast with MRCP INDICATION: Abdominal liver enzymes. Abdominal pain. Rectal bleeding.. COMPARISON: None. Correlation with CT abdomen pelvis dated 07/03/2019.. TECHNIQUE: Multiplanar and multisequence imaging was performed of the abdomen. T1 and T2-weighted images were obtained with and without contrast. T1-weighted in and [id number]. M.R.C.P. technique: Multiplanar, multisequence MRCP was performed, with sequences including coronal turbo spin-echo T1-weighted scans, [facility] MRCP scans, coronal spin, coronal MPR 2, [facility] 3D HR, [facility] MRCP PERALES. Discussion: Examination limited by image degradation by breathing motion artifact. LOWER THORAX: Unremarkable. HEPATOBILIARY: The common bile duct is mildly prominent measuring 3.8 cm in diameter without filling defects or strictures. No focal hepatic lesions. Mild central intrahepatic biliary dilatation. GALLBLADDER: Surgically absent. SPLEEN: No splenomegaly. PANCREAS: No focal masses or ductal dilatation. ADRENALS: Bilateral adrenal nodules are best visualized and characterized on the recent CT examination of the abdomen. KIDNEYS/URETERS: Kidneys enhance symmetrically. No hydronephrosis. No cystic or solid mass lesions. No stones. GI TRACT: No abnormal distention, wall thickening, or evidence of bowel obstruction. LYMPH NODES: No lymphadenopathy. VESSELS: Grossly unremarkable. PERITONEUM / RETROPERITONEUM: No free air or fluid. BONES: Unremarkable. SOFT TISSUES: Mild diffuse subcutaneous edema particularly Suggestive of anasarca. IMPRESSION: 1. Limited examination due to significant image degradation by breathing motion artifact. Within limitations, mild central intrahepatic biliary dilatation, possibly reflect reservoir effect status post cholecystectomy. 2. No definite choledocholithiasis. Signed by: Dr. Humera Cruz M.D. on 07/05/2019 10:40 AM
[2019-07-05] MEDS: SODIUM CHLORIDE 0.9% 1000ML 1,000 ML IV SCH ×3 (10:49→23:16)
[2019-07-05 12:26] LABS: HEMATOCRIT 26.6 % (34.2-44.1); HEMOGLOBIN 9.3 g/dL (12.0-16.0)
[2019-07-05] MEDS ORDERED: PEG (High)/E-LYTE SOLN 4,000 ML BTL PO NR (15:00)
[2019-07-05 18:00] LABS: HEMATOCRIT 25.7 % (34.2-44.1); HEMOGLOBIN 8.9 g/dL (12.0-16.0)
--- NOTE | 2019-07-05 18:15 | Progress Note ---
DATE: 07/05/2019 Cardiology Progress Note. SUBJECTIVE: The patient denies chest pain or shortness of breath. The patient was reported to have bloody stools this morning. OBJECTIVE: VITAL SIGNS: Temperature 98.2 degrees, pulse 70, respiratory rate 18, blood pressure 132/70, oxygen saturation 98% on room air. GENERAL: Awake, alert, in no acute distress. LUNGS: Clear to auscultation bilaterally. No wheezes or crackles. CARDIOVASCULAR: Normal rate, regular rhythm. No murmur. Normal S1, S2. ABDOMEN: Soft, nontender. EXTREMITIES: No edema. CARDIAC MEDICATIONS: 1. Clonidine 0.1 mg p.o. q.8 hours. 2. Metoprolol tartrate 25 mg p.o. q.12 hours. 3. Losartan 100 mg p.o. daily. 4. Atorvastatin 80 mg p.o. at bedtime. LABORATORY DATA: Hemoglobin 9.3, hematocrit 26.6. Sodium 137, potassium 3.7, chloride 106, CO2 of 24, BUN 17, and creatinine 2.75, AST 506, ALT 102, alkaline phosphatase 199. Troponin 0.545. IMAGING: Telemetry was personally reviewed and interpreted, revealing normal sinus rhythm. IMPRESSION: 1. Acute anemia secondary to GI bleeding. 2. Acute GI bleeding. 3. Elevated troponin. 4. Paroxysmal atrial fibrillation. 5. Hypertensive heart disease. 6. Hyperlipidemia. 7. End-stage renal disease, on hemodialysis. 8. History of cerebrovascular accident. 9. Elevated LFTs. RECOMMENDATIONS: Given patient's acute bleeding, we will hold anti-platelet therapy and anticoagulation at this time. The patient's elevated troponin is not consistent with ACS, possibly secondary to acute anemia as well as end-stage renal disease, obtain echocardiogram. Transfuse as necessary. Evaluation of bleeding and elevated LFTs per GI. Volume management per Nephrology as the patient is on hemodialysis. Continue current antihypertensive therapy. Given abnormal LFTs, we will hold atorvastatin for now. Thank you for this consult. We will continue to follow. Sherly Avila MD ABS/MODL /[id number]
[2019-07-05] MEDS ORDERED: CITRATE OF MAGNESIA 300ML BOTTLE PO ONE (23:00)
[2019-07-06] VITALS (9 sets, daily range): BP systolic 110–139; BP diastolic 67–80
[2019-07-06] MEDS ORDERED: CITRATE OF MAGNESIA 300ML BOTTLE PO ONE
[2019-07-06] MEDS: CLONIDINE HCL 0.1 MG TAB PO SCH ×3 (05:28→22:29)
[2019-07-06] MEDS: CARBIDOPA PO SCH ×4 (05:28→19:30)
[2019-07-06] MEDS: LEVODOPA PO SCH ×4 (05:28→19:30)
[2019-07-06 05:46] LABS: BASOPHILS # (AUTO) 0.1 (0.0-0.1); BASOPHILS % 0.8 % (0.0-1.0); EOSINOPHILS # (AUTO) 0.3 (0.0-0.4); EOSINOPHILS % 2.8 % (0.0-6.0); HEMATOCRIT 25.9 % (34.2-44.1); HEMOGLOBIN 8.9 g/dL (12.0-16.0); LYMPHOCYTES # (AUTO) 3.2 (1.0-3.2); LYMPHOCYTES % 27.2 % (18.0-39.1); MEAN CORPUSCULAR HEMOGLOBIN 28.6 pg (28-32); MEAN CORPUSCULAR HGB CONC 34.4 g/dL (31-35); MONOCYTES # (AUTO) 1.8 (0.2-0.8); NEUTROPHILS # (AUTO) 6.4 (2.1-6.9); NEUTROPHILS % 53.9 % (38.7-80.0); PLATELET COUNT 102 x10e3/uL (140-360); RED BLOOD COUNT 3.11 x10e6/uL (3.6-5.1); RED CELL DISTRIBUTION WIDTH 17.9 % (11.7-14.4)
[2019-07-06 05:48] LABS: MEAN CORPUSCULAR VOLUME 83.3 fL (81-99)
[2019-07-06 06:30] LABS: ALBUMIN 1.8 g/dL (3.5-5.0); ALBUMIN/GLOBULIN RATIO 0.4 (0.8-2.0); ANION GAP 11.3 mmol/L (8-16); CALCIUM 8.7 mg/dL (8.4-10.2); CREATININE, SERUM 3.47 mg/dL (0.57-1.11); POTASSIUM 3.3 mmol/L (3.5-5.1)
[2019-07-06] MEDS ORDERED: SOD PHOSPHATE PR PRN (07:00)
[2019-07-06] MEDS ORDERED: [UNRECOGNIZED DRUG - OTHER] PR PRN (07:00)
[2019-07-06] MEDS ORDERED: SOD PHOSPHATE/SOD BIPHOSPHATE ENEMA 132 ML BTL PR PRN (07:15)
[2019-07-06 07:44] LABS: INR 1.48; PROTHROMBIN TIME 18.9 seconds (11.9-14.5)
[2019-07-06 07:45] LABS: PARTIAL THROMBOPLASTIN TIME 41.1 seconds (23.8-35.5)
[2019-07-06] MEDS: LOSARTAN POTASSIUM 100 MG TAB PO SCH (08:41)
[2019-07-06] MEDS: PANTOPRAZOLE 40 MG 10ML VIAL IV SCH ×2 (08:41→19:29)
[2019-07-06] MEDS: METOPROLOL TARTRATE 25 MG TAB PO SCH ×2 (08:41→22:29)
[2019-07-06] MEDS: SODIUM CHLORIDE 0.9% 1000ML 1,000 ML IV SCH ×2 (11:35→22:30)
[2019-07-06 12:04] LABS: HEMATOCRIT 25.6 % (34.2-44.1); HEMOGLOBIN 8.6 g/dL (12.0-16.0)
[2019-07-06] MEDS ORDERED: POTASSIUM CHLORIDE 20 MEQ TAB CR PO SCH (15:30)
[2019-07-06] MEDS: SODIUM BICARBONATE 650 MG TAB PO SCH (16:38)
[2019-07-06] MEDS ORDERED: BISACODYL 5 MG TAB EC PO SCH ×5 (18:30→20:30)
--- NOTE | 2019-07-06 18:58 | Progress Note ---
DATE: 07/06/2019 SUBJECTIVE: The patient denies chest pain or shortness of breath. OBJECTIVE: VITAL SIGNS: Temperature 97.9, pulse 57, respiratory rate 20, blood pressure 121/71, and oxygen saturation 100% on room air. GENERAL: Awake, alert, in no acute distress. LUNGS: Clear to auscultation bilaterally. No wheezes or crackles. CARDIOVASCULAR: Normal rate. Regular rhythm. No murmur. Normal S1, S2. ABDOMEN: Nontender. EXTREMITIES: No edema. CARDIAC MEDICATIONS: 1. Metoprolol tartrate 25 mg p.o. q.12 hours. 2. Losartan 100 mg p.o. daily. 3. Clonidine 0.1 mg p.o. q.8 hours. LABORATORY DATA: WBC 11.8, hemoglobin 8.9, hematocrit 25.9, and platelets 102. Sodium 139, potassium 3.3, chloride 112, CO2 19, BUN 24, and creatinine 3.47. AST 412, ALT 189, and alkaline phosphatase 198. Telemetry was personally reviewed and interpreted revealing normal sinus rhythm. IMPRESSION: 1. Acute anemia secondary to gastrointestinal bleeding. 2. Acute gastrointestinal bleeding. 3. Elevated troponin. 4. Paroxysmal atrial fibrillation. 5. Hypertensive heart disease. 6. Hyperlipidemia. 7. End-stage renal disease, on hemodialysis. 8. History of cerebrovascular accident. 9. Elevated LFTs. RECOMMENDATIONS: Given the patient's acute bleeding, we will hold anti-platelet therapy and anticoagulation at this time. The patient's troponin elevation is not consistent with ACS, possibly secondary to acute anemia as well as end-stage renal disease. Obtain echocardiogram. We will review images once available. Transfuse as necessary. Evaluation of bleeding and elevated LFTs per GI. Volume management per Nephrology given the patient is on hemodialysis. Continue current antihypertensive therapies. Blood pressure is well controlled, atorvastatin pending further evaluation of elevated LFTs. We will continue. Sherly Avila MD ABS/MODL /[id number]
[2019-07-06 19:27] LABS: HEMATOCRIT 23.1 % (34.2-44.1)
[2019-07-07] VITALS: BP 126/85
[2019-07-07] MEDS: LEVODOPA PO SCH ×3 (01:54→18:00)
[2019-07-07] MEDS: CARBIDOPA PO SCH ×3 (01:54→18:00)
[2019-07-07 04:00] VITALS: BP 132/73
[2019-07-07 05:56] LABS: BASOPHILS # (AUTO) 0.1 (0.0-0.1); BASOPHILS % 0.8 % (0.0-1.0); EOSINOPHILS # (AUTO) 0.2 (0.0-0.4); EOSINOPHILS % 2.6 % (0.0-6.0); HEMATOCRIT 23.2 % (34.2-44.1); HEMOGLOBIN 8.1 g/dL (12.0-16.0); LYMPHOCYTES # (AUTO) 2.5 (1.0-3.2); LYMPHOCYTES % 32.3 % (18.0-39.1); MEAN CORPUSCULAR HGB CONC 34.9 g/dL (31-35); MEAN CORPUSCULAR VOLUME 83.2 fL (81-99); MONOCYTES % 13.1 % (4.4-11.3); NEUTROPHILS # (AUTO) 3.9 (2.1-6.9); NEUTROPHILS % 50.8 % (38.7-80.0); PLATELET COUNT 104 x10e3/uL (140-360); RED BLOOD COUNT 2.79 x10e6/uL (3.6-5.1); RED CELL DISTRIBUTION WIDTH 17.9 % (11.7-14.4)
[2019-07-07] MEDS: CLONIDINE HCL 0.1 MG TAB PO SCH ×3 (06:00→22:00)
[2019-07-07 08:04] VITALS: BP 132/73
[2019-07-07 08:11] VITALS: BP 116/68
[2019-07-07] MEDS: PANTOPRAZOLE 40 MG 10ML VIAL IV SCH ×2 (08:57→23:56)
[2019-07-07] MEDS: SODIUM BICARBONATE 650 MG TAB PO SCH ×2 (09:00→17:37)
[2019-07-07] MEDS: METOPROLOL TARTRATE 25 MG TAB PO SCH ×2 (09:00→21:00)
[2019-07-07] MEDS: LOSARTAN POTASSIUM 100 MG TAB PO SCH (09:00)
[2019-07-07] MEDS ORDERED: SODIUM CHLORIDE 0.9% 500ML 500 ML ONE (10:38)
--- NOTE | 2019-07-07 12:26 | Progress Note ---
DATE: 07/07/2019 Cardiology Progress Note SUBJECTIVE: The patient denies chest pain or shortness of breath. She complains of feeling tired today. OBJECTIVE: VITAL SIGNS: Temperature 97.6 degrees, respiratory rate 16, and blood pressure 116/60, and oxygen saturation 97%. GENERAL: Awake, alert, in no acute distress. LUNGS: Clear to auscultation bilaterally. No wheezes or crackles. CARDIOVASCULAR: Normal rate, regular rhythm. A 3/6 systolic murmur at the left lower sternal border. Normal S1, S2. ABDOMEN: Soft, nontender. EXTREMITIES: No edema. CARDIAC MEDICATIONS: 1. Metoprolol tartrate 25 mg p.o. q.12 hours. 2. Losartan 100 mg p.o. daily. LABORATORY DATA: WBC 7.7, hemoglobin 8.1, hematocrit 22.2, and platelets 104. IMPRESSION: 1. Acute anemia, secondary to gastrointestinal bleeding. 2. Acute gastrointestinal bleeding. 3. Elevated troponin. 4. Paroxysmal atrial fibrillation. 5. Hypertensive heart disease. 6. Hyperlipidemia. 7. End-stage renal disease, on hemodialysis. 8. History of cerebrovascular accident. 9. Elevated LFTs. RECOMMENDATIONS: Given the patient's acute bleeding, we will hold antiplatelet therapy, anticoagulation at this time. The patient's troponin elevation is not consistent with ACS, possibly secondary to acute anemia as well as end-stage renal disease. Obtain echo, we will review images once available. Transfuse as necessary. Evaluation of bleeding and elevated LFTs per GI. Volume management per Nephrology, given the patient is on hemodialysis. Continue current antihypertensive therapies. Blood pressure is well controlled and atorvastatin is on hold due to elevated LFTs. Consider re-initiation as LFTs improved. Thank you for this consult. We will continue to follow. Sherly Avila MD ABS/MODL /[id number]
[2019-07-07 16:02] VITALS: BP 126/67
[2019-07-07] MEDS ORDERED: PROPOFOL IV EMULSION 10 MG/ML 50 ML VIAL ONE (18:58)
[2019-07-07] MEDS ORDERED: SODIUM CHLORIDE 0.9% 1000ML 2,000 ML ONE (19:06)
[2019-07-07 20:00] VITALS: BP 109/60
[2019-07-07] MEDS ORDERED: HEPARIN 25,000 UNIT DRIP IV ONE (22:53)
[2019-07-07] MEDS ORDERED: HEPARIN SOD (PORCINE) 5,000 UNIT/ML VIAL ONE (23:33)
[2019-07-08] VITALS: BP 112/62
[2019-07-08] MEDS: LEVODOPA PO SCH ×3 (00:01→12:00)
[2019-07-08] MEDS: CARBIDOPA PO SCH ×3 (00:01→12:00)
[2019-07-08] MEDS: CLONIDINE HCL 0.1 MG TAB PO SCH ×2 (06:00→14:00)
[2019-07-08 08:02] VITALS: BP 127/83
[2019-07-08 08:35] VITALS: BP 127/83
[2019-07-08] MEDS: SODIUM BICARBONATE 650 MG TAB PO SCH ×2 (09:00→15:56)
[2019-07-08] MEDS: PANTOPRAZOLE 40 MG 10ML VIAL IV SCH (09:00)
[2019-07-08] MEDS: METOPROLOL TARTRATE 25 MG TAB PO SCH (09:00)
[2019-07-08] MEDS: LOSARTAN POTASSIUM 100 MG TAB PO SCH (09:00)
[2019-07-08 12:04] VITALS: BP 122/69
[2019-07-08 16:02] VITALS: BP 107/65
--- NOTE | 2019-07-08 17:27 | Operative Report ---
DATE OF PROCEDURE: 07/07/2019 SURGEON: Adalberto Carlson MD PROCEDURE: Colonoscopy with fulguration of AVMs. INDICATIONS FOR COLONOSCOPY: Rectal bleeding. MEDICATIONS: The patient was done under MAC, please see anesthesiologist's note. PROCEDURE IN DETAIL: With the patient in left lateral decubitus position, a flexible fiberoptic Olympus colonoscope was inserted into the rectum with ease and advanced all the way to the cecum. Multiple AVMs were noted in the ascending colon, some of which were actively bleeding and those were fulgurated with a size 10-Ukrainian . A single diverticulum is noted in the ascending colon. Transverse, descending, sigmoid and rectum grossly appeared to be within normal limits. The scope was then retroflexed into the distal rectum and the area around the dentate line appeared to be within normal limits. The scope was then straightened out, it was subsequently withdrawn. The patient tolerated the procedure well. IMPRESSION: 1. Multiple arteriovenous malformations, ascending colon, some actively bleeding were fulgurated with a size 10-Ukrainian . 2. Diverticulosis, minimal. PLAN: Follow H and H. Adalberto Carlson MD [facility] [place]/[facility] /[id number] cc: MD Jonel Weber MD
--- NOTE | 2019-07-08 19:42 | Progress Note ---
DATE: 07/08/2019 Cardiology Progress Note SUBJECTIVE: The patient denies chest pain or shortness of breath. OBJECTIVE: VITAL SIGNS: Temperature 98.1 degrees, pulse 61, respiratory rate 20, blood pressure 122/69, oxygen saturation 98% on room air. GENERAL: Awake, alert, in no acute distress. LUNGS: Clear to auscultation bilaterally. No wheezes or crackles. CARDIOVASCULAR: Normal rate, regular rhythm. A 2/6 systolic murmur in the left lower sternal border. Normal S1 and S2. ABDOMEN: Soft and nontender. EXTREMITIES: No edema. CARDIAC MEDICATIONS: Clonidine 0.1 mg p.o. q.8 hours, metoprolol tartrate 25 mg p.o. q.12 hours, losartan 100 mg p.o. daily. LABORATORY DATA: None. IMPRESSION: 1. Acute anemia secondary to gastrointestinal bleeding. 2. Acute gastrointestinal bleeding. 3. Elevated troponin. 4. Paroxysmal atrial fibrillation. 5. Hypertensive heart disease. 6. Hyperlipidemia. 7. End-stage renal disease, on hemodialysis. 8. History of cerebrovascular accident. 9. Elevated LFTs. RECOMMENDATIONS: Given the patient's acute bleeding, we will hold antiplatelet therapy and anticoagulation at this time. The patient's troponin elevation is not consistent with ACS, possibly secondary to acute anemia as well as end-stage renal disease. Transfuse for goal hemoglobin greater than 8. Evaluation of bleeding and elevated LFTs per GI. Volume management per Nephrology given the patient is on hemodialysis. Continue current antihypertensive therapy. Blood pressure is well controlled. Atorvastatin is currently on hold due to elevated LFTs, resume as LFTs improve. Thank you for this consult. We will continue to follow. Sherly Avila MD ABS/MODL /[id number]
== END 2019-07-08 16:20 | DRG 377 ==
LOC: ER 13:18 → EDBD 13:18 → ERHOLD 15:24 → ICU 07-04 00:30 → IMCU 07-04 08:54 → MED/SURG2 07-06 14:35
PROC: 30243N1 Transfusion of Nonautologous Red Blood Cells into Central Vein, Percutaneous Approach (ICD-10-PCS; principal; 2019-07-03)
PROC: 5A1D70Z Performance of Urinary Filtration, Intermittent, Less than 6 Hours Per Day (ICD-10-PCS; 2019-07-04)
PROC: 0W3P8ZZ Control Bleeding in Gastrointestinal Tract, Via Natural or Artificial Opening Endoscopic (ICD-10-PCS; 2019-07-07)
DX: K55.21 Angiodysplasia of colon with hemorrhage (principal); N18.6 End stage renal disease; K83.1 Obstruction of bile duct; M62.82 Rhabdomyolysis; I13.11 Hypertensive heart and chronic kidney disease without heart failure, with stage 5 chronic kidney disease, or end stage renal disease; D62 Acute posthemorrhagic anemia; I24.9 Acute ischemic heart disease, unspecified; Z86.73 Personal history of transient ischemic attack (TIA), and cerebral infarction without residual deficits; Z99.2 Dependence on renal dialysis; G20 Parkinson's disease; E78.5 Hyperlipidemia, unspecified; E87.6 Hypokalemia; K57.30 Diverticulosis of large intestine without perforation or abscess without bleeding; I48.0 Paroxysmal atrial fibrillation; Z79.01 Long term (current) use of anticoagulants; E87.5 Hyperkalemia
CPT/HCPCS: 36415; 44391; 71045; 74177; 74181; 80048; 80053; 82550; 82553; 82607; 82728; 82746; 83540; 83880; 84466; 84484; 85014; 85018; 85025; 85045; 85610; 85730; 86850; 86900; 86920; 87340; 93005; 93306; 96361; 99285; J1644; J2405; J7030; J7040; J7050; J7799; P9016; Q9967

== ENCOUNTER 2019-09-15 07:35 | Inpatient (IN) | payer OTHER ==
[~2019-09-15] VITALS: Ht 167.6 cm; Wt 68.5 kg
[~2019-09-15 07:35] MED LIST: ASPIR 8181 MG PO; ATORVASTATIN CA20 MG PO; CLONIDINE HCL0.1 MG PO; DOCUSATE SODIU100 MG PO; ELIQUIS5 MG PO; LOSARTAN POTAS100 MG PO; METOPROLOL TART25 MG PO; ONDANSETRON2 MG/1 ML PO; POLYETHYLENE GL17 GM PO; POTASSIUM CHLO20 ME1 PO; RYTARY ER 23.71 EACH PO; SPIRONOLACTONE25 MG PO; VITAMIN D35000 UNI2 PO
--- NOTE | 2019-09-15 07:48 | Emergency Department Note ---
History of Present Illnes History of Present Illness Chief Complaint: COVID PUI History of Present Illness This is a 59 year old [place] [facility] with noted low oxygen saturation of 58% on RA per EMS . Arrival Mode: [place] Onset (how long ago): second(s) Severity: mild Onset quality: sudden Duration (how long): hour(s) Timing of current episode: constant Progression: worsening Chronicity: new Relieving factors: none Exacerbating factors: none Associated symptoms: Reports fever/chills, Reports weakness Treatments prior to arrival: none Past Medical/Family History Physician Review I have reviewed the patient's past medical and family history. Any updates have been documented here. Past Medical History Recent Fever: Yes Clinical Suspicion of Infectio: Yes New/Unexplained Change in Ment: No Past Medical History: Hypertension, A-Fib, ESRD, Hemodyalisis, Anemia, Hyperlipedemia, Chronic Kidney Disease Other Medical History: [place] Social History Smoking Cessation: Never Smoker Alcohol Use: None Any Illegal Drug Use: No Review of Systems Review of Systems Constitutional: Reports fever, Reports weakness EENTM: Reports no symptoms Cardiovascular: Reports no symptoms Respiratory: Reports no symptoms Gastrointestinal: Reports no symptoms Genitourinary: Reports no symptoms Musculoskeletal: Reports no symptoms Integumentary: Reports no symptoms Neurological: Reports no symptoms Psychological: Reports no symptoms Endocrine: Reports no symptoms Hematological/Lymphatic: Reports no symptoms Physical Exam Related Data Allergies: Coded Allergies: No Known Allergies (Unverified , 07/03/19) Triage Vital Signs Date Time Temp Pulse Resp B/P (MAP) Pulse Ox O2 Delivery O2 Flow Rate FiO2 09/15/19 15:42 98.8 54 20 172/86 97 Vital signs reviewed: Yes Physical Exam CONSTITUTIONAL Constitutional: Present morbidly obese, Present ill appearing HENT HENT: Present normocephalic, Present atraumatic, Present oropharynx clear/moist, Present nose normal HENT L/R: Present left ext ear normal, Present right ext ear normal EYES Eyes: Reports PERRL, Reports conjunctivae normal NECK Neck: Present ROM normal PULMONARY Pulmonary: Present effort normal, Present breath sounds normal CARDIOVASCULAR Cardiovascular: Present regular rhythm, Present heart sounds normal, Present capillary refill normal, Present normal rate GASTROINTESTINAL Abdominal: Present soft, Present nontender, Present bowel sounds normal GENITOURINARY Genitourinary: Present exam deferred SKIN Skin: Present warm, Present dry MUSCULOSKELETAL Musculoskeletal: Present ROM normal NEUROLOGICAL Neurological: Present alert, Present oriented x 3, Present no gross motor or sensory deficits PSYCHOLOGICAL Psychological: Present mood/affect normal, Present judgement normal Results Laboratory Lab results reviewed: Yes Laboratory comments Laboratory Tests Test 09/15/19 09:42 09/15/19 07:59 Venous Blood pH 7.460 (7.35-7.38) Venous Blood Partial Pressure CO2 41.8 (44-48) Venous Blood Partial Pressure O2 65 (40-41) Venous Blood HCO3 29.7 (21-22) Venous Blood Total Carbon Dioxide 31 Venous Blood Oxygen Saturation 93 Venous Blood Base Excess 6 FiO2 % White Blood Count 4.01 x10e3/uL (4.8-10.8) Red Blood Count 3.48 x10e6/uL (3.6-5.1) Hemoglobin 9.8 g/dL (12.0-16.0) Hematocrit 28.6 % (34.2-44.1) Mean Corpuscular Volume 82.2 fL (81-99) Mean Corpuscular Hemoglobin 28.2 pg (28-32) Mean Corpuscular Hemoglobin Concent 34.3 g/dL (31-35) Red Cell Distribution Width 17.0 % (11.7-14.4) Platelet Count 142 x10e3/uL (140-360) Neutrophils (%) (Auto) 53.7 % (38.7-80.0) Lymphocytes (%) (Auto) 35.4 % (18.0-39.1) Monocytes (%) (Auto) 10.2 % (4.4-11.3) Eosinophils (%) (Auto) 0.0 % (0.0-6.0) Basophils (%) (Auto) 0.5 % (0.0-1.0) Neutrophils # (Auto) 2.2 (2.1-6.9) Lymphocytes # (Auto) 1.4 (1.0-3.2) Monocytes # (Auto) 0.4 (0.2-0.8) Eosinophils # (Auto) 0.0 (0.0-0.4) Basophils # (Auto) 0.0 (0.0-0.1) Absolute Immature Granulocyte (auto 0.01 x10e3/uL (0-0.1) Sodium Level 143 mmol/L (136-145) Potassium Level 2.5 mmol/L (3.5-5.1) Chloride Level 104 mmol/L (98-107) Carbon Dioxide Level 27 mmol/L (22-29) Anion Gap 14.5 mmol/L (8-16) Blood Urea Nitrogen 26 mg/dL (7-26) Creatinine 2.31 mg/dL (0.57-1.11) Estimat Glomerular Filtration Rate 26 ML/MIN (60-) BUN/Creatinine Ratio 11 (6-25) Glucose Level 117 mg/dL (74-118) Lactic Acid Level 1.7 mmol/L (0.5-2.0) Calcium Level 8.6 mg/dL (8.4-10.2) Total Bilirubin 2.0 mg/dL (0.2-1.2) Aspartate Amino Transf (AST/SGOT) 136 IU/L (5-34) Alanine Aminotransferase (ALT/SGPT) 38 IU/L (0-55) Alkaline Phosphatase 123 IU/L (40-150) Creatine Kinase 345 IU/L (29-168) Creatine Kinase MB 2.00 ng/mL (0-5.0) Troponin I 0.260 ng/mL (0-0.300) Total Protein 7.1 g/dL (6.5-8.1) Albumin 2.4 g/dL (3.5-5.0) Globulin 4.7 g/dL (2.3-3.5) Albumin/Globulin Ratio 0.5 (0.8-2.0) Coronavirus (PCR) Detected (NOTDETECTED) Imaging Imaging results reviewed: Yes Impressions [place] [address] Patient Name: KATY ESTES MR #: [id number] : 1960 Age/Sex: 59/F Req #: [id number] Adm Physician: Ordered by: STEF MARCUS DO Report #: [id number] Location: ER Room/Bed: Procedure: [id number] DX/CHEST SINGLE (PORTABLE) Exam Date: 09/15/19 Exam Time: 1030 REPORT STATUS: Signed EXAM: CHEST SINGLE (PORTABLE) DATE: 09/15/2019 10:30 AM INDICATION: Hypoxemia COMPARISON: 07/04/2019 FINDINGS: Right IJ tunneled dialysis catheter identified in stable position. The trachea is midline. There are increased patchy airspace opacities identified within throughout the lungs bilaterally. There is no evidence for lobar consolidation, pneumothorax, or significant. The cardiomediastinal silhouette is stable in appearance. No acute osseous abnormality is identified. IMPRESSION: Patchy increased airspace opacities identified bilaterally which are nonspecific but can be seen in the setting of an atypical/viral pneumonitis. Signed by: Dr. Jason Cottrell MD on 09/15/2019 11:10 AM Dictated By: JASON COTTRELL MD [id number] Transcribed By: KEESHA on 09/15/19 1110 COPY TO: STEF MARCUS DO~ Critical Care Time Total Critical Care Time (min): 31 Critcal care necessary due to: respiratory failure Critcal care time spent by me: develop tx plan w patient/surrogate, discussion w consultants, discussion w primary provider, examination of patient, obtaining hx from patient/surrogate, order/perform tx or interventions, order/review laboratory studies, pulse oximetry, re-evaluation of patient condition Assessment & Plan Medical Decision Making MDM 59 yof presents with new onset of hypoxia. Diff dx: CHF, ACS, PE, COVID-19 infection. Patient (+) for COVID-19. Plan to admit for continous pulse ox monitoring Assessment & Plan Final Impression: (1) Upper respiratory tract infection due to COVID-19 virus (2) Hypoxia (3) Renal failure (4) Hypokalemia (5) Hypertensive urgency Depart Disposition: ADMITTED Home Meds Reported Medications Cholecalciferol (Vitamin D3) (Vitamin D3) 5,000 Unit Tab.rapdis, 5000 UNIT PO HS 07/03/19 Spironolactone (SPIRONOLACTONE) 25 Mg Tablet, 25 MG PO BID, #60 TAB 07/03/19 Carbidopa/Levodopa (Rytary ER 23.75 mg-95 mg Cap) 1 Each Capsule.er, 1 CAP PO Q6H 07/03/19 Potassium Chloride (POTASSIUM CHLORIDE) 20 Meq Tab.er.prt, 20 MG PO Q12H 07/03/19 Polyethylene Glycol 3350 (POLYETHYLENE GLYCOL 3350) 17 Gm Powd.pack, 17 GM PO DAILY, PACKET 07/03/19 Ondansetron Hcl (ONDANSETRON HCL) 2 Mg/1 Ml Vial, 4 MG PO Q4HR for NAUSEA, VIAL 07/03/19 Metoprolol Tartrate (METOPROLOL TARTRATE) 25 Mg Tablet, 25 MG PO Q12H, TAB 07/03/19 Losartan Potassium (LOSARTAN POTASSIUM) 100 Mg Tablet, 100 MG PO DAILY, TAB 07/03/19 Apixaban (Eliquis) 5 Mg Tablet, 5 MG PO Q12H 07/03/19 Docusate Sodium (DOCUSATE SODIUM) 100 Mg Capsule, 100 MG PO Q12H, CAP 07/03/19 Clonidine Hcl (CLONIDINE HCL) 0.1 Mg Tablet, 1 TAB PO Q8H, #60 TAB 07/03/19 Atorvastatin Calcium (ATORVASTATIN CALCIUM) 20 Mg Tablet, 80 MG PO HS, #30 TAB 07/03/19 Aspirin (ASPIR 81) 81 Mg Tablet.dr, 1 MG PO DAILY 07/03/19 Medications in the ED Potassium Chloride 100 ml @ 100 mls/hr ONCE ONCE IV Last administered on 09/15/19at 10:42; Admin Dose 100 MLS/HR; Start 09/15/19 at 09:30; Stop 09/15/19 at 10:29; Status DC Sodium Chloride 250 ml @ STK-MED ONCE .ROUTE ; Start 09/15/19 at 10:14; Stop 09/15/19 at 10:09; Status DC Hydralazine HCl 10 mg NOW IV Last administered on 09/15/19at 13:00; Admin Dose 10 MG; Start 09/15/19 at 12:45; Stop 09/15/19 at 13:59; Status DC Aspirin 81 mg PRN ONCE PO ; Start 09/15/19 at 17:45; Stop 09/15/19 at 18:21; Status DC STEF MARCUS DO Sep 15, 2019 07:48
[2019-09-15 08:13] LABS: BASOPHILS % 0.5 % (0.0-1.0); HEMATOCRIT 28.6 % (34.2-44.1); HEMOGLOBIN 9.8 g/dL (12.0-16.0); LYMPHOCYTES # (AUTO) 1.4 (1.0-3.2); LYMPHOCYTES % 35.4 % (18.0-39.1); MEAN CORPUSCULAR HEMOGLOBIN 28.2 pg (28-32); MEAN CORPUSCULAR HGB CONC 34.3 g/dL (31-35); MEAN CORPUSCULAR VOLUME 82.2 fL (81-99); MONOCYTES # (AUTO) 0.4 (0.2-0.8); MONOCYTES % 10.2 % (4.4-11.3); NEUTROPHILS # (AUTO) 2.2 (2.1-6.9); NEUTROPHILS % 53.7 % (38.7-80.0); PLATELET COUNT 142 x10e3/uL (140-360); RED BLOOD COUNT 3.48 x10e6/uL (3.6-5.1)
[2019-09-15 08:41] LABS: ALBUMIN 2.4 g/dL (3.5-5.0); ALBUMIN/GLOBULIN RATIO 0.5 (0.8-2.0); ANION GAP 14.5 mmol/L (8-16); CALCIUM 8.6 mg/dL (8.4-10.2); CREATININE, SERUM 2.31 mg/dL (0.57-1.11)
[2019-09-15 08:42] LABS: POTASSIUM 2.5 mmol/L (3.5-5.1)
[2019-09-15] MEDS ORDERED: POTASSIUM CHLORIDE 10MEQ/100ML 100 ML IV ONE (09:30)
[2019-09-15] MEDS ORDERED: SODIUM CHLORIDE 0.9% 250ML 250 ML ONE (10:14)
[2019-09-15] MEDS: POTASSIUM CHLORIDE 20 MEQ TAB CR PO SCH (10:42)
--- NOTE | 2019-09-15 11:13 | Diagnostic Imaging Report ---
EXAM: CHEST SINGLE (PORTABLE) DATE: 09/15/2019 10:30 AM INDICATION: Hypoxemia COMPARISON: 07/04/2019 FINDINGS: Right IJ tunneled dialysis catheter identified in stable position. The trachea is midline. There are increased patchy airspace opacities identified within throughout the lungs bilaterally. There is no evidence for lobar consolidation, pneumothorax, or significant. The cardiomediastinal silhouette is stable in appearance. No acute osseous abnormality is identified. IMPRESSION: Patchy increased airspace opacities identified bilaterally which are nonspecific but can be seen in the setting of an atypical/viral pneumonitis. Signed by: Dr. Jason Macedo MD on 09/15/2019 11:10 AM
[2019-09-15] MEDS ORDERED: HYDRALAZINE HCL 20 MG/ML VIAL IV NR (12:45)
--- NOTE | 2019-09-15 15:53 | NUR ---
MOT and face sheet given to DAVID Hairston to attempt transfer to alternate facilities that have COVID bed availability.
[2019-09-15] MEDS ORDERED: ASPIRIN 81 MG CHEW TAB PO ONE (17:45)
[2019-09-15] MEDS ORDERED: ALBUTEROL SULFATE HFA 8GM INHALATION AEROSOL INH PRN (19:15)
[2019-09-15] MEDS ORDERED: APIXABAN 5 MG TABLET PO SCH ×2 (19:15→21:00)
[2019-09-15] MEDS ORDERED: ACETAMINOPHEN 325 MG TAB PO PRN (19:15)
[2019-09-15] MEDS ORDERED: GUAIFENESIN/CODEINE 10 ML CUP PO PRN (19:15)
[2019-09-15] MEDS ORDERED: AZITHROMYCIN 500MG/NS 250 ML 250 ML IV SCH (19:15)
[2019-09-15 20:00] VITALS: BP 214/90
[2019-09-15] MEDS: HYDRALAZINE HCL 20 MG/ML VIAL IV PRN (20:13)
[2019-09-15] MEDS ORDERED: ZOLPIDEM TARTRATE 5 MG TAB PO PRN (21:00)
[2019-09-15] MEDS ORDERED: ATORVASTATIN 20 MG TAB PO SCH (21:00)
[2019-09-15 21:05] VITALS: BP 214/90
[2019-09-15] MEDS: APIXAB 2.5 MG TABLET PO SCH (21:33)
[2019-09-15] MEDS: ATORVASTATIN 40 MG TAB PO SCH (21:33)
[2019-09-15] MEDS: METOPROLOL TARTRATE 25 MG TAB PO SCH (22:15)
--- NOTE | 2019-09-15 23:20 | NUR ---
CALLED Casie VALDOVINOS. LEFT VOICE MESSAGE. AWAITING CALL BACK.
[2019-09-16] VITALS (8 sets, daily range): BP systolic 151–207; BP diastolic 81–112
[2019-09-16] MEDS: HYDRALAZINE HCL 20 MG/ML VIAL IV PRN ×2 (01:00→17:12)
--- NOTE | 2019-09-16 01:21 | Consultation ---
DATE OF CONSULTATION: Pulmonary Critical Care Consultation CHIEF COMPLAINT: Malaise, renal failure, and positive COVID test. HISTORY OF PRESENT ILLNESS: The patient is a 59-year-old woman. She has a history of stroke in early 2019. This affected her memory. She also has a history of Parkinson disease, atrial fibrillation, hypertension, and end-stage renal disease. She required hospitalization at [facility] in late June of 2019 with GI bleeding. She required a transfusion with packed red blood cells. Eventual endoscopy showed an AVM, that was cauterized. She now comes from [facility] with some malaise. She had a positive COVID test. She denies fevers, cough, or chest pain. She is not having nausea or vomiting. PAST SURGICAL HISTORY: 1. Status post cholecystectomy. 2. Status post dialysis access placement. PAST MEDICAL HISTORY: 1. End-stage renal disease. 2. Parkinson disease. 3. Paroxysmal atrial fibrillation. 4. Hypertension. 5. Cerebrovascular accident earlier this year. SOCIAL HISTORY: The patient is not a smoker or drinker. She is staying in [facility]. ALLERGIES: NO KNOWN DRUG ALLERGIES. FAMILY HISTORY: There is a history of heart disease and renal disease in the family. REVIEW OF SYSTEMS: The patient denies any headache. She has no fevers. She has no dyspnea. She has mild cough. No chest pain. She has no nausea or vomiting. She has no leg edema. PHYSICAL EXAMINATION: VITAL SIGNS: The patient is afebrile. Blood pressure is 172/86, saturation is 97%, and pulse is 54. HEENT: Shows no facial swelling or erythema. LYMPHATIC: Shows no submandibular, cervical, or supraclavicular adenopathy. CARDIAC: Reveals regular rate and rhythm. Normal S1 and S2. LUNGS: Auscultation of lungs shows clear breath sounds bilaterally. There is no wheezing. ABDOMEN: Soft and nontender. There is no rebound or guarding. EXTREMITIES: Show no leg edema or calf tenderness. There is no cyanosis or clubbing. SKIN: Shows no rashes. LABORATORY DATA: BUN to creatinine ratio is 26 and 2.31 with a potassium of 2.5. Other electrolytes are within normal limits. AST is 136. Total bilirubin is 2.0. Albumin is 2.4. White blood cell count is 4.01, hemoglobin is 9.8, and platelet count is 142. RADIOGRAPHIC DATA: Chest x-ray shows patchy airspace disease bilaterally, suggestive of viral pneumonia. IMPRESSION: 1. Coronavirus disease 2019 infection and viral pneumonia. 2. End-stage renal disease. 3. Atrial fibrillation. 4. Prior stroke with memory loss. 5. Hypokalemia. 6. Hypertension. PLAN: 1. Observation in the COVID unit. 2. Oxygen as needed. 3. Tylenol as needed for fever. 4. The patient to continue receiving dialysis. 5. Continue anticoagulation with Eliquis. 6. Hold dexamethasone for now because the patient is not having dyspnea or poor oxygen saturations. Kiet Velázquez MD [facility]/MODL /[id number]
[2019-09-16 02:41] LABS: CREATINE KINASE MB 2.1 ng/mL (0-5.0)
[2019-09-16 05:58] LABS: ALBUMIN 2.4 g/dL (3.5-5.0); ALBUMIN/GLOBULIN RATIO 0.5 (0.8-2.0); ANION GAP 14.9 mmol/L (8-16); CALCIUM 8.5 mg/dL (8.4-10.2); CREATININE, SERUM 2.24 mg/dL (0.57-1.11)
[2019-09-16 05:59] LABS: BASOPHILS % 0.2 % (0.0-1.0); HEMOGLOBIN 10.6 g/dL (12.0-16.0); LYMPHOCYTES # (AUTO) 1.6 (1.0-3.2); LYMPHOCYTES % 24.8 % (18.0-39.1); MEAN CORPUSCULAR HEMOGLOBIN 28.6 pg (28-32); MEAN CORPUSCULAR HGB CONC 35.3 g/dL (31-35); MEAN CORPUSCULAR VOLUME 81.1 fL (81-99); MONOCYTES # (AUTO) 0.6 (0.2-0.8); MONOCYTES % 9.8 % (4.4-11.3); NEUTROPHILS # (AUTO) 4.2 (2.1-6.9); NEUTROPHILS % 64.9 % (38.7-80.0); PLATELET COUNT 141 x10e3/uL (140-360); RED CELL DISTRIBUTION WIDTH 16.8 % (11.7-14.4)
[2019-09-16 06:03] LABS: POTASSIUM 2.9 mmol/L (3.5-5.1)
--- NOTE | 2019-09-16 06:09 | NUR ---
CALLED MD Casie VALDOVINOS REGARDING POTASSIUM LEVEL 2.9. LEFT MESSAGE. AWAITING CALL BACK.
--- NOTE | 2019-09-16 07:26 | NUR ---
REPORT GIVEN TO DAYSHIFT NURSE. ALERT AND ORIENTED. NO SIGNS IV INFILTRATION. BED LOCKED AND IN LOW POSITION. CALL LIGHT WITHIN REACH. BED ALARM ACTIVATED.
[2019-09-16] MEDS: DOCUSATE SODIUM 100 MG CAP PO SCH ×3 (08:28→21:01)
[2019-09-16] MEDS: ASPIRIN 81 MG CHEW TAB PO SCH (08:28)
[2019-09-16] MEDS: APIXAB 2.5 MG TABLET PO SCH ×2 (08:28→21:01)
[2019-09-16] MEDS ORDERED: POTASSIUM CHLORIDE 10MEQ EA PO SCH ×2 (08:30→10:15)
--- NOTE | 2019-09-16 08:39 | Diagnostic Imaging Report ---
EXAMINATION: CHEST SINGLE (PORTABLE) INDICATION: ^viral pneumonia ^[id number] ^[id number]. COMPARISON: 09/15/2019 FINDINGS: AP view TUBES and LINES: Right IJ dialysis catheter tip terminates at the cavoatrial junction. LUNGS: Redemonstration of multifocal consolidative opacities with increased dense consolidation in the right upper lobe. PLEURA: No pleural effusion or pneumothorax. HEART AND MEDIASTINUM: The cardiomediastinal silhouette is unremarkable. BONES AND SOFT TISSUES: No acute osseous lesion. Soft tissues are unremarkable. UPPER ABDOMEN: No free air under the diaphragm. IMPRESSION: Redemonstration of multifocal pneumonia with increased dense consolidation in the right upper lobe Signed by: Reji Fortune MD on 09/16/2019 8:35 AM
[2019-09-16] MEDS: LOSARTAN POTASSIUM 100 MG TAB PO SCH (08:43)
[2019-09-16] MEDS: METOPROLOL TARTRATE 25 MG TAB PO SCH ×2 (08:43→23:40)
--- NOTE | 2019-09-16 09:30 | NUR ---
dialysis notified of need for dialysis for today.
[2019-09-16] MEDS: POTASSIUM CHLORIDE 20 MEQ TAB CR PO SCH (12:11)
[2019-09-16] MEDS ORDERED: GUAIFENESIN/CODEINE 10 ML CUP PO PRN (15:45)
[2019-09-16] MEDS ORDERED: SODIUM CHLORIDE 0.9% 250ML 250 ML ONE (16:52)
--- NOTE | 2019-09-16 17:09 | Progress Note ---
DATE: SUBJECTIVE: The patient complains of some cough. She has no fevers. She is not having chest pain. PHYSICAL EXAMINATION: VITAL SIGNS: The blood pressure is 173/93, saturation is 100% and the pulse is 58. HEENT: No facial swelling or erythema. CARDIAC: Regular rate and rhythm with normal S1, S2. LUNGS: Auscultation of lungs reveals clear breath sounds bilaterally. There is no wheezing. ABDOMEN: Soft, nontender. There is no rebound or guarding. EXTREMITIES: No leg edema or calf tenderness. There is no cyanosis or clubbing. SKIN: No rashes. LABORATORY DATA: Potassium is 2.9. The BUN to creatinine ratio is 32 to 2.24. Total bilirubin is 2.2 and the AST is 123. Albumin is 2.4. IMPRESSION: 1. Viral pneumonia and coronavirus disease-19 infection. 2. End-stage renal disease. 3. Atrial fibrillation. 4. Prior stroke with memory loss. 5. Hypokalemia. PLAN: 1. Continue dialysis as needed. 2. Replace potassium. 3. Azithromycin and Rocephin. 4. Anticoagulation. 5. Cough suppressant. Kiet Velázquez MD [facility]/MOD[facility] /[id number]
[2019-09-16] MEDS: DEXAMETHASONE SOD PHOS 10 MG/1 ML VIAL IV SCH (17:11)
[2019-09-16] MEDS: CEFEPIME 1GM/NS 0.9% 50 ML 50 ML IV SCH (17:11)
[2019-09-16] MEDS: LINEZOLID 600 MG TAB PO SCH (17:11)
[2019-09-16] MEDS: ATORVASTATIN 40 MG TAB PO SCH (21:01)
--- NOTE | 2019-09-16 22:35 | Consultation ---
DATE OF CONSULTATION: REASON FOR CONSULTATION: Concern about COVID-19. HISTORY OF PRESENT ILLNESS: This patient is a 59-year-old, who has history of stroke. She was at [facility]. The patient has been not feeling well for a few days. COVID-19 came back positive. The patient is just weak in general. She has history of CVA, history of Parkinson's, atrial fibrillation, hypertension. She was here in June. She had GI bleed and she received blood. She had AVM malformation. She is coming from [facility] with malaise. Her COVID-19 came back positive. The patient has no specific complaint, just fatigue. She is really not a good source of information, so history was taken mainly from the chart. She does have history of cholecystectomy, IV access for dialysis. ALLERGIES: NKA. SOCIAL HISTORY: There is no smoking, drug abuse, or alcohol abuse. FAMILY HISTORY: Otherwise noncontributory. PAST MEDICAL HISTORY: The patient has history of end-stage disease, Parkinson disease, atrial fibrillation, hypertension, and CVA. LABORATORY DATA: Blood cultures were ordered. White count 6.5, hemoglobin 10, hematocrit 30. Her sodium 145, potassium 2.9, creatinine 2.24. MEDICATIONS: She is on potassium, metoprolol, Lopressor, Colace, Eliquis. PHYSICAL EXAMINATION: GENERAL: She is currently alert and oriented. VITAL SIGNS: Stable, currently afebrile. O2 saturation on nasal cannula is 94. HEENT: She is not icteric. NECK: Supple. CHEST: Crackles bilaterally. HEART: S1 and S2. ABDOMEN: Soft. IMPRESSION: 1. Coronavirus disease 2019, pneumonia. We will put her on Rocephin. The patient is coming from [facility]. We will put her on cefepime 1 g a day and Zyvox 600 IV q.12. We will start her on Decadron. 2. Chronic kidney disease. 3. She is already on Eliquis. 4. The patient looks comfortable and stable. She will be arranged for discharge to skilled care facility. Her Zyvox will be changed to oral to finish 5 days and the Decadron could be given oral for 10 days. MD ANA Williamson/DANII /[id number]
[2019-09-17] VITALS (10 sets, daily range): BP systolic 146–175; BP diastolic 80–96
--- NOTE | 2019-09-17 00:41 | Consultation ---
DATE OF CONSULTATION: 09/16/2019 HISTORY OF PRESENT ILLNESS: This is a 59-year-old female, underlying history of end-stage renal disease, has a dialysis catheter, admitted from [facility] with shortness of breath, found to have COVID pneumonia, which is multifocal, currently in isolation. Renal consulted for management of kidney failure. She has past history of atrial fibrillation, hypertension, end-stage renal disease, prior history of CVA, Parkinson disease. She interestingly denies any cough, shortness of breath. She is awake, on oxygen. She has had prior cholecystectomy. She has had a prior CVA. She does not appear to be in a respiratory distress. ALLERGIES: SHE HAS NO DRUG ALLERGIES. CURRENT MEDICATIONS: The patient was given potassium chloride tablets, she is on a scheduled dose, which I am going to stop. She is on losartan 25 mg p.o. q.12, hydralazine p.r.n., guaifenesin, Docusate, dexamethasone, atorvastatin, aspirin, apixaban, Eliquis 2.5 q.12. She is on azithromycin, cefepime. Azithromycin has been stopped. Dr. Sommer and Dr. Caesar Sharp are following. SOCIAL HISTORY: Does not smoke or drink. FAMILY HISTORY: Negative for kidney disease. LABORATORY TESTS: White count of 6.5, hemoglobin 10.6, potassium 2.9, which has been replaced, bicarb 25, creatinine 2.24. CK 345. PHYSICAL EXAMINATION: GENERAL: Awake, alert, lying supine, in no apparent distress. VITAL SIGNS: Blood pressure 186/93, pulse rate 64 irregularly irregular, respiratory rate 19. HEAD AND NECK: Cornea clear. LUNGS: Bilateral rales, scattered rhonchi. Harsh vesicular breath sounds. HEART: Irregular rhythm. ABDOMEN: Otherwise soft, nontender. No apparent visceromegaly. EXTREMITIES: Lower extremities, no edema. IMPRESSION: 1. End-stage renal disease. 2. Coronavirus disease positive. 3. Multifocal pneumonia. 4. Hypokalemia, replaced. PLAN: On dialysis for 3 hours with sodium 140, potassium 4, bicarb 35, calcium 2.5. UF 2-3 L as tolerated. We will obtain a BNP level tomorrow as well as chemistries. Strict I's and O's. Please see orders. MD CHRISTAL Weber/DANII /[id number]
[2019-09-17 05:27] LABS: ALBUMIN 2.4 g/dL (3.5-5.0); ALBUMIN/GLOBULIN RATIO 0.4 (0.8-2.0); ANION GAP 12.2 mmol/L (8-16); CALCIUM 8.5 mg/dL (8.4-10.2); CREATININE, SERUM 1.94 mg/dL (0.57-1.11); POTASSIUM 4.2 mmol/L (3.5-5.1)
--- NOTE | 2019-09-17 07:27 | NUR ---
BSSR GIVEN TO [facility]ARK UPDATED ON PLAN OF CARE
[2019-09-17] MEDS: DOCUSATE SODIUM 100 MG CAP PO SCH ×2 (08:08→21:30)
[2019-09-17] MEDS: APIXAB 2.5 MG TABLET PO SCH ×2 (08:09→21:21)
[2019-09-17] MEDS: LOSARTAN POTASSIUM 100 MG TAB PO SCH (08:09)
[2019-09-17] MEDS: LINEZOLID 600 MG TAB PO SCH ×2 (08:09→21:21)
[2019-09-17] MEDS: METOPROLOL TARTRATE 25 MG TAB PO SCH ×2 (08:09→21:22)
[2019-09-17] MEDS: ASPIRIN 81 MG CHEW TAB PO SCH (08:09)
--- NOTE | 2019-09-17 11:39 | NUR ---
SPOKE WITH PT CONCERNING THE SNF PLACEMENT IN [place], AGREED VERBALLY WILL FAX TO FACILITY, COMPLETED [facility] RTF AND COVID FORM.
--- NOTE | 2019-09-17 11:49 | Progress Note ---
DATE: SUBJECTIVE: The patient is seen and evaluated. Discussed with Dr. Sommer in detail. REVIEW OF SYSTEMS: Doing great. No nausea, vomiting, fever, chills, chest pain, shortness of breath, headache, rash, dysuria, polyuria, loss of taste, loss of smell, none of the above. PHYSICAL EXAMINATION: VITAL SIGNS: The patient is at room air saturating at 99%. Temperature 98.2, pulse 56, respirations 16, and blood pressure 172/96. GENERAL: Alert and oriented. No acute distress. Off oxygen on room air. CV: S1 and S2. CHEST: Equal expansion. Decreased breath sounds. No acute distress. ABDOMEN: Soft and nontender. No distention. HEENT: Moist. No pallor. No JVD. EXTREMITIES: Moves all. Trace edema. MEDICATIONS: Medication list reviewed. The patient is on Zyvox, cefepime, dexamethasone, and Eliquis. LABORATORY STUDIES: White count of 6.5, hemoglobin 10.6, and platelet 141. Sodium 140, potassium 4.2, and creatinine 1.94. The patient is on dialysis. Coronavirus PCR detected on 09/14. MICROBIOLOGY: Blood culture, negative 48 hours from 09/14. IMAGING: Chest x-ray from yesterday showed re-demonstration of multifocal pneumonia with increased dense consolidation in the right upper lobe. ASSESSMENT AND PLAN: 1. COVID-19 infection. 2. Chronic kidney disease. 3. Zyvox for a total of 5 days. Continue with dexamethasone. Also on cefepime, on room air. Discussed with case management. [facility] Please refer to chart for more information. Discussed with Dr. Sommer in details. Dictated by Everett Whitney PA-C (Al) Herrera Sommer MD /MODL /[id number]
--- NOTE | 2019-09-17 13:09 | Progress Note ---
DATE: SUBJECTIVE: The patient is not complaining of cough or dyspnea. PHYSICAL EXAMINATION: VITAL SIGNS: Blood pressure is 152/82, saturation is 98%, and the pulse is 74. HEENT: Shows no facial swelling or erythema. CARDIAC: Reveals regular rate and rhythm with normal S1 and S2. LUNGS: Auscultation of lungs reveals clear breath sounds bilaterally. There is no wheezing. ABDOMEN: Soft and nontender. There is no rebound or guarding. EXTREMITIES: Shows no leg edema or calf tenderness. There is no cyanosis or clubbing. SKIN: Shows no rashes. IMPRESSION: 1. Viral pneumonia and COVID-19 infection. 2. End-stage renal disease. 3. Atrial fibrillation. PLAN: 1. Arrange disposition. 2. Continue dialysis. 3. Complete antibiotics. MD MASSIEL Acosta/JIML /[id number]
--- NOTE | 2019-09-17 15:59 | NUR ---
CONTACTED FACILITY STILL PENDING AUTH AT [facility]
[2019-09-17] MEDS: CEFEPIME 1GM/NS 0.9% 50 ML 50 ML IV SCH (17:43)
[2019-09-17] MEDS: DEXAMETHASONE SOD PHOS 10 MG/1 ML VIAL IV SCH (17:43)
[2019-09-17] MEDS: ATORVASTATIN 40 MG TAB PO SCH (21:21)
[2019-09-18] VITALS (8 sets, daily range): BP systolic 118–186; BP diastolic 79–95
[2019-09-18 03:40] LABS: HEMATOCRIT 32.3 % (34.2-44.1); HEMOGLOBIN 11.2 g/dL (12.0-16.0); LYMPHOCYTES % 11.2 % (18.0-39.1); MEAN CORPUSCULAR HEMOGLOBIN 28.1 pg (28-32); MEAN CORPUSCULAR HGB CONC 34.7 g/dL (31-35); MONOCYTES # (AUTO) 0.4 (0.2-0.8); NEUTROPHILS # (AUTO) 7.3 (2.1-6.9); NEUTROPHILS % 83.5 % (38.7-80.0); PLATELET COUNT 150 x10e3/uL (140-360); RED BLOOD COUNT 3.99 x10e6/uL (3.6-5.1); RED CELL DISTRIBUTION WIDTH 16.6 % (11.7-14.4)
[2019-09-18 04:04] LABS: CREATINE KINASE MB 1.9 ng/mL (0-5.0)
[2019-09-18] MEDS: METOPROLOL TARTRATE 25 MG TAB PO SCH (07:15)
[2019-09-18 07:58] LABS: ANION GAP 14.1 mmol/L (8-16); CALCIUM 8.4 mg/dL (8.4-10.2); POTASSIUM 4.1 mmol/L (3.5-5.1)
[2019-09-18 08:00] LABS: CREATININE, SERUM 3.05 mg/dL (0.57-1.11)
--- NOTE | 2019-09-18 08:09 | NUR ---
SPOKE WITH REP, STILL PENDING AUTH FOR SNF
[2019-09-18] MEDS: LOSARTAN POTASSIUM 100 MG TAB PO SCH (09:00)
[2019-09-18] MEDS ORDERED: HEPARIN SOD (PORCINE) 1000 UNIT/ML SDV IV PRN (09:15)
[2019-09-18] MEDS ORDERED: SODIUM CHLORIDE 0.9% 1000ML 2,000 ML IV PRN (09:15)
[2019-09-18] MEDS: DOCUSATE SODIUM 100 MG CAP PO SCH (09:52)
[2019-09-18] MEDS: APIXAB 2.5 MG TABLET PO SCH (09:52)
[2019-09-18] MEDS: LINEZOLID 600 MG TAB PO SCH (09:52)
[2019-09-18] MEDS: ASPIRIN 81 MG CHEW TAB PO SCH (09:52)
--- NOTE | 2019-09-18 09:55 | NUR ---
blood pressure medications held due to patient being on dialysis machine. buttonhole maker hand will notify me if he needs me to give oral meds.
--- NOTE | 2019-09-18 12:39 | Progress Note ---
DATE: Nephrology Followup Note SUBJECTIVE: The patient did not report . OBJECTIVE: VITAL SIGNS: Temperature 97.9, respirations 17, heart rate 54, blood pressure 168/85. In view of COVID-19 positive, physical exam was not done. LABORATORY DATA: Sodium 140, potassium 4.1, chloride 106, CO2 24, BUN IMPRESSION: 1. End stage renal disease, on hemodialysis, status post short hemodialysis yesterday. 2. COVID-19 pneumonia. 3. Stable electrolytes and metabolic profile. 4. Anemia secondary to end stage renal disease. PLAN: Strict I's and O's. Continue present treatment. Continue short dialysis today and then hopefully no dialysis over the weekend, then dialyze for 3 hours. Sodium 140, potassium 3K bath, 2.4 calcium bath, . Further recommendations to follow. Majo Posadas MD [facility]/JIML /[id number]
--- NOTE | 2019-09-18 13:58 | NUR ---
[facility] FACILITY DISCHARGE INFORMATION PATIENT HAS BEEN ACCEPTED TO: NAME: WENDY ALEJANDRE ADDRESS:[address] [place] [address] [address] DAWSON MD: GABINO ROOM: 115 NURSE CALL REPORT TO: [phone] IMM SIGNED AND OBTAINED (if applicable): THE FOLLOWING DOCUMENTS MUST ACCOMPANY PATIENT FOR TRANSFER: COPIED CHART: PACKET
--- NOTE | 2019-09-18 16:15 | Progress Note ---
DATE: Pulmonary Progress Note SUBJECTIVE: The patient was feeling better. She has no cough or dyspnea. PHYSICAL EXAMINATION: VITAL SIGNS: Blood pressure is 118/80, saturation is 98%, and pulse is 59. HEENT: Shows no facial swelling or erythema. CARDIAC: Reveals regular rate and rhythm with normal S1, S2. LUNGS: Auscultation of lungs reveals clear breath sounds bilaterally. There is no wheezing. ABDOMEN: Soft, nontender. There is no rebound or guarding. EXTREMITIES: Shows no leg edema or calf tenderness. There is no cyanosis or clubbing. SKIN: Shows no rashes. NEUROLOGICAL: Shows no focal abnormalities. IMPRESSION: 1. Viral pneumonia and COVID-19 infection. 2. End-stage renal disease. 3. Atrial fibrillation. PLAN: 1. Discharge to SNF with COVID preparation. 2. Outpatient dialysis. 3. Continue current cardiac regimen. MD MASSIEL Acosta/DANII /[id number]
[2019-09-18] MEDS: CEFEPIME 1GM/NS 0.9% 50 ML 50 ML IV SCH (17:00)
[2019-09-18] MEDS: DEXAMETHASONE SOD PHOS 10 MG/1 ML VIAL IV SCH (17:00)
--- NOTE | 2019-09-18 17:03 | NUR ---
pt accepted to [facility]. report called to samy AKHTAR. patients poa- roya- notified. transportation arranged. waiting for arrival at this time.
--- NOTE | 2019-09-18 17:41 | NUR ---
patient transported off unit via [facility] in stable condition.
== END 2019-09-18 17:35 | DRG 177 ==
LOC: ER 09:25 → ERHOLD 17:45 → IMCU 20:58
PROC: 5A1D70Z Performance of Urinary Filtration, Intermittent, Less than 6 Hours Per Day (ICD-10-PCS; principal; 2019-09-16)
PROC: 5A1D70Z Performance of Urinary Filtration, Intermittent, Less than 6 Hours Per Day (ICD-10-PCS; 2019-09-18)
DX: U07.1 COVID-19 (principal); N18.6 End stage renal disease; J12.89 Other viral pneumonia; J15.9 Unspecified bacterial pneumonia; I12.0 Hypertensive chronic kidney disease with stage 5 chronic kidney disease or end stage renal disease; E87.6 Hypokalemia; I16.0 Hypertensive urgency; Z99.2 Dependence on renal dialysis; I48.0 Paroxysmal atrial fibrillation; E78.5 Hyperlipidemia, unspecified; G20 Parkinson's disease; Z90.49 Acquired absence of other specified parts of digestive tract; D63.1 Anemia in chronic kidney disease; I69.311 Memory deficit following cerebral infarction; Z79.01 Long term (current) use of anticoagulants
CPT/HCPCS: 36415; 71045; 80048; 80053; 82550; 82553; 83605; 83880; 84484; 85025; 86705; 86706; 87040; 87340; 87635; 97139; 99285; J0360; J0456; J0692; J1100; J1644; J3480; J7050